=== PATIENT | male | born 1955 | race Caucasian/White ===

== ENCOUNTER → 2020-08-28 15:21 | Outpatient (CLI) | payer MEDICARE, SELFPAY ==
--- NOTE | ~2020-08-28 | XR_ITS ---
XR chest 2V DATE: 08/28/2020 15:34 INDICATION: Chronic obstructive pulmonary disease TECHNIQUE: 2 views COMPARISON: None FINDINGS: Normal heart size. An approximately 12 mm nodular density overlies the lower thoracic spine on the lateral view, not alisha dily detected on the PA view; consider CT thorax to exclude a pulmonary mass lesion. No hilar or mediastinal enlargement. No pulmonary infiltrate or consolidation, pleural effusion or pu lmonary vascular congestion or pneumothorax. 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 IMPRESSION: CT Thorax should be considered to exclude lower lobe mass (12 mm nodular density overlyin g lower thoracic spine on lateral view) Reviewed, dictated and finalized at location A. IMPRESSION: CT Thorax should be considered to exclude lower lobe mass (12 mm no dular density overlying lower thoracic spine on lateral view)
== END ==
PROVIDERS: PCP Family Medicine; Visit Provider Family Medicine
DX: J44.9 Chronic obstructive pulmonary disease, unspecified (principal); R91.8 Other nonspecific abnormal finding of lung field
CPT/HCPCS: 71046

== ENCOUNTER 2020-09-24 12:25 | Outpatient (CLI) | payer MEDICARE, SELFPAY ==
--- NOTE | 2020-09-24 16:20 | WPDPFTINT ---
PFT Procedure Performed PFT Procedure Performed Spirometry with Pre/Post Bronchodilator Plethysmography (Lung Vol) Diffusing Cap (DLCO) Flow Vol Loop PFT Interpretation This is a pulmonary function test with pre and post-bronchodilator spirometry, plethysmography and diffusing capacity. The test was performed and results interpreted in accordance with the 2019 and 2005 ATS/ERS Task Force guidelines respectively using the Global Lung Function Initiative-2012 reference equations. Patient demonstrated good effort and cooperation. Reproducibility criteria were met. The quality of the pre bronchodilator spirometry maneuver was Grade A and post bronchodilator spirometry maneuver was Grade A. Findings: Spirometry: There is decreased maximal expiratory airflow at all lung volumes with a concave expiratory flow tracing. The pre bronchodilator FVC is 3.40 L, 96% predicted. The pre bronchodilator FEV1 is 2.04 L, 74% predicted. The FEV1: FVC ratio 60%. The post bronchodilator FVC is 3.88 L, representing a 14% increase. The post bronchodilator FEV1 is 2.33 L, representing a 14% increase. Plethysmography: The total lung capacity is 5.08 L, 87% predicted. The functional residual capacity is 2.34 L, 73% predicted. The residual volume is 1.53 L, 74% predicted. Diffusing capacity: The absolute diffusion capacity is 20.5, 77% predicted. The diffusing capacity corrected for alveolar volume is 4.17, 98% predicted. Impression: There is a mild obstructive abnormality with significant improvement after inhaling a single dose of albuterol. The lung volumes are normal. The diffusing capacity is normal. There are no prior studies for comparison
== END 2020-09-24 12:26 | disposition home or self-care (01) ==
LOC: ANHPFT 12:28
PROVIDERS: PCP Family Medicine; Visit Provider Family Medicine
DX: J44.9 Chronic obstructive pulmonary disease, unspecified (principal); J94.2 Hemothorax
CPT/HCPCS: 94060; 94726; 94729

== ENCOUNTER 2020-10-08 18:23 | Inpatient (IN) | payer MEDICARE, SELFPAY ==
[2020-10-08] VITALS (11 sets, daily range): BP systolic 100–111; BP diastolic 60–84; PULSE 80–83; RESP 17–26; TEMP 38.5; O2SAT 78–97
--- NOTE | ~2020-10-08 | XR_ITS ---
EXAMINATION: XR chest 1V portable DATE: 10/16/2020 05:47 INDICATION: COVID-19 pneumonia. TECHNIQUE: A single frontal view of the chest was obtained. COMPARISON: Chest single view 10/14/2020, chest CT 10/09/2020 FINDINGS: Again seen is volume loss in right hemithorax. There are airspace opacities in all lung zon es bilaterally, right worse than left. No pleural effusion or pneumothorax. The heart size is normal. IMPRESSION: 1. Stable diffuse lung disease, right worse than left, consistent with pneumonia. Reviewed, dictated and finalized at location A. IMPRESSION: 1. Stable diffuse lung disease, right worse than left, consistent with pneumoni a.
--- NOTE | ~2020-10-08 | XR_ITS ---
EXAMINATION: XR chest 1V portable DATE: 10/14/2020 05:39 INDICATION: COVID TECHNIQUE: frontal view of the chest was obtained. COMPARISON: Chest radiograph dated 10/12/[address] dated 10/09/2020 FINDINGS: Right-sided predominant patchy airspace opacities with some improvement in previous more dense consol idation in the right mid to upper lung zone. No interval change in more streaky opacities at the left lower lung zone. No pneumothorax. Possible small right pleural effusion. Calcified nodules at the me dial right lower lung zone consistent with old granulomatous disease. Volume loss right hemithorax wi th rightward shift of the normal sized heart and mediastinum. The cardiomediastinal silhouette is nor mal. Visualized bones and soft tissues are unremarkable. IMPRESSION: 1. Asymmetric bilateral lung disease most prominent throughout the right lung where there is been mp e improvement in the right mid to upper lung zone and to lesser degree and without change at the left lower lung zone. The distribution and temporal progression of lung disease suggests COVID pneumonia potentially with improvement in superimposed secondary pneumonia in the right mid to upper lung zone. 2. Small right pleural effusion. Reviewed, dictated and finalized at location A. IMPRESSION: 1. Asymmetric bilateral lung disease most prominent throughout the right lung w here there is been some improvement in the right mid to upper lung zone and to lesser degree and without change at the left lower lung zone. The distribution and temporal progression of lung disease suggests COVID pneumonia potentially w ith improvement in superimposed secondary pneumonia in the right mid to upper l say zone. 2. Small right pleural effusion.
--- NOTE | ~2020-10-08 | US_ITS ---
EXAMINATION: US venous doppler [facility] DATE: 10/10/2020 15:45 INDICATION: Lower limb pain. TECHNIQUE: Grayscale ultrasound images without and with compression and Doppler ultrasound images of the bilateral lower extremity veins were obtained. COMPARISON: None. FINDINGS: The visualized portions of right common femoral vein, profunda (deep) femoral vein, femoral vein, pop liteal vein, peroneal veins, posterior tibial veins, and greater saphenous vein outflow are patent. The visualized portions of left common femoral vein, profunda femoral vein, femoral vein, popliteal v ein, peroneal veins, posterior tibial veins, and greater saphenous vein outflow are patent. IMPRESSION: 1. No deep venous thrombosis. Reviewed, dictated and finalized at location A.
--- NOTE | ~2020-10-08 | US_ITS ---
EXAMINATION: US abdomen limited DATE: 10/09/2020 17:20 INDICATION: Abnormal liver function tests. TECHNIQUE: Multiple grayscale and Doppler ultrasound images of the abdomen were obtained. COMPARISON: None. FINDINGS: The visualized portions of the head and body of the pancreas are normal. The liver is mahendra l without focal lesion. No liver surface nodularity. There is normal flow in main portal vein. The ga llbladder is normal in size. No gallstones or gallbladder wall thickening. There was no sonographic M urphy sign. The common duct is normal and measures 5 mm. IMPRESSION: 1. Normal right upper quadrant ultrasound. Reviewed, dictated and finalized at location A.
--- NOTE | ~2020-10-08 | CT_ITS ---
EXAMINATION: CTA chest PE protocol DATE: 10/09/2020 17:25 INDICATION: Shortness of breath. TECHNIQUE: Computed tomography angiography (CTA) of the chest was performed with 100 mL Omnipaque-350 intravenous contrast timed to evaluate the pulmonary arteries. Coronal maximum intensity projection 3D-reconstructions were created by the technologist. Automated exposure control and iterative reconst ruction technique were employed. The dose-length product was 363.53 mGy-cm. COMPARISON: Chest single view 10/08/2020, chest 2 views 08/28/2020 FINDINGS: There is volume loss of right hemithorax. There are widespread airspace and groundglass opa cities with air bronchograms in right lung, worst in right upper lobe. Chronic densities in right diane g lower lobe that may be aspirated barium. There are peripheral patchy airspace and groundglass opaci ties in left upper lobe and left lower lobe. There is a small right pleural effusion. The heart size is normal. There are coronary artery calcifications. No pericardial effusion. There is no pulmonary e mbolus. There is a small sliding hiatal hernia. There is mild thoracic spondylosis. There is a chroni c compression fracture of T4. IMPRESSION: 1. No pulmonary embolus. 2. Diffuse lung disease, worst in right upper lobe, consistent with pneumonia. 3. Small right pleural effusion. 4. Small sliding hiatal hernia. Reviewed, dictated and finalized at location A.
--- NOTE | ~2020-10-08 | XR_ITS ---
EXAMINATION: XR chest 1V portable DATE: 10/08/2020 19:34 INDICATION: Shortness of breath and fever. TECHNIQUE: A single frontal view of the chest was obtained. COMPARISON: Chest 2 views 08/28/2020 FINDINGS: There are airspace opacities in all right lung zones and left lower lung zone. No pleural e ffusion or pneumothorax. The heart size is normal. IMPRESSION: 1. Airspace opacities in right lung and left lower lung zone, consistent with pneumonia. Reviewed, dictated and finalized at location A. IMPRESSION: 1. Airspace opacities in right lung and left lower lung zone, consistent with p neumonia.
--- NOTE | ~2020-10-08 | XR_ITS ---
EXAMINATION: XR chest 1V portable INDICATION: Shortness of breath, COVID 19 TECHNIQUE: Portable AP chest at 0504 hours COMPARISON: 10/09/2020, 10/08/2020 FINDINGS: Diffuse bilateral airspace opacities persist, right greater than left. There is slight wors ening throughout the right lung. No pleural effusion or pneumothorax is identified. The cardiac silho uette is obscured. IMPRESSION: 1. Diffuse lung disease with interval worsening in the right lung, consistent with COVID 19 pneumonia . Reviewed, dictated and finalized at location A. IMPRESSION: 1. Diffuse lung disease with interval worsening in the right lung, consistent w ith COVID 19 pneumonia.
--- NOTE | 2020-10-08 18:39 | ECG_ITS ---
Measurements Intervals [place] Rate: 83 P: 50 DE: 190 QRS: -2 QRSD: 98 T: 52 QT: 375 QTc: 442 Interpretive Statements SINUS RHYTHM BORDERLINE T WAVE ABNORMALITY- HIGH LATERAL LEADS BASELINE ARTIFACT- I, II, III, AVR, AVL, AVF, V1-V6 BORDERLINE ECG Electronically Signed On 10-08-2020 20:07:54 CDT by Rohith Ramirez D.O.
--- NOTE | 2020-10-08 19:32 | ED.SOB ---
HPI - SOB/Dyspnea General Chief Complaint: Shortness of Breath/Dyspnea Stated Complaint: sob Time Seen by Provider: 10/08/20 19:32 History of Present Illness HPI Narrative: 65 yo male w/ h/o htn, prostate cancer presents to the ED c/o SOB. He reports that he has had a cough for at least the past 2 weeks. Over the past week or so his symptoms have become more severe he has become very short of breath. He had a fever up to 102 at home. He believes that his symptoms are actually mildly improved today. His RA O2 sat during triage was 78%. Related Data Home Medications Medication Instructions Recorded Confirmed fluticasone fur. 100 mcg-umeclid 1 inhalation INHALATION DAILY 12/21/18 08/28/20 62.5 mcg-vilant 25 mcg inhalat.powder tadalafil 20 mg tablet 20 mg PO DAILY PRN 04/19/20 08/28/20 Allergies Allergy/AdvReac Type Severity Reaction Status Date / Time No Known Allergies Allergy Verified 12/21/18 08:53 Review of Systems Review of Systems: All systems reviewed & are unremarkable except as noted in HPI and below Constitutional: Constitutional: Reports chills, Reports fever(s) and Reports weakness Eyes: Eyes: Reports no additional eye complaints ENT: Reports system reviewed and no additional complaints, except as documented Cardiovascular: Cardiovascular: Denies chest pain Respiratory: Respiratory: Reports chest congestion, Reports cough, Reports dyspnea and Reports wheezing Gastrointestinal: Comments: loss of appetite Neurologic: Reports system reviewed and no additional complaints, except as documented [facility] Past Medical History Medical History Abnormal chest x-ray with multiple lung nodules (08/28/20) 12 mm nodule overlying the lower thoracic spine on lateral view of chest x-ray Acute bronchitis Acute non-recurrent maxillary sinusitis BMI 29.0-29.9,adult Body mass index (bmi) 30.0-30.9, adult (09/21/18) Eczema (04/19/20) right thigh Gastro-esophageal reflux disease without esophagitis Polyp of colon Prostate cancer Radiation proctitis Family History Family History Sibling Family history of schizophrenia, Onset Age: 65 Patient's brother is in good health Mother Patient's mother is , Onset Age: 81 Family history of cardiovascular disease Family history of chronic obstructive pulmonary disease Family history of emphysema Family history of renal failure Father Patient's father is , Onset Age: 42 Grandparent Acute myocardial infarction Cerebrovascular accident Family history of Alzheimer's disease Family history of lung cancer Social History Social History Smoking status: Former smoker Alcohol intake: current Drinks per week: 21 Substance use: never Substance use type: does not use Exam Const: General: no acute distress, alert and ill appearing Orientation/consciousness: patient oriented x3 HENMT: Head: normal to inspection Neck: Neck: normal visual inspection and no lymphadenopathy Chest: Chest palpation & inspection: no tenderness Resp: Effort & Inspection: tachypneic Auscultation: clear to auscultation bilaterally, crackles, no rales, no rhonchi and wheezes Cardio: Jugular venous distension: no JVD Rate: regular rate Rhythm: regular rhythm Heart sounds: no murmurs GI: Inspection: non-distended GI Palp: Yes Soft to palpation and No Tenderness to palpation present (GI) Skin: General skin exam: normal color Neuro: General: patient oriented x3 and moves all extremities Speech: normal speech Extrem: General: no edema Psych: Appearance: well kempt Affect: normal affect Course Vital Signs Vital signs: Vital Signs Temperature 38.5 C H 10/08/20 18:34 Pulse Rate 83 10/08/20 18:34 Respiratory Rate 24 H 10/08/20 18:34 Blood Pressure 105/84
[2020-10-08 19:40] LABS: Basophils Percent Auto 0.2 % (0.2-1.2); Hemoglobin 12.8 g/dL (14.0-18.0); Immature Granulocyte Absolute 0.05 K/mm3 (0.00-0.031); Immature Granulocyte Percent A 1.1 % (0-0.5); Lymphocytes Absolute Auto 0.36 K/mm3 (0.9-3.2); Lymphocytes Percent Auto 7.9 % (18.3-44.2); Mean Corpuscular HGB Conc 33.7 g/dl (32-36); Mean Corpuscular Hemoglobin 29.5 pg (26-34); Mean Corpuscular Volume 87.6 fl (80-100); Mean Platelet Volume 11.5 fl (7.4-10.4); Monocytes Absolute Auto 0.3 K/mm3 (0.1-0.6); Monocytes Percent Auto 7.3 % (2.6-8.5); Neutrophils Absolute Auto 3.8 K/mm3 (1.3-6.7); Neutrophils Percent Auto 83.5 % (45.5-73.1); Platelet Count Result 168 k/mm3 (150-375); Red Blood Count 4.34 M/mm3 (4.6-6.20); Red Cell Distribution Width 13.8 % (11.5-14.5); White Blood Count 4.6 K/mm3 (4.5-10.0)
[2020-10-08 20:01] LABS: Anion Gap 12 mmol/L (8-16); Blood Urea Nitrogen 21 mg/dL (9-20); Calcium 9.1 mg/dL (8.4-10.2); Carbon Dioxide 27 mmol/L (22-30); Chloride 89 mmol/L (98-107); Estimated CRCL calculation 43 ml/min; Estimated Glomerular Filt Rate 47; Glucose 127 mg/dL (65-110); Potassium 3.8 mmol/L (3.4-5.0); Sodium 128 mmol/L (137-145)
[2020-10-08] MEDS: SODIUM CHLORIDE 0.9% IV 1,000 ML 999 ML IV CONT (20:37)
[2020-10-08 20:40] LABS: Alveolar/Arterial O2 Gradient 138.7 mmHg; Carboxyhemoglobin 0.5 % THb (0-2.0); Device ROOM AIR; Fractional Inspired Oxygen 36 %; HCO3 ABG 25.4 mEq/l (22.0-26.0); Methemoglobin ABG 0.2 %THb (0-1.5); Modified Allen's Test Pass; Oxygen Content ABG 17.3 %vol (16.0-22.0); Oxyhemoglobin 94.3 % THb (90.0-100.0); PO2 ABG 76.2 mmHg (80.0-100.0); PO2 FiO2 Ratio Arterial Blood 2.12 %; Site Drawn LEFT RADIAL; pH ABG 7.467 (7.350-7.450)
[2020-10-08] MEDS: ALBUTEROL SULFATE NEB 2.5 MG/0.5 ML INH 5 MG INHALATION (20:46)
[2020-10-08] MEDS: IPRATROPIUM BR 0.02% INH SOLN 0.5 MG/2.5 ML VIAL INHALATION (20:47)
[2020-10-08 20:59] LABS: Alanine Aminotransferase 62 U/L (4-50); Albumin Level 4.3 g/dL (3.5-5.1); Alkaline Phosphatase 42 U/L (38-126); Aspartate Amino Transferase 173 U/L (17-59); Bilirubin,Total 0.6 mg/dL (0.2-1.3)
--- NOTE | 2020-10-08 23:07 | PM.IMHP ---
H&P: HPI History of Present Illness Date/Time: 10/08/20 23:07 Chief Complaint: Shortness of breath Narrative: 65 yo male w/ h/o htn, prostate cancer recently completed his radiation treatment presents to the ED with c/o SOB. He reports that he has had a cough for at least the past 2 weeks. And has been coughing up quite a bit of sputum. No blood in the sputum. He has been progressively getting short of breath and hence came to the ER for evaluation. He also reports some fever lately with 1 time fever went up to 102 at home. He has been taking cough medicine at home which is Robitussin. He has been doing his breathing treatment regularly as well. On arrival to the ED his saturation was noted to be 78% on room air was placed on oxygen supplementation. Evaluation showed airspace opacities in the right lung and left lower lung zone consistent with pneumonia. COVID test was done and is pending resolved. He did finish the COVID vaccination in the past. He is admitted for further evaluation and management. Review of Systems Review of Systems: - CONSTITUTIONAL: Denies weight loss, reports fever and chills. - HEENT: Denies changes in vision and hearing - RESPIRATORY: Reports SOB and cough. - CV: Denies palpitations and CP. - GI: Denies abdominal pain, nausea, vomiting and diarrhea. - : Denies dysuria and urinary frequency. - MSK: Denies myalgia and joint pain. - SKIN: Denies rash and pruritus. - NEUROLOGICAL: Denies headache and syncope. - PSYCHIATRIC: Denies recent changes in mood. Denies anxiety and depression. All systems reviewed & are unremarkable except as noted in HPI and below Constitutional: Constitutional: Reports fatigue and Reports weakness Neurologic: Reports weakness Endocrine: Endocrine: Reports fatigue [facility] Past Medical History Medical History Abnormal chest x-ray with multiple lung nodules (08/28/20) 12 mm nodule overlying the lower thoracic spine on lateral view of chest x-ray Acute bronchitis Acute non-recurrent maxillary sinusitis BMI 29.0-29.9,adult Body mass index (bmi) 30.0-30.9, adult (09/21/18) Eczema (04/19/20) right thigh Gastro-esophageal reflux disease without esophagitis Polyp of colon Prostate cancer Radiation proctitis Family History Family History Sibling Family history of schizophrenia, Onset Age: 65 Patient's brother is in good health Mother Patient's mother is , Onset Age: 81 Family history of cardiovascular disease Family history of chronic obstructive pulmonary disease Family history of emphysema Family history of renal failure Father Patient's father is , Onset Age: 42 Grandparent Acute myocardial infarction Cerebrovascular accident Family history of Alzheimer's disease Family history of lung cancer Social History Social History Smoking status: Former smoker Alcohol intake: current Drinks per week: 21 Substance use: never Substance use type: does not use Meds Home Medications and Allergies Home Medications Medication Instructions Recorded Confirmed Type fluticasone fur. 100 mcg-umeclid 1 inhalation INHALATION DAILY 12/21/18 08/28/20 History 62.5 mcg-vilant 25 mcg inhalat.powder allopurinol 300 mg tablet 300 mg PO DAILY #90 tablet 10/31/19 08/28/20 Rx amlodipine 10 mg tablet 10 mg PO DAILY #90 tablet 10/31/19 08/28/20 Rx fenofibrate nanocrystallized 145 145 mg PO DAILY #90 tablet 10/31/19 08/28/20 Rx mg tablet metoprolol succinate 100 mg 100 mg PO DAILY #90 tablet 10/31/19 08/28/20 Rx tablet,extended release 24 hr omeprazole 40 mg capsule,delayed 40 mg PO DAILY #90 cap 03/13/20 08/28/20 Rx release tadalafil 20 mg tablet 20 mg PO DAILY PRN 04/19/20 08/28/20 History triamcinolone acetonide 0.5 % 1 applic TOPICAL BI
[2020-10-09] VITALS (14 sets, daily range): BP systolic 102–118; BP diastolic 55–82; PULSE 63–81; RESP 18–26; TEMP 36.3–37.7; O2SAT 92–99
[2020-10-09] MEDS: DEXAMETHASONE SOD PHOS INJ 4 MG/ML VIAL 6 MG IV PUSH ×2 (00:39→09:47)
[2020-10-09] MEDS: SODIUM CHLORIDE 0.9% IV 1,000 ML 75 ML IV CONT (00:44)
[2020-10-09] MEDS: diazePAM (*CRX) 10 MG TABLET PO ×2 (00:45→21:51)
[2020-10-09 01:37] LABS: NT Pro B Type Natriuretic Pept 118 pg/mL (5-100)
[2020-10-09] MEDS: ALBUTEROL SULFATE NEB 2.5 MG/0.5 ML INH 5 MG INHALATION ×2 (02:42→09:29)
[2020-10-09] MEDS: IPRATROPIUM BR 0.02% INH SOLN 0.5 MG/2.5 ML VIAL INHALATION ×2 (02:43→09:30)
--- NOTE | 2020-10-09 08:18 | ADMGEN ---
This patient, Heladio Cantu, was admitted to 3 [facility] Surg Room 332-01. Patient/family oriented to hospital policies and general routines including ID bracelet, bed and alarms, visiting hours, pain management, procedures, bathroom and other care routines, personal items, smoking policy, room service/diet, and visiting hours. Information on how to activate the Rapid Response Team has been discussed. Patient/Family are encouraged to report perceived risks to care and to ask questions if they do not understand what they are told or what they should do. Patient discussed health history, denying things that later showed up in his record. It was unclear whether this was because he was tired or just having difficulty expressing himself r/t difficulty hearing. He was plesant, though he was first found pacing around the room and was encouraged to stay in bed when not assisted. He had no observed wounds or skin problems. He discussed psych history and problems at home. 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
[2020-10-09 09:33] LABS: Alanine Aminotransferase 60 U/L (4-50); Albumin Level 3.9 g/dL (3.5-5.1); Alkaline Phosphatase 37 U/L (38-126); Anion Gap 11 mmol/L (8-16); Aspartate Amino Transferase 135 U/L (17-59); Bilirubin,Total 0.9 mg/dL (0.2-1.3); Blood Urea Nitrogen 16 mg/dL (9-20); CRP 8.9 mg/dL (<1.0); Calcium 8.4 mg/dL (8.4-10.2); Carbon Dioxide 24 mmol/L (22-30); Chloride 104 mmol/L (98-107); Estimated CRCL calculation 58 ml/min; Estimated Glomerular Filt Rate > 60; Glucose 148 mg/dL (65-110); Lactate Dehydrogenase 1161 U/L (313-618); Sodium 139 mmol/L (137-145)
[2020-10-09] MEDS: METOPROLOL SUCCINATE EXT REL 100 MG TABCR PO (09:45)
[2020-10-09] MEDS: SERTRALINE HCL 50 MG TABLET PO (09:45)
[2020-10-09] MEDS: FENOFIBRATE NANOCRYSTALLIZED 145 MG TABLET PO (09:45)
[2020-10-09 09:46] LABS: D Dimer 5.72 ug/mL (<0.48)
[2020-10-09] MEDS: ENOXAPARIN 40 MG/0.4 ML SYRINGE SUB-Q (09:46)
[2020-10-09] MEDS: PANTOPRAZOLE 40 MG TABLET PO (09:46)
[2020-10-09] MEDS: allopurinoL 300 MG TABLET PO (09:46)
[2020-10-09] MEDS: SIMVASTATIN 20 MG TABLET PO (09:46)
[2020-10-09] MEDS: FLUTICASONE/UMECLIDIN/VILANTER 100-62.5-25 MCG ELLIPTA 1 PUFF INHALATION (10:03)
[2020-10-09] MEDS: BUMETANIDE INJ 1 MG/4 ML VIAL IV PUSH (10:50)
[2020-10-09] MEDS: PSYLLIUM POWDER PACKET 1 PACKET BY MOUTH (10:51)
--- NOTE | 2020-10-09 13:57 | P.PNIM_ITS ---
Progress Note: A&P Assessment and Plan (1) Acute and chronic respiratory failure with hypoxia: Code(s): J96.21 - Acute and chronic respiratory failure with hypoxia Status: Acute Assessment and Plan: * Chest xray does show PNA * Blood gas is Respiratory alkalosis * Supplemental oxygen to maintain a saturation greater than 94% (2) Pneumonia: Qualifiers: Laterality: bilateral Lung location: lower lobe of lung Pneumonia type: due to unspecified organism Qualified Code(s): J18.9 - Pneumonia, unspecified organism Code(s): J18.9 - Pneumonia, unspecified organism Status: Acute Assessment and Plan: * Chest xray showed pneumonia, looks like covid * Patient stated he was vaccinated * WBC is 4.6, neutro 83.5 * IV azithromycin and Rocephin * will start patient on remdesivir * Decadron IV 6mg, will change to BID * lovenox * COVID test pending * Trelegy ellipta, albuterol, and atrovent * legionella, mycoplasma pending (3) Chronic obstructive pulmonary disease: Qualifiers: COPD type: unspecified COPD Qualified Code(s): J44.9 - Chronic obstructive pulmonary disease, unspecified Code(s): J44.9 - Chronic obstructive pulmonary disease, unspecified Status: Acute Assessment and Plan: * Continue home Trelegy Ellipta and albuterol * supplemental oxygen * titrate to maintain saturation of greater than 92% (4) Person under investigation for COVID-19: Code(s): Z20.822 - Contact with and (suspected) exposure to COVID-19 Status: Acute Assessment and Plan: * Covid swab pending * Will start remdesivir * Decadron already started. * Inflammatory markers elevated with a ferritin of 1640, LDH of 1161, CRP of 8.9, and a D-dimer of 5.72 * CTA ordered and pending (5) Mixed hyperlipidemia: Code(s): E78.2 - Mixed hyperlipidemia Status: Acute Assessment and Plan: * Continue fenofibrate and simvastatin (6) Chronic depression: Code(s): F32.9 - Major depressive disorder, single episode, unspecified Status: Acute Assessment and Plan: * Continue amitriptyline and sertraline * Continue home Ambien at night (7) Chronic anxiety: Code(s): F41.9 - Anxiety disorder, unspecified Status: Acute Assessment and Plan: * Continue home diazepam 10 mg b.i.d. p.r.n. (8) Essential (primary) hypertension: Code(s): I10 - Essential (primary) hypertension Status: Acute Assessment and Plan: * Current blood pressure 114/68 * Continue home meds * Adjust medications as needed * Trend blood pressure Time Spent With Patient Time with patient: Greater than 35 minutes Subjective Date/time seen: 10/09/20 11:15am Interval history: Patient is a 65-year-old male who is here for shortness of breath. Patient stated that all of this started about 3 weeks ago. He also stated that he gets very short of breath with talking activity. Patient is currently on 15 LNC and 15 L non-rebreather. Patient also has a cough and he says that he is getting some stuff up but not all the time. Patient also complains of a little fevers sweats and chills. Patient also stated that he is very weak and has back pain. I did notice patient was tremoring I asked him about tremors he said he does not really ever have tremors. Patient denies chest
--- NOTE | 2020-10-09 13:57 | PM.IMPN ---
Progress Note: A&P Assessment and Plan (1) Acute and chronic respiratory failure with hypoxia: Code(s): J96.21 - Acute and chronic respiratory failure with hypoxia Status: Acute Assessment and Plan: Chest xray does show PNA Blood gas is Respiratory alkalosis Supplemental oxygen to maintain a saturation greater than 94% (2) Pneumonia: Qualifiers: Laterality: bilateral Lung location: lower lobe of lung Pneumonia type: due to unspecified organism Qualified Code(s): J18.9 - Pneumonia, unspecified organism Code(s): J18.9 - Pneumonia, unspecified organism Status: Acute Assessment and Plan: Chest xray showed pneumonia, looks like covid Patient stated he was vaccinated WBC is 4.6, neutro 83.5 IV azithromycin and Rocephin will start patient on remdesivir Decadron IV 6mg, will change to BID lovenox COVID test pending Trelegy ellipta, albuterol, and atrovent legionella, mycoplasma pending (3) Chronic obstructive pulmonary disease: Qualifiers: COPD type: unspecified COPD Qualified Code(s): J44.9 - Chronic obstructive pulmonary disease, unspecified Code(s): J44.9 - Chronic obstructive pulmonary disease, unspecified Status: Acute Assessment and Plan: Continue home Trelegy Ellipta and albuterol supplemental oxygen titrate to maintain saturation of greater than 92% (4) Person under investigation for COVID-19: Code(s): Z20.822 - Contact with and (suspected) exposure to COVID-19 Status: Acute Assessment and Plan: Covid swab pending Will start remdesivir Decadron already started. Inflammatory markers elevated with a ferritin of 1640, LDH of 1161, CRP of 8.9, and a D-dimer of 5.72 CTA ordered and pending (5) Mixed hyperlipidemia: Code(s): E78.2 - Mixed hyperlipidemia Status: Acute Assessment and Plan: Continue fenofibrate and simvastatin (6) Chronic depression: Code(s): F32.9 - Major depressive disorder, single episode, unspecified Status: Acute Assessment and Plan: Continue amitriptyline and sertraline Continue home Ambien at night (7) Chronic anxiety: Code(s): F41.9 - Anxiety disorder, unspecified Status: Acute Assessment and Plan: Continue home diazepam 10 mg b.i.d. p.r.n. (8) Essential (primary) hypertension: Code(s): I10 - Essential (primary) hypertension Status: Acute Assessment and Plan: Current blood pressure 114/68 Continue home meds Adjust medications as needed Trend blood pressure Time Spent With Patient Time with patient: Greater than 35 minutes Subjective Date/time seen: 10/09/20 11:15am Interval history: Patient is a 65-year-old male who is here for shortness of breath. Patient stated that all of this started about 3 weeks ago. He also stated that he gets very short of breath with talking activity. Patient is currently on 15 LNC and 15 L non-rebreather. Patient also has a cough and he says that he is getting some stuff up but not all the time. Patient also complains of a little fevers sweats and chills. Patient also stated that he is very weak and has back pain. I did notice patient was tremoring I asked him about tremors he said he does not really ever have tremors. Patient denies chest pain, nausea, vomiting, abdominal pain, headaches, or pain on inspiration. On a side note this patient did state that he had prostate cancer which he was treated with. Patient also stated he used to be a smoker and quit lungs time ago. I also notice that patient had it chest x-ray August of this year that showed a pulmonary nodule however does not show on the most recent chest x-ray. Review of Systems Review of Systems: All systems reviewed & are unremarkable except as noted in HPI and below Exam Const: General: cooperative, healthy mariama
[2020-10-09 16:20] LABS: Alanine Aminotransferase 65 U/L (4-50); Estimated CRCL calculation 54 ml/min; Estimated Glomerular Filt Rate > 60
[2020-10-09 16:33] LABS: Alanine Aminotransferase 66 U/L (4-50); Albumin Level 4.4 g/dL (3.5-5.1); Alkaline Phosphatase 40 U/L (38-126); Aspartate Amino Transferase 162 U/L (17-59); Bilirubin,Total 0.7 mg/dL (0.2-1.3)
[2020-10-09] MEDS: hydrALAZINE HCL 50 MG TABLET PO (16:35)
[2020-10-09 19:55] LABS: SARS-CoV-2 RNA PCR Positive
[2020-10-09] MEDS: ALBUTEROL SULFATE (*SP) AEROSOL 1 PUFF 2 PUFF INHALATION (20:12)
[2020-10-09] MEDS: AMITRIPTYLINE HCL 10 MG TABLET 20 MG PO (20:18)
[2020-10-09] MEDS: REMDESIVIR 200 MG/NS 250 ML 200 MG/250 ML BAG 250 MG IVPB (23:30)
[2020-10-10] VITALS (14 sets, daily range): BP systolic 99–116; BP diastolic 52–68; PULSE 63–91; RESP 18–20; TEMP 36–36.6; O2SAT 88–95
[2020-10-10] MEDS: ALBUTEROL SULFATE (*SP) AEROSOL 1 PUFF 2 PUFF INHALATION ×4 (03:25→20:31)
[2020-10-10 06:49] LABS: Basophils Percent Auto 0.1 % (0.2-1.2); Hematocrit 39.8 % (42.0-52.0); Hemoglobin 12.9 g/dL (14.0-18.0); Immature Granulocyte Absolute 0.14 K/mm3 (0.00-0.031); Immature Granulocyte Percent A 1.9 % (0-0.5); Lymphocytes Absolute Auto 0.49 K/mm3 (0.9-3.2); Lymphocytes Percent Auto 6.6 % (18.3-44.2); Mean Corpuscular HGB Conc 32.4 g/dl (32-36); Mean Corpuscular Hemoglobin 29.1 pg (26-34); Mean Corpuscular Volume 89.8 fl (80-100); Mean Platelet Volume 11.2 fl (7.4-10.4); Monocytes Absolute Auto 0.6 K/mm3 (0.1-0.6); Monocytes Percent Auto 7.4 % (2.6-8.5); Neutrophils Absolute Auto 6.3 K/mm3 (1.3-6.7); Platelet Count Result 212 k/mm3 (150-375); Red Blood Count 4.43 M/mm3 (4.6-6.20); Red Cell Distribution Width 13.8 % (11.5-14.5); White Blood Count 7.4 K/mm3 (4.5-10.0)
[2020-10-10 06:59] LABS: INR 1.1; Prothrombin Time 13.6 Seconds (11.1-14.7)
[2020-10-10 07:12] LABS: Alanine Aminotransferase 56 U/L (4-50); Albumin Level 3.8 g/dL (3.5-5.1); Alkaline Phosphatase 37 U/L (38-126); Anion Gap 8 mmol/L (8-16); Aspartate Amino Transferase 92 U/L (17-59); Bilirubin,Total 0.7 mg/dL (0.2-1.3); Blood Urea Nitrogen 17 mg/dL (9-20); Calcium 8.3 mg/dL (8.4-10.2); Carbon Dioxide 31 mmol/L (22-30); Chloride 101 mmol/L (98-107); Estimated CRCL calculation 58 ml/min; Estimated Glomerular Filt Rate > 60; Glucose 142 mg/dL (65-110); Magnesium 2.3 mg/dL (1.6-2.3); Potassium 3.9 mmol/L (3.4-5.0); Sodium 140 mmol/L (137-145)
[2020-10-10] MEDS: PSYLLIUM POWDER PACKET 1 PACKET BY MOUTH (08:47)
[2020-10-10] MEDS: PANTOPRAZOLE 40 MG TABLET PO (08:51)
[2020-10-10] MEDS: hydrALAZINE HCL 50 MG TABLET PO ×2 (08:52→17:20)
[2020-10-10] MEDS: FENOFIBRATE NANOCRYSTALLIZED 145 MG TABLET PO (08:52)
[2020-10-10] MEDS: allopurinoL 300 MG TABLET PO (08:52)
[2020-10-10] MEDS: SIMVASTATIN 20 MG TABLET PO (08:52)
[2020-10-10] MEDS: SERTRALINE HCL 50 MG TABLET PO (08:52)
[2020-10-10] MEDS: amLODIPine BESYLATE 5 MG TABLET 10 MG PO (08:52)
[2020-10-10] MEDS: ENOXAPARIN 40 MG/0.4 ML SYRINGE SUB-Q (08:55)
[2020-10-10] MEDS: METOPROLOL SUCCINATE EXT REL 100 MG TABCR PO (08:55)
[2020-10-10] MEDS: FLUTICASONE/UMECLIDIN/VILANTER 100-62.5-25 MCG ELLIPTA 1 PUFF INHALATION (09:45)
--- NOTE | 2020-10-10 16:54 | PM.IMPN ---
Progress Note: A&P Assessment and Plan (1) Acute and chronic respiratory failure with hypoxia: Code(s): J96.21 - Acute and chronic respiratory failure with hypoxia Status: Acute Assessment and Plan: Secondary to pneumonia due to COVID -continue oxygen supplementation for sat <90 -I spoke to him about the concerns for his severity and that he may need high-flow oxygen for intubation if he worsens. He would like to be a full code -continue remdesivir, Decadron and antibiotics since he has a consolidation on his CT which is concerning for secondary bacterial pneumonia. Vancomycin was added today. -obtain sputum sample (2) Pneumonia due to COVID-19 virus: Code(s): U07.1 - COVID-19; J12.82 - Pneumonia due to coronavirus disease 2018 Status: Acute Assessment and Plan: As above (3) Pneumonia: Qualifiers: Laterality: bilateral Lung location: lower lobe of lung Pneumonia type: due to unspecified organism Qualified Code(s): J18.9 - Pneumonia, unspecified organism Code(s): J18.9 - Pneumonia, unspecified organism Status: Acute Assessment and Plan: As above (4) Chronic obstructive pulmonary disease: Qualifiers: COPD type: unspecified COPD Qualified Code(s): J44.9 - Chronic obstructive pulmonary disease, unspecified Code(s): J44.9 - Chronic obstructive pulmonary disease, unspecified Status: Acute Assessment and Plan: Continue home Trelegy Ellipta and albuterol -continue oxygen for sats less than 90 (5) Person under investigation for COVID-19: Code(s): Z20.822 - Contact with and (suspected) exposure to COVID-19 Status: Acute Assessment and Plan: PCR positive (6) Mixed hyperlipidemia: Code(s): E78.2 - Mixed hyperlipidemia Status: Acute Assessment and Plan: Continue fenofibrate and simvastatin (7) Chronic depression: Code(s): F32.9 - Major depressive disorder, single episode, unspecified Status: Acute Assessment and Plan: Continue amitriptyline, Valium and sertraline (8) Chronic anxiety: Code(s): F41.9 - Anxiety disorder, unspecified Status: Acute Assessment and Plan: Continue home diazepam 10 mg b.i.d. p.r.n. -patient did not realize his Valium was as needed. I have asked the nurse to give him 1 since the patient is feeling anxious (9) Essential (primary) hypertension: Code(s): I10 - Essential (primary) hypertension Status: Acute Assessment and Plan: Current blood pressure 114/68 -continue amlodipine, hydralazine, and metoprolol Time Spent With Patient Time with patient: 25 - 35 minutes Subjective Date/time seen: 10/10/20 16:54 Interval history: Pt is a 65-year-old male here for COVID pneumonia. Patient was seen today and states he is not doing well. He continues to cough and have shortness of breath. He also is a little upset about the pacheco medication. He did not realize he had COVID and we had a long talk about his diagnosis and plan of care. At this time we will continue with antibiotics since he has a focal consolidation on his CTA but he also is positive for COVID. I spoke to him about COVID treatments and he went to continue steroids and remdesivir but hold off on baricitinab at this time. He states he was vaccinated with [email or web address]. He has no known sick contacts. He says he has chills and overall feels very bad. In the event of his worsening, he would like to be intubated. He states he is a little tremulous because he usually takes Valium twice a day and has only been getting a once a day. Review of Systems Review of Systems: All systems reviewed & are unremarkable except as noted in HPI and below Exam Narrative: General: Well developed well nourished patient in NAD but acutely ill HEENT: normocephalic Neck: supple Neuro: Alert and oriented x4
[2020-10-10] MEDS: diazePAM (*CRX) 10 MG TABLET PO ×2 (17:20→23:21)
[2020-10-10] MEDS: AMITRIPTYLINE HCL 10 MG TABLET 20 MG PO (22:33)
[2020-10-11] VITALS (11 sets, daily range): BP systolic 100–149; BP diastolic 53–73; PULSE 57–82; RESP 16–22; TEMP 35.9–37.2; O2SAT 90–96
[2020-10-11] MEDS: ALBUTEROL SULFATE (*SP) AEROSOL 1 PUFF 2 PUFF INHALATION ×6 (00:13→19:57)
[2020-10-11] MEDS: REMDESIVIR 100 MG/NS 250 ML 100 MG/250 ML BAG 250 MG IVPB ×2 (00:36→20:50)
[2020-10-11 07:06] LABS: Hematocrit 37.4 % (42.0-52.0); Hemoglobin 12.4 g/dL (14.0-18.0); Mean Corpuscular HGB Conc 33.2 g/dl (32-36); Mean Corpuscular Hemoglobin 29.3 pg (26-34); Mean Corpuscular Volume 88.4 fl (80-100); Platelet Count Result 243 k/mm3 (150-375); Red Blood Count 4.23 M/mm3 (4.6-6.20); Red Cell Distribution Width 13.9 % (11.5-14.5); White Blood Count 6.2 K/mm3 (4.5-10.0)
[2020-10-11 07:19] LABS: INR 1.1; Prothrombin Time 13.9 Seconds (11.1-14.7)
[2020-10-11 07:21] LABS: D Dimer 1.05 ug/mL (<0.48)
[2020-10-11 07:27] LABS: Alanine Aminotransferase 50 U/L (4-50); Albumin Level 3.4 g/dL (3.5-5.1); Alkaline Phosphatase 37 U/L (38-126); Anion Gap 5 mmol/L (8-16); Aspartate Amino Transferase 71 U/L (17-59); Bilirubin,Total 0.6 mg/dL (0.2-1.3); Blood Urea Nitrogen 21 mg/dL (9-20); CRP 3.6 mg/dL (<1.0); Calcium 8.3 mg/dL (8.4-10.2); Carbon Dioxide 31 mmol/L (22-30); Chloride 102 mmol/L (98-107); Estimated CRCL calculation 58 ml/min; Estimated Glomerular Filt Rate > 60; Glucose 113 mg/dL (65-110); Lactate Dehydrogenase 820 U/L (313-618); Potassium 3.7 mmol/L (3.4-5.0); Sodium 138 mmol/L (137-145)
[2020-10-11] MEDS: PANTOPRAZOLE 40 MG TABLET PO (08:48)
[2020-10-11] MEDS: METOPROLOL SUCCINATE EXT REL 100 MG TABCR PO (08:49)
[2020-10-11] MEDS: hydrALAZINE HCL 50 MG TABLET PO (08:49)
[2020-10-11] MEDS: FENOFIBRATE NANOCRYSTALLIZED 145 MG TABLET PO (08:50)
[2020-10-11] MEDS: SIMVASTATIN 20 MG TABLET PO (08:50)
[2020-10-11] MEDS: amLODIPine BESYLATE 5 MG TABLET 10 MG PO (08:50)
[2020-10-11] MEDS: ENOXAPARIN 40 MG/0.4 ML SYRINGE SUB-Q (08:51)
[2020-10-11] MEDS: SERTRALINE HCL 50 MG TABLET PO (08:51)
[2020-10-11] MEDS: PSYLLIUM POWDER PACKET 1 PACKET BY MOUTH (08:51)
[2020-10-11] MEDS: allopurinoL 300 MG TABLET PO (08:51)
[2020-10-11] MEDS: FLUTICASONE/UMECLIDIN/VILANTER 100-62.5-25 MCG ELLIPTA 1 PUFF INHALATION (10:05)
[2020-10-11] MEDS: diazePAM (*CRX) 10 MG TABLET PO ×2 (12:20→22:04)
[2020-10-11 12:34] LABS: Mycoplasma IgM Antibody Titer 74 U/mL (<770)
--- NOTE | 2020-10-11 14:09 | PM.IMPN ---
Progress Note: A&P Assessment and Plan (1) Acute and chronic respiratory failure with hypoxia: Code(s): J96.21 - Acute and chronic respiratory failure with hypoxia Status: Acute Assessment and Plan: Secondary to pneumonia due to COVID -continue oxygen supplementation for sat <90 -I spoke to him about the concerns for his severity and that he may need high-flow oxygen for intubation if he worsens. He would like to be a full code -continue remdesivir, Decadron and antibiotics since he has a consolidation on his CT which is concerning for secondary bacterial pneumonia. Vancomycin was added today. -sputum culture pending -I am cautioning use of Baricitinib due to consolidation on the CT possibly having a secondary bacterial infection. Spoke to the pt about benefits and risks and he would like to hold off on this time which I think is an appropriate choice. Will reassess daily -repeat CXR tomorrow -inflammatory labs and liver enzymes have improved -pt continues to take off his pulse ox and I have asked him to try and keep it on -wean o2 as tolerated -pt vaccinated with [employer] earlier this year (2) Pneumonia due to COVID-19 virus: Code(s): U07.1 - COVID-19; J12.82 - Pneumonia due to coronavirus disease 2018 Status: Acute Assessment and Plan: As above (3) Pneumonia: Qualifiers: Laterality: bilateral Lung location: lower lobe of lung Pneumonia type: due to unspecified organism Qualified Code(s): J18.9 - Pneumonia, unspecified organism Code(s): J18.9 - Pneumonia, unspecified organism Status: Acute Assessment and Plan: As above (4) Chronic obstructive pulmonary disease: Qualifiers: COPD type: unspecified COPD Qualified Code(s): J44.9 - Chronic obstructive pulmonary disease, unspecified Code(s): J44.9 - Chronic obstructive pulmonary disease, unspecified Status: Acute Assessment and Plan: Continue home Trelegy Ellipta and albuterol -continue oxygen for sats less than 90 (5) Person under investigation for COVID-19: Code(s): Z20.822 - Contact with and (suspected) exposure to COVID-19 Status: Acute Assessment and Plan: PCR positive (6) Mixed hyperlipidemia: Code(s): E78.2 - Mixed hyperlipidemia Status: Acute Assessment and Plan: Continue fenofibrate and simvastatin (7) Chronic depression: Code(s): F32.9 - Major depressive disorder, single episode, unspecified Status: Acute Assessment and Plan: Continue amitriptyline, Valium and sertraline (8) Chronic anxiety: Code(s): F41.9 - Anxiety disorder, unspecified Status: Acute Assessment and Plan: Continue home diazepam 10 mg b.i.d. p.r.n. -patient doing better with anxiety today (9) Essential (primary) hypertension: Code(s): I10 - Essential (primary) hypertension Status: Acute Assessment and Plan: Current blood pressure 115/58 -continue amlodipine, hydralazine, and metoprolol Subjective Date/time seen: 10/11/20 14:09 Interval history: Pt is a 65-year-old male here for COVID pneumonia. Patient was seen today and says he is doing much better than yesterday. He says his cough has improved and he feels less short of breath. He is only walked short distances but feels okay doing so. He denies any chest pain. He says his appetite is better today than it has been in 3 weeks. Exam Narrative: General: Well developed well nourished patient in NAD HEENT: normocephalic Neck: supple Neuro: Alert and oriented x4 CV:RRR Resp: Crackles bilaterally, good air flow. No wheezing. Venturi mask applied Abd: Soft, non distended. No pain to palpation. Positive bowel sounds Extremities: No swelling, erythema, or pain to palpation. Objective Data Vital Signs Vital Signs: Vital Signs - 24 hr 10/10/20 16:00 10/10/20 17:40 10/10/20 20:00 T
[2020-10-11] MEDS: AMITRIPTYLINE HCL 10 MG TABLET 20 MG PO (20:20)
[2020-10-11 21:56] LABS: Legionella pneumophila Ag Ur Not Detected (Not Detected)
[2020-10-12] VITALS (19 sets, daily range): BP systolic 103–149; BP diastolic 52–77; PULSE 54–76; RESP 18–24; TEMP 35.8–37; O2SAT 80–98
[2020-10-12 00:05] LABS: Pneumococcal Antigen Urine Not Detected (Not Detected)
[2020-10-12] MEDS: ALBUTEROL SULFATE (*SP) AEROSOL 1 PUFF 2 PUFF INHALATION ×5 (00:42→20:56)
[2020-10-12] MEDS: ZOLPIDEM TARTRATE (*CRX) 5 MG TABLET 10 MG PO (01:26)
[2020-10-12 06:43] LABS: Hematocrit 39.4 % (42.0-52.0); Hemoglobin 12.7 g/dL (14.0-18.0); Mean Corpuscular HGB Conc 32.2 g/dl (32-36); Mean Corpuscular Hemoglobin 29.3 pg (26-34); Mean Platelet Volume 10.8 fl (7.4-10.4); Platelet Count Result 307 k/mm3 (150-375); Red Blood Count 4.33 M/mm3 (4.6-6.20); Red Cell Distribution Width 13.7 % (11.5-14.5); White Blood Count 6.5 K/mm3 (4.5-10.0)
[2020-10-12 06:54] LABS: Alanine Aminotransferase 42 U/L (4-50); Estimated CRCL calculation 58 ml/min; Estimated Glomerular Filt Rate > 60
[2020-10-12 06:58] LABS: INR 1.1; Prothrombin Time 13.8 Seconds (11.1-14.7)
[2020-10-12 08:00] LABS: Alanine Aminotransferase 43 U/L (4-50); Albumin Level 3.4 g/dL (3.5-5.1); Alkaline Phosphatase 33 U/L (38-126); Anion Gap 9 mmol/L (8-16); Aspartate Amino Transferase 49 U/L (17-59); Bilirubin,Total 0.6 mg/dL (0.2-1.3); Blood Urea Nitrogen 23 mg/dL (9-20); CRP 2.3 mg/dL (<1.0); Calcium 8.4 mg/dL (8.4-10.2); Carbon Dioxide 26 mmol/L (22-30); Chloride 102 mmol/L (98-107); Estimated CRCL calculation 64 ml/min; Estimated Glomerular Filt Rate > 60; Glucose 106 mg/dL (65-110); Potassium 3.9 mmol/L (3.4-5.0); Sodium 137 mmol/L (137-145)
[2020-10-12] MEDS: FLUTICASONE/UMECLIDIN/VILANTER 100-62.5-25 MCG ELLIPTA 1 PUFF INHALATION (09:20)
[2020-10-12] MEDS: PSYLLIUM POWDER PACKET 1 PACKET BY MOUTH (09:26)
[2020-10-12] MEDS: FENOFIBRATE NANOCRYSTALLIZED 145 MG TABLET PO (09:27)
[2020-10-12] MEDS: ENOXAPARIN 40 MG/0.4 ML SYRINGE SUB-Q (09:27)
[2020-10-12] MEDS: allopurinoL 300 MG TABLET PO (09:27)
[2020-10-12] MEDS: METOPROLOL SUCCINATE EXT REL 100 MG TABCR PO (09:27)
[2020-10-12] MEDS: amLODIPine BESYLATE 5 MG TABLET 10 MG PO (09:29)
[2020-10-12] MEDS: hydrALAZINE HCL 50 MG TABLET PO (09:29)
[2020-10-12] MEDS: SERTRALINE HCL 50 MG TABLET PO (09:30)
[2020-10-12] MEDS: SIMVASTATIN 20 MG TABLET PO (09:30)
[2020-10-12] MEDS: PANTOPRAZOLE 40 MG TABLET PO (09:30)
--- NOTE | 2020-10-12 14:56 | PM.IMPN ---
Progress Note: A&P Assessment and Plan (1) Acute and chronic respiratory failure with hypoxia: Code(s): J96.21 - Acute and chronic respiratory failure with hypoxia Status: Acute Assessment and Plan: Secondary to pneumonia due to COVID -continue oxygen supplementation for sat <90 -I spoke to him about the concerns for his severity and that he may need high-flow oxygen for intubation if he worsens. He would like to be a full code -continue remdesivir, Decadron and antibiotics since he has a consolidation on his CT which is concerning for secondary bacterial pneumonia. Vancomycin was added 10/11/20 -sputum culture growing normal mario -I am cautioning use of Baricitinib due to consolidation on the CT possibly having a secondary bacterial infection. Spoke to the pt about benefits and risks and he would like to hold off on this time which I think is an appropriate choice. Will reassess daily -chest x-ray shows pneumonia, worse in the right lung -inflammatory labs and liver enzymes have improved -wean o2 as tolerated -pt vaccinated with [employer] earlier this year -order PT and OT (2) Pneumonia due to COVID-19 virus: Code(s): U07.1 - COVID-19; J12.82 - Pneumonia due to coronavirus disease 2018 Status: Acute Assessment and Plan: As above (3) Pneumonia: Qualifiers: Laterality: bilateral Lung location: lower lobe of lung Pneumonia type: due to unspecified organism Qualified Code(s): J18.9 - Pneumonia, unspecified organism Code(s): J18.9 - Pneumonia, unspecified organism Status: Acute Assessment and Plan: As above (4) Chronic obstructive pulmonary disease: Qualifiers: COPD type: unspecified COPD Qualified Code(s): J44.9 - Chronic obstructive pulmonary disease, unspecified Code(s): J44.9 - Chronic obstructive pulmonary disease, unspecified Status: Acute Assessment and Plan: Continue home Trelegy Ellipta and albuterol -continue oxygen for sats less than 90 (5) Person under investigation for COVID-19: Code(s): Z20.822 - Contact with and (suspected) exposure to COVID-19 Status: Acute Assessment and Plan: PCR positive (6) Mixed hyperlipidemia: Code(s): E78.2 - Mixed hyperlipidemia Status: Acute Assessment and Plan: Continue fenofibrate and simvastatin (7) Chronic depression: Code(s): F32.9 - Major depressive disorder, single episode, unspecified Status: Acute Assessment and Plan: Continue amitriptyline, Valium and sertraline (8) Chronic anxiety: Code(s): F41.9 - Anxiety disorder, unspecified Status: Acute Assessment and Plan: Continue home diazepam 10 mg b.i.d. p.r.n. -patient doing better with anxiety today (9) Essential (primary) hypertension: Code(s): I10 - Essential (primary) hypertension Status: Acute Assessment and Plan: Current blood pressure 105/52 -continue metoprolol -hold hydralazine, parameters set on amlodipine Subjective Date/time seen: 10/12/20 14:56 Interval history: Pt is a 65-year-old male here for COVID pneumonia. Patient was seen today and thinks he is getting better little by little every day. He said he is still coughing up brown sputum and feels short of breath every now and again but does okay at rest. He has no chest pain. He is still eating well. He has not had a bowel movement since Thursday. He has some congestion to his right nostril and that is causing him not to be able to use an nasal cannula according to him. Exam Narrative: General: Well developed well nourished patient in NAD HEENT: normocephalic Neck: supple Neuro: Alert and oriented x4 CV:RRR Resp: Crackles worse in the right lung. No wheezing. Venturi mask applied Abd: Soft, non distended. No pain to palpation. Positive bowel sounds Extremities: No swelling, erythema, or pain to palpation
[2020-10-12] MEDS: polyethylene glycoL 3350 17 GM POWD.PACK PO (15:15)
[2020-10-12] MEDS: FLUTICASONE PROPIONATE 0.05% NA SPR 16 GM BTL (*BKC) 1 SPRAY NASAL (21:00)
[2020-10-12] MEDS: AMITRIPTYLINE HCL 10 MG TABLET 20 MG PO (21:00)
[2020-10-12] MEDS: REMDESIVIR 100 MG/NS 250 ML 100 MG/250 ML BAG 250 MG IVPB (22:28)
[2020-10-12] MEDS: diazePAM (*CRX) 10 MG TABLET PO (22:28)
[2020-10-13] VITALS (14 sets, daily range): BP systolic 110–127; BP diastolic 60–71; PULSE 47–92; RESP 16–22; TEMP 36–37.3; O2SAT 90–99
[2020-10-13] MEDS: ALBUTEROL SULFATE (*SP) AEROSOL 1 PUFF 2 PUFF INHALATION ×7 (00:22→23:15)
[2020-10-13] MEDS: SIMVASTATIN 20 MG TABLET PO (08:43)
[2020-10-13] MEDS: allopurinoL 300 MG TABLET PO (08:43)
[2020-10-13] MEDS: SERTRALINE HCL 50 MG TABLET PO (08:43)
[2020-10-13] MEDS: amLODIPine BESYLATE 5 MG TABLET 10 MG PO (08:43)
[2020-10-13] MEDS: PANTOPRAZOLE 40 MG TABLET PO (08:43)
[2020-10-13] MEDS: FENOFIBRATE NANOCRYSTALLIZED 145 MG TABLET PO (08:43)
[2020-10-13] MEDS: PSYLLIUM POWDER PACKET 1 PACKET BY MOUTH (08:44)
[2020-10-13] MEDS: ENOXAPARIN 40 MG/0.4 ML SYRINGE SUB-Q (08:44)
[2020-10-13] MEDS: polyethylene glycoL 3350 17 GM POWD.PACK PO (08:45)
[2020-10-13] MEDS: FLUTICASONE/UMECLIDIN/VILANTER 100-62.5-25 MCG ELLIPTA 1 PUFF INHALATION (08:48)
[2020-10-13] MEDS: FLUTICASONE PROPIONATE 0.05% NA SPR 16 GM BTL (*BKC) 1 SPRAY NASAL ×2 (08:51→22:33)
[2020-10-13] MEDS: METOPROLOL SUCCINATE EXT REL 100 MG TABCR PO (10:55)
--- NOTE | 2020-10-13 11:31 | PM.IMPN ---
Progress Note: A&P Assessment and Plan (1) Acute and chronic respiratory failure with hypoxia: Code(s): J96.21 - Acute and chronic respiratory failure with hypoxia Status: Acute Assessment and Plan: Secondary to pneumonia due to COVID -continue oxygen supplementation for sat <90 -continue remdesivir, Decadron and antibiotics since he has a consolidation on his CT which is concerning for secondary bacterial pneumonia. Vancomycin was added 10/11/20 -sputum culture growing normal mario -I am cautioning use of Baricitinib due to consolidation on the CT possibly having a secondary bacterial infection. Spoke to the pt about benefits and risks and he would like to hold off on this time which I think is an appropriate choice. Will reassess daily -chest x-ray shows pneumonia, worse in the right lung. Repeat tomorrow a.m. -inflammatory labs and liver enzymes have improved -wean o2 as tolerated -pt vaccinated with [employer] earlier this year -continue PT and OT (2) Pneumonia due to COVID-19 virus: Code(s): U07.1 - COVID-19; J12.82 - Pneumonia due to coronavirus disease 2018 Status: Acute Assessment and Plan: As above (3) Pneumonia: Qualifiers: Laterality: bilateral Lung location: lower lobe of lung Pneumonia type: due to unspecified organism Qualified Code(s): J18.9 - Pneumonia, unspecified organism Code(s): J18.9 - Pneumonia, unspecified organism Status: Acute Assessment and Plan: As above (4) Chronic obstructive pulmonary disease: Qualifiers: COPD type: unspecified COPD Qualified Code(s): J44.9 - Chronic obstructive pulmonary disease, unspecified Code(s): J44.9 - Chronic obstructive pulmonary disease, unspecified Status: Acute Assessment and Plan: Continue home Trelegy Ellipta and albuterol -continue oxygen for sats less than 90 (5) Person under investigation for COVID-19: Code(s): Z20.822 - Contact with and (suspected) exposure to COVID-19 Status: Acute Assessment and Plan: PCR positive (6) Mixed hyperlipidemia: Code(s): E78.2 - Mixed hyperlipidemia Status: Acute Assessment and Plan: Continue fenofibrate and simvastatin (7) Chronic depression: Code(s): F32.9 - Major depressive disorder, single episode, unspecified Status: Acute Assessment and Plan: Continue amitriptyline, Valium and sertraline (8) Chronic anxiety: Code(s): F41.9 - Anxiety disorder, unspecified Status: Acute Assessment and Plan: Continue home diazepam 10 mg b.i.d. p.r.n. -patient doing better with less anxiety today (9) Essential (primary) hypertension: Code(s): I10 - Essential (primary) hypertension Status: Acute Assessment and Plan: Current blood pressure 122/71 -continue metoprolol -hold hydralazine, parameters set on amlodipine Subjective Date/time seen: 10/13/20 11:31 Interval history: Pt is a 65-year-old male here for COVID pneumonia. Patient was seen today during therapy and states he is feeling better every day. He is still coughing but is coughing less. Shortness of breath is improving. He has not moved around too much but plans to do so today. He is not sleeping very well but also states that he does not usually go to sleep until2- 4:00 a.m. at home. He has no chest pain. He is still eating well. He has not had a bowel movement still. Exam Narrative: General: Well developed well nourished patient in NAD HEENT: normocephalic Neck: supple Neuro: Alert and oriented x4 CV:RRR Resp: CTA today, improved. No wheezing. High-flow cannula Abd: Soft, non distended. No pain to palpation. Positive bowel sounds Extremities: No swelling, erythema, or pain to palpation. Objective Data Vital Signs Vital Signs: Vital Signs - 24 hr 10/12/20 12:00 10/12/20 12:49 10/12/20 16:00 Temperature 98.
[2020-10-13 11:54] LABS: Alanine Aminotransferase 34 U/L (4-50); Estimated CRCL calculation 64 ml/min; Estimated Glomerular Filt Rate > 60
[2020-10-13 12:03] LABS: INR 1.1; Prothrombin Time 14.3 Seconds (11.1-14.7)
[2020-10-13] MEDS: diazePAM (*CRX) 10 MG TABLET PO ×2 (14:26→22:33)
[2020-10-13 17:30] LABS: Vancomycin Trough 5.8 ug/mL (10.0-20.0)
[2020-10-13] MEDS: AMITRIPTYLINE HCL 10 MG TABLET 20 MG PO (21:10)
[2020-10-13] MEDS: REMDESIVIR 100 MG/NS 250 ML 100 MG/250 ML BAG 250 MG IVPB (22:32)
[2020-10-13] MEDS: CALCIUM CARBONATE (TUMS) 500 MG (200 MG ELEMENTAL) 400 MG PO (22:33)
[2020-10-13] MEDS: BISACODYL 5 MG TABLET EC PO (22:33)
[2020-10-14] VITALS (10 sets, daily range): BP systolic 120–136; BP diastolic 58–74; PULSE 50–74; RESP 16–22; TEMP 36.5–37.2; O2SAT 91–100
[2020-10-14 07:42] LABS: Alanine Aminotransferase 32 U/L (4-50); Albumin Level 3.5 g/dL (3.5-5.1); Alkaline Phosphatase 35 U/L (38-126); Anion Gap 6 mmol/L (8-16); Aspartate Amino Transferase 30 U/L (17-59); Bilirubin,Total 0.5 mg/dL (0.2-1.3); Blood Urea Nitrogen 23 mg/dL (9-20); Calcium 8.8 mg/dL (8.4-10.2); Carbon Dioxide 29 mmol/L (22-30); Chloride 103 mmol/L (98-107); Estimated CRCL calculation 54 ml/min; Estimated Glomerular Filt Rate > 60; Glucose 104 mg/dL (65-110); Potassium 3.8 mmol/L (3.4-5.0); Sodium 138 mmol/L (137-145)
[2020-10-14] MEDS: SERTRALINE HCL 50 MG TABLET PO (08:49)
[2020-10-14] MEDS: FENOFIBRATE NANOCRYSTALLIZED 145 MG TABLET PO (08:49)
[2020-10-14] MEDS: METOPROLOL SUCCINATE EXT REL 100 MG TABCR PO (08:49)
[2020-10-14] MEDS: amLODIPine BESYLATE 5 MG TABLET 10 MG PO (08:49)
[2020-10-14] MEDS: allopurinoL 300 MG TABLET PO (08:50)
[2020-10-14] MEDS: polyethylene glycoL 3350 17 GM POWD.PACK PO (08:50)
[2020-10-14] MEDS: PSYLLIUM POWDER PACKET 1 PACKET BY MOUTH (08:50)
[2020-10-14] MEDS: ENOXAPARIN 40 MG/0.4 ML SYRINGE SUB-Q (08:50)
[2020-10-14] MEDS: SIMVASTATIN 20 MG TABLET PO (08:50)
[2020-10-14] MEDS: PANTOPRAZOLE 40 MG TABLET PO (08:50)
[2020-10-14] MEDS: FLUTICASONE PROPIONATE 0.05% NA SPR 16 GM BTL (*BKC) 1 SPRAY NASAL ×2 (08:51→21:47)
[2020-10-14] MEDS: ALBUTEROL SULFATE (*SP) AEROSOL 1 PUFF 2 PUFF INHALATION ×4 (08:56→20:29)
[2020-10-14] MEDS: FLUTICASONE/UMECLIDIN/VILANTER 100-62.5-25 MCG ELLIPTA 1 PUFF INHALATION (08:56)
[2020-10-14] MEDS: CALCIUM CARBONATE (TUMS) 500 MG (200 MG ELEMENTAL) 400 MG PO (09:05)
--- NOTE | 2020-10-14 10:48 | PM.IMPN ---
Progress Note: A&P Assessment and Plan (1) Acute and chronic respiratory failure with hypoxia: Code(s): J96.21 - Acute and chronic respiratory failure with hypoxia Status: Acute Assessment and Plan: Secondary to pneumonia due to COVID -continue oxygen supplementation for sat <90 -continue remdesivir (will reorder for additional 5 days), Decadron and antibiotics since he has a consolidation on his CT which is concerning for secondary bacterial pneumonia. Vancomycin was added 10/11/20 -sputum culture growing normal mario -I am cautioning use of Baricitinib due to consolidation on the CT possibly having a secondary bacterial infection supported by CXR today. Spoke to the pt about benefits and risks and he would like to hold off on this time which I think is an appropriate choice. Will reassess daily -chest x-ray shows pneumonia, worse in the right lung but improving -inflammatory labs and liver enzymes have improved -wean o2 as tolerated -pt vaccinated with [employer] earlier this year -continue PT and OT (2) Pneumonia due to COVID-19 virus: Code(s): U07.1 - COVID-19; J12.82 - Pneumonia due to coronavirus disease 2018 Status: Acute Assessment and Plan: As above (3) Pneumonia: Qualifiers: Laterality: bilateral Lung location: lower lobe of lung Pneumonia type: due to unspecified organism Qualified Code(s): J18.9 - Pneumonia, unspecified organism Code(s): J18.9 - Pneumonia, unspecified organism Status: Acute Assessment and Plan: As above (4) Chronic obstructive pulmonary disease: Qualifiers: COPD type: unspecified COPD Qualified Code(s): J44.9 - Chronic obstructive pulmonary disease, unspecified Code(s): J44.9 - Chronic obstructive pulmonary disease, unspecified Status: Acute Assessment and Plan: Continue home Trelegy Ellipta and albuterol -continue oxygen for sats less than 90 (5) Person under investigation for COVID-19: Code(s): Z20.822 - Contact with and (suspected) exposure to COVID-19 Status: Acute Assessment and Plan: PCR positive (6) Mixed hyperlipidemia: Code(s): E78.2 - Mixed hyperlipidemia Status: Acute Assessment and Plan: Continue fenofibrate and simvastatin (7) Chronic depression: Code(s): F32.9 - Major depressive disorder, single episode, unspecified Status: Acute Assessment and Plan: Continue amitriptyline, Valium and sertraline (8) Chronic anxiety: Code(s): F41.9 - Anxiety disorder, unspecified Status: Acute Assessment and Plan: Continue home diazepam 10 mg b.i.d. p.r.n. -patient doing better with less anxiety today (9) Essential (primary) hypertension: Code(s): I10 - Essential (primary) hypertension Status: Acute Assessment and Plan: Current blood pressure 126/58 -continue metoprolol -hold hydralazine, parameters set on amlodipine (10) Constipated: Code(s): K59.00 - Constipation, unspecified Status: Acute Assessment and Plan: Continue miralax, PRN dulcolax (last dose 10/13/20), and will add milk of mag Subjective Date/time seen: 10/14/20 10:48 Interval history: Pt is a 65-year-old male here for COVID pneumonia. Patient was seen today and states he is doing better every day. Pt denies nausea, vomiting, fevers, chills, chest pain, or abdominal pain. His shortness of breath is improving. He still has not had a bowel movement. Exam Narrative: General: Well developed well nourished patient in NAD HEENT: normocephalic Neck: supple Neuro: Alert and oriented x4 CV:RRR Resp: CTA today, improved. No wheezing. High-flow cannula 15L Abd: Soft, non distended. No pain to palpation. Positive bowel sounds Extremities: No swelling, erythema, or pain to palpation. Objective Data Vital Signs Vital Signs: Vital Signs - 24 hr 10/13/
[2020-10-14 11:53] LABS: INR 1.1; Prothrombin Time 14.1 Seconds (11.1-14.7)
[2020-10-14] MEDS: MAGNESIUM HYDROXIDE SUSP 30 ML UDC PO (11:59)
[2020-10-14] MEDS: diazePAM (*CRX) 10 MG TABLET PO ×2 (17:45→22:54)
[2020-10-14] MEDS: AMITRIPTYLINE HCL 10 MG TABLET 20 MG PO (21:47)
[2020-10-14] MEDS: REMDESIVIR 100 MG/NS 250 ML 100 MG/250 ML BAG 250 MG IVPB (21:47)
[2020-10-15] VITALS (17 sets, daily range): BP systolic 107–131; BP diastolic 59–79; PULSE 57–74; RESP 16–20; TEMP 36.2–37.3; O2SAT 90–97
[2020-10-15] MEDS: ALBUTEROL SULFATE (*SP) AEROSOL 1 PUFF 2 PUFF INHALATION ×6 (00:18→20:35)
[2020-10-15] MEDS: FLUTICASONE/UMECLIDIN/VILANTER 100-62.5-25 MCG ELLIPTA 1 PUFF INHALATION (07:33)
[2020-10-15 08:03] LABS: Hematocrit 40.4 % (42.0-52.0); Hemoglobin 13.3 g/dL (14.0-18.0); Mean Corpuscular HGB Conc 32.9 g/dl (32-36); Mean Corpuscular Hemoglobin 29.2 pg (26-34); Mean Corpuscular Volume 88.8 fl (80-100); Mean Platelet Volume 10.8 fl (7.4-10.4); Platelet Count Result 312 k/mm3 (150-375); Red Blood Count 4.55 M/mm3 (4.6-6.20); Red Cell Distribution Width 13.6 % (11.5-14.5); White Blood Count 11.2 K/mm3 (4.5-10.0)
[2020-10-15 08:25] LABS: Alanine Aminotransferase 27 U/L (4-50); Albumin Level 3.3 g/dL (3.5-5.1); Alkaline Phosphatase 34 U/L (38-126); Anion Gap 5 mmol/L (8-16); Aspartate Amino Transferase 29 U/L (17-59); Bilirubin,Total 0.5 mg/dL (0.2-1.3); Blood Urea Nitrogen 19 mg/dL (9-20); CRP 2.1 mg/dL (<1.0); Calcium 8.6 mg/dL (8.4-10.2); Carbon Dioxide 28 mmol/L (22-30); Chloride 103 mmol/L (98-107); Estimated CRCL calculation 64 ml/min; Estimated Glomerular Filt Rate > 60; Glucose 131 mg/dL (65-110); Magnesium 2.3 mg/dL (1.6-2.3); Potassium 3.7 mmol/L (3.4-5.0); Sodium 136 mmol/L (137-145)
[2020-10-15 08:46] LABS: INR 1.1; Prothrombin Time 14.3 Seconds (11.1-14.7)
[2020-10-15 08:56] LABS: Total Protein 6.2 g/dL (6.3-8.2)
[2020-10-15] MEDS: PSYLLIUM POWDER PACKET 1 PACKET BY MOUTH (09:05)
[2020-10-15] MEDS: polyethylene glycoL 3350 17 GM POWD.PACK PO (09:05)
[2020-10-15] MEDS: amLODIPine BESYLATE 5 MG TABLET 10 MG PO (09:05)
[2020-10-15] MEDS: ENOXAPARIN 40 MG/0.4 ML SYRINGE SUB-Q (09:06)
[2020-10-15] MEDS: SIMVASTATIN 20 MG TABLET PO (09:06)
[2020-10-15] MEDS: allopurinoL 300 MG TABLET PO (09:06)
[2020-10-15] MEDS: METOPROLOL SUCCINATE EXT REL 100 MG TABCR PO (09:06)
[2020-10-15] MEDS: FLUTICASONE PROPIONATE 0.05% NA SPR 16 GM BTL (*BKC) 1 SPRAY NASAL ×2 (09:07→20:32)
[2020-10-15] MEDS: SERTRALINE HCL 50 MG TABLET PO (09:07)
[2020-10-15] MEDS: FENOFIBRATE NANOCRYSTALLIZED 145 MG TABLET PO (09:07)
[2020-10-15] MEDS: PANTOPRAZOLE 40 MG TABLET PO (09:07)
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
[2020-10-15] MEDS: MAGNESIUM CITRATE 300 ML BTL PO (13:10)
[2020-10-15] MEDS: CALCIUM CARBONATE (TUMS) 500 MG (200 MG ELEMENTAL) 400 MG PO (15:18)
[2020-10-15] MEDS: diazePAM (*CRX) 10 MG TABLET PO ×2 (15:18→20:31)
[2020-10-15] MEDS: REMDESIVIR 100 MG/NS 250 ML 100 MG/250 ML BAG 250 MG IVPB (20:31)
[2020-10-15] MEDS: AMITRIPTYLINE HCL 10 MG TABLET 20 MG PO (20:32)
[2020-10-16] VITALS (14 sets, daily range): BP systolic 106–142; BP diastolic 66–79; PULSE 52–95; RESP 16–20; TEMP 36.3–36.8; O2SAT 89–96
[2020-10-16 00:26] LABS: Vancomycin Trough 8.2 ug/mL (10.0-20.0)
--- NOTE | 2020-10-16 03:17 | PCRCNOTE ---
Window of time for administration has passed. See next scheduled administration.
[2020-10-16] MEDS: ALBUTEROL SULFATE (*SP) AEROSOL 1 PUFF 2 PUFF INHALATION ×5 (03:51→21:11)
[2020-10-16 06:16] LABS: Hematocrit 38.9 % (42.0-52.0); Hemoglobin 12.6 g/dL (14.0-18.0); Mean Corpuscular HGB Conc 32.4 g/dl (32-36); Mean Corpuscular Hemoglobin 28.8 pg (26-34); Mean Platelet Volume 10.8 fl (7.4-10.4); Platelet Count Result 337 k/mm3 (150-375); Red Blood Count 4.37 M/mm3 (4.6-6.20); Red Cell Distribution Width 13.5 % (11.5-14.5); White Blood Count 10.9 K/mm3 (4.5-10.0)
[2020-10-16 06:23] LABS: INR 1.1; Prothrombin Time 14.1 Seconds (11.1-14.7)
[2020-10-16 06:40] LABS: Alanine Aminotransferase 29 U/L (4-50); Albumin Level 3.3 g/dL (3.5-5.1); Alkaline Phosphatase 38 U/L (38-126); Anion Gap 6 mmol/L (8-16); Aspartate Amino Transferase 35 U/L (17-59); Bilirubin,Total 0.4 mg/dL (0.2-1.3); Blood Urea Nitrogen 19 mg/dL (9-20); Calcium 8.8 mg/dL (8.4-10.2); Carbon Dioxide 28 mmol/L (22-30); Chloride 103 mmol/L (98-107); Estimated CRCL calculation 70 ml/min; Estimated Glomerular Filt Rate > 60; Glucose 111 mg/dL (65-110); Potassium 4.1 mmol/L (3.4-5.0); Sodium 137 mmol/L (137-145)
[2020-10-16] MEDS: polyethylene glycoL 3350 17 GM POWD.PACK PO (08:25)
[2020-10-16] MEDS: ENOXAPARIN 40 MG/0.4 ML SYRINGE SUB-Q (08:26)
[2020-10-16] MEDS: SERTRALINE HCL 50 MG TABLET PO (08:26)
[2020-10-16] MEDS: amLODIPine BESYLATE 5 MG TABLET 10 MG PO (08:26)
[2020-10-16] MEDS: METOPROLOL SUCCINATE EXT REL 100 MG TABCR PO (08:26)
[2020-10-16] MEDS: PANTOPRAZOLE 40 MG TABLET PO (08:26)
[2020-10-16] MEDS: SIMVASTATIN 20 MG TABLET PO (08:26)
[2020-10-16] MEDS: FENOFIBRATE NANOCRYSTALLIZED 145 MG TABLET PO (08:26)
[2020-10-16] MEDS: PSYLLIUM POWDER PACKET 1 PACKET BY MOUTH (08:26)
[2020-10-16] MEDS: allopurinoL 300 MG TABLET PO (08:26)
[2020-10-16] MEDS: FLUTICASONE/UMECLIDIN/VILANTER 100-62.5-25 MCG ELLIPTA 1 PUFF INHALATION (09:24)
--- NOTE | 2020-10-16 15:12 | PM.IMPN ---
Progress Note: A&P Assessment and Plan (1) Acute and chronic respiratory failure with hypoxia: Code(s): J96.21 - Acute and chronic respiratory failure with hypoxia Status: Acute Assessment and Plan: Secondary to pneumonia due to COVID Wean oxygen supplementation for sat <90 continue remdesivir total 10 days, Decadron and antibiotics sputum culture growing normal mario repeat chest x-ray tomorrow inflammatory labs and liver enzymes have improved pt vaccinated with J&J earlier this year continue PT and OT (2) Pneumonia due to COVID-19 virus: Code(s): U07.1 - COVID-19; J12.82 - Pneumonia due to coronavirus disease 2019 Status: Acute Assessment and Plan: As above (3) Pneumonia: Qualifiers: Laterality: bilateral Lung location: lower lobe of lung Pneumonia type: due to unspecified organism Qualified Code(s): J18.9 - Pneumonia, unspecified organism Code(s): J18.9 - Pneumonia, unspecified organism Status: Acute Assessment and Plan: As above (4) Chronic obstructive pulmonary disease: Qualifiers: COPD type: unspecified COPD Qualified Code(s): J44.9 - Chronic obstructive pulmonary disease, unspecified Code(s): J44.9 - Chronic obstructive pulmonary disease, unspecified Status: Acute Assessment and Plan: Continue home Trelegy Ellipta and albuterol (5) Mixed hyperlipidemia: Code(s): E78.2 - Mixed hyperlipidemia Status: Acute Assessment and Plan: Continue fenofibrate and simvastatin (6) Chronic depression: Code(s): F32.9 - Major depressive disorder, single episode, unspecified Status: Acute Assessment and Plan: Continue amitriptyline, Valium and sertraline (7) Chronic anxiety: Code(s): F41.9 - Anxiety disorder, unspecified Status: Acute Assessment and Plan: Continue home diazepam 10 mg b.i.d. p.r.n. (8) Essential (primary) hypertension: Code(s): I10 - Essential (primary) hypertension Status: Acute Assessment and Plan: Current blood pressure 135/72 continue metoprolol hold hydralazine, parameters set on amlodipine (9) Constipated: Code(s): K59.00 - Constipation, unspecified Status: Acute Assessment and Plan: Continue miralax, PRN dulcolax (last dose 10/13/20), and will add Mag citrate today. Time Spent With Patient Time with patient: Greater than 35 minutes Subjective Date/time seen: 10/16/20 13:00 Interval history: Patient is a 65-year-old male who is here for COVID-19. Currently patient is sitting on the side the bed eating. He states that he feels better than he has since admission. He was also very excited that he got to eat and stated that he has not been able to eat in a few days. He also stated that his taste smell or back to normal. He stated that his cough is better and nearly non-existent. Patient denies chest pain, fevers, nausea, vomiting, diarrhea, constipation. Patient states that his shortness of breath is getting better as well and was able to be titrated to 1L maintaining saturation greater than 90%. Review of Systems Review of Systems: All systems reviewed & are unremarkable except as noted in HPI and below Exam Const: General: cooperative, healthy appearing, comfortable, no acute distress, well developed, alert, awake and Physically active Nutritional Appearance: average body habitus and well nourished Orientation/consciousness: oriented to person, oriented to place, oriented to time and patient oriented x3 HENMT: Head: normal to inspection Ears: hearing grossly normal bilaterally General nose exam: Normal external nose present Mouth: Yes Normal oral and palatal mucosa present, Yes lip normal and Yes tongue normal Teeth and gingiva: abnormal tooth and associated gingiva and poor dentition Eyes: General: appear
[2020-10-16] MEDS: CALCIUM CARBONATE (TUMS) 500 MG (200 MG ELEMENTAL) 400 MG PO (15:23)
[2020-10-16] MEDS: FLUTICASONE PROPIONATE 0.05% NA SPR 16 GM BTL (*BKC) 1 SPRAY NASAL (21:08)
[2020-10-16] MEDS: REMDESIVIR 100 MG/NS 250 ML 100 MG/250 ML BAG 250 MG IVPB (21:08)
[2020-10-16] MEDS: AMITRIPTYLINE HCL 10 MG TABLET 20 MG PO (21:08)
[2020-10-16] MEDS: ZOLPIDEM TARTRATE (*CRX) 5 MG TABLET 10 MG PO (21:33)
[2020-10-17] VITALS (11 sets, daily range): BP systolic 111–135; BP diastolic 50–77; PULSE 56–90; RESP 16–18; TEMP 36.4–37.3; O2SAT 90–94
[2020-10-17] MEDS: ALBUTEROL SULFATE (*SP) AEROSOL 1 PUFF 2 PUFF INHALATION ×5 (00:20→16:37)
[2020-10-17 06:45] LABS: Basophils Percent Auto 0.3 % (0.2-1.2); Eosinophils Percent Auto 0.3 % (0-4.4); Hematocrit 40.9 % (42.0-52.0); Hemoglobin 13.3 g/dL (14.0-18.0); Immature Granulocyte Absolute 0.39 K/mm3 (0.00-0.031); Immature Granulocyte Percent A 4.2 % (0-0.5); Lymphocytes Absolute Auto 0.62 K/mm3 (0.9-3.2); Lymphocytes Percent Auto 6.6 % (18.3-44.2); Mean Corpuscular HGB Conc 32.5 g/dl (32-36); Mean Corpuscular Hemoglobin 29.5 pg (26-34); Mean Corpuscular Volume 90.7 fl (80-100); Mean Platelet Volume 10.7 fl (7.4-10.4); Monocytes Absolute Auto 0.6 K/mm3 (0.1-0.6); Monocytes Percent Auto 6.8 % (2.6-8.5); Neutrophils Absolute Auto 7.7 K/mm3 (1.3-6.7); Neutrophils Percent Auto 81.8 % (45.5-73.1); Platelet Count Result 342 k/mm3 (150-375); Red Blood Count 4.51 M/mm3 (4.6-6.20); Red Cell Distribution Width 13.7 % (11.5-14.5); White Blood Count 9.4 K/mm3 (4.5-10.0)
[2020-10-17 07:07] LABS: INR 1.1; Prothrombin Time 13.7 Seconds (11.1-14.7)
[2020-10-17] MEDS: SIMVASTATIN 20 MG TABLET PO (08:32)
[2020-10-17] MEDS: amLODIPine BESYLATE 5 MG TABLET 10 MG PO (08:32)
[2020-10-17] MEDS: SERTRALINE HCL 50 MG TABLET PO (08:32)
[2020-10-17] MEDS: FENOFIBRATE NANOCRYSTALLIZED 145 MG TABLET PO (08:32)
[2020-10-17] MEDS: METOPROLOL SUCCINATE EXT REL 100 MG TABCR PO (08:32)
[2020-10-17] MEDS: PANTOPRAZOLE 40 MG TABLET PO (08:32)
[2020-10-17] MEDS: polyethylene glycoL 3350 17 GM POWD.PACK PO (08:33)
[2020-10-17] MEDS: ENOXAPARIN 40 MG/0.4 ML SYRINGE SUB-Q (08:33)
[2020-10-17] MEDS: allopurinoL 300 MG TABLET PO (08:33)
[2020-10-17] MEDS: PSYLLIUM POWDER PACKET 1 PACKET BY MOUTH (08:33)
[2020-10-17] MEDS: FLUTICASONE PROPIONATE 0.05% NA SPR 16 GM BTL (*BKC) 1 SPRAY NASAL (09:05)
--- NOTE | 2020-10-17 11:14 | PCNWS ---
Weekly nutritional screen. Patient is tolerating current diet with adequate intake. He is consuming on average 95% of meals. Mild weight loss reported due to lack of appetite when first coming down with COVID-19. Patient is expecting to discharge today, 10/17/2020, and is on the possible discharge list. No nutritional needs at this time.
[2020-10-17 12:32] LABS: Alanine Aminotransferase 29 U/L (4-50); Albumin Level 3.4 g/dL (3.5-5.1); Alkaline Phosphatase 38 U/L (38-126); Anion Gap 7 mmol/L (8-16); Aspartate Amino Transferase 26 U/L (17-59); Bilirubin,Total 0.5 mg/dL (0.2-1.3); Blood Urea Nitrogen 25 mg/dL (9-20); CRP 1.1 mg/dL (<1.0); Calcium 8.8 mg/dL (8.4-10.2); Carbon Dioxide 27 mmol/L (22-30); Chloride 102 mmol/L (98-107); Estimated CRCL calculation 64 ml/min; Estimated Glomerular Filt Rate > 60; Glucose 106 mg/dL (65-110); Lactate Dehydrogenase 507 U/L (313-618); Magnesium 2.4 mg/dL (1.6-2.3); Potassium 4.3 mmol/L (3.4-5.0); Sodium 136 mmol/L (137-145)
[2020-10-17 12:47] LABS: Vancomycin Trough 13.3 ug/mL (10.0-20.0)
--- NOTE | 2020-10-17 13:21 | PCRCNOTE ---
HOME O2 EVAL COMPLETE, NO REQUIREMENTS.
--- NOTE | 2020-10-17 15:05 | PM.DS ---
DS: Admitting Diagnosis Discharge Date Date of Service: 10/17/20 at 12:55pm Admitting Diagnosis COVID-19 pneumonia DS: Discharge Diagnosis Discharge Diagnosis (1) Acute and chronic respiratory failure with hypoxia: Code(s): J96.21 - Acute and chronic respiratory failure with hypoxia Status: Acute Assessment and Plan: Secondary to pneumonia due to COVID Wean oxygen supplementation for sat <90 continue remdesivir total 10 days, Decadron and antibiotics sputum culture growing normal mario repeat chest x-ray tomorrow inflammatory labs and liver enzymes have improved pt vaccinated with J&J earlier this year continue PT and OT (2) Pneumonia due to COVID-19 virus: Code(s): U07.1 - COVID-19; J12.82 - Pneumonia due to coronavirus disease 2018 Status: Acute Assessment and Plan: As above (3) Pneumonia: Qualifiers: Laterality: bilateral Lung location: lower lobe of lung Pneumonia type: due to unspecified organism Qualified Code(s): J18.9 - Pneumonia, unspecified organism Code(s): J18.9 - Pneumonia, unspecified organism Status: Acute Assessment and Plan: As above (4) Chronic obstructive pulmonary disease: Qualifiers: COPD type: unspecified COPD Qualified Code(s): J44.9 - Chronic obstructive pulmonary disease, unspecified Code(s): J44.9 - Chronic obstructive pulmonary disease, unspecified Status: Acute Assessment and Plan: Continue home Trelegy Ellipta and albuterol (5) Mixed hyperlipidemia: Code(s): E78.2 - Mixed hyperlipidemia Status: Acute Assessment and Plan: Continue fenofibrate and simvastatin (6) Chronic depression: Code(s): F32.9 - Major depressive disorder, single episode, unspecified Status: Acute Assessment and Plan: Continue amitriptyline, Valium and sertraline (7) Chronic anxiety: Code(s): F41.9 - Anxiety disorder, unspecified Status: Acute Assessment and Plan: Continue home diazepam 10 mg b.i.d. p.r.n. (8) Essential (primary) hypertension: Code(s): I10 - Essential (primary) hypertension Status: Acute Assessment and Plan: Current blood pressure 135/72 continue metoprolol hold hydralazine, parameters set on amlodipine (9) Constipated: Code(s): K59.00 - Constipation, unspecified Status: Acute Assessment and Plan: Continue miralax, PRN dulcolax (last dose 10/13/20), and will add Mag citrate today. DS: Summary Hospital Course Hospital Course: patient is a 65-year-old male with history of hypertension, prostate cancer, hyperlipidemia and anxiety who presented to the ED for complaints of shortness of breath. Chest x-ray showed the patient had airspace opacities in the right lung lower left lung consistent with pneumonia. Patient was found to have an elevated D-dimer and a CTA was performed which showed the patient had no pulmonary embolus diffuse lung disease consistent with pneumonia. Further chest x-ray showed lung disease consistent with COVID-19. Patient was then treated with IV remdesivir and Decadron for total of 9 days. Labs have remained stable white blood cell count was normal upon admission is normal upon discharge. Chemistry panel is also remained stable including all electrolytes was sodium of 136 and potassium of 4.3. BUN creatinine were also stable throughout admission 25 in 1 patient was also treated with oxygen and started off with a high oxygen demand of 15 L non-rebreather and 15 L Oxymizer. Oxygen has been titrated down and patient was able to be on room air. Patient seems to have a little bit of shortness of breath however says that he is doing fine is ready to go home. Respiratory walk test showed patient did not need home oxygen. Education was provided the patient patient verbalized understanding. Patient denies
[2020-10-17] MEDS: diazePAM (*CRX) 10 MG TABLET PO (15:42)
== END 2020-10-17 17:30 | disposition home or self-care (01) | DRG 177 ==
LOC: ANHED 20:59 → ANH3MEDSUR 10-10 07:23
PROVIDERS: Nurse Practitioner; Admitting Provider Internal Medicine; Emergency Provider Emergency Medicine; PCP Family Medicine; Visit Provider Physician Assistant
DX: U07.1 COVID-19 (principal); J96.21 Acute and chronic respiratory failure with hypoxia; J12.82 Pneumonia due to coronavirus disease 2019; J44.0 Chronic obstructive pulmonary disease with (acute) lower respiratory infection; J44.1 Chronic obstructive pulmonary disease with (acute) exacerbation; N17.9 Acute kidney failure, unspecified; E87.1 Hypo-osmolality and hyponatremia; C61 Malignant neoplasm of prostate; I10 Essential (primary) hypertension; E78.2 Mixed hyperlipidemia; F32.9 Major depressive disorder, single episode, unspecified; F41.9 Anxiety disorder, unspecified; K21.9 Gastro-esophageal reflux disease without esophagitis; K59.00 Constipation, unspecified; R74.8 Abnormal levels of other serum enzymes; G25.0 Essential tremor; G47.00 Insomnia, unspecified; Z87.891 Personal history of nicotine dependence; Z79.899 Other long term (current) drug therapy
CPT/HCPCS: 36415; 36600; 71045; 71275; 76705; 80048; 80053; 80076; 80202; 82375; 82565; 82728; 82805; 83050; 83605; 83615; 83735; 83880; 84460; 85025; 85027; 85380; 85610; 86140; 86738; 87040; 87070; 87205; 87449; 87899; 93005; 93970; 94618; 94640; 94667; 96365; 97162; 97165; 99291; A9270; C9803; J0456; J0696; J1100; J1650; J3370; J7030; Q9967; U0003; U0005

== ENCOUNTER → 2020-12-03 14:29 | Outpatient (CLI) | payer MEDICARE, SELFPAY ==
--- NOTE | ~2020-12-03 | XR_ITS ---
XR shoulder LT min 2V 12/03/2020 15:00 Indication: Left shoulder pain Procedure: 4 views left shoulder Comparison: No prior studies for comparison. Findings: Moderate glenohumeral joint osteoarthritis. There are degenerative changes of the acromiocl avicular joint. No fracture or traumatic malalignment. No significant soft tissue abnormality. 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 Reviewed, dictated and finalized at location A. 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
== END ==
PROVIDERS: PCP Family Medicine; Visit Provider Nurse Practitioner Family
DX: M25.512 Pain in left shoulder (principal); M19.012 Primary osteoarthritis, left shoulder
CPT/HCPCS: 73030

== ENCOUNTER 2021-10-21 00:21 | Day surgery (SDC) | payer MEDICARE, SELFPAY ==
[2021-10-09 12:47] VITALS: BMI 27.6
--- NOTE | 2021-10-21 07:06 | PM.HPGS ---
History of Present Illness History of Present Illness Consent: Risks, benefits, and alternatives have been discussed and questions answered. Patient agrees to proceed with procedure. Chief complaint: hx of colon polyps Narrative: Heladio Cantu is a 66 year old male referred for colon cancer screening. He has a history of polyps. He reportedly had a colonoscopy in 2016 with removal of polyps. He was seen at the colorectal surgery clinic at [facility] for fecal incontinence and colonoscopy was recommended at that time. Review of Systems Review of Systems: All systems reviewed & are unremarkable except as noted in HPI and below PMFSH Past Medical History Medical History Abnormal chest x-ray with multiple lung nodules (08/28/20) 12 mm nodule overlying the lower thoracic spine on lateral view of chest x-ray Acute and chronic respiratory failure with hypoxia Acute bronchitis Acute non-recurrent maxillary sinusitis Arthritis of left shoulder region BMI 28.0-28.9,adult BMI 29.0-29.9,adult Body mass index (bmi) 30.0-30.9, adult (09/21/18) Eczema (04/19/20) right thigh Encounter for prostate cancer screening GERD (gastroesophageal reflux disease) History of prostate cancer History of tobacco use in past year 1/2 of a pack daily for 3 years many years ago. Iron deficiency anemia, unspecified resolved with iron 100, 27% saturation, ferritin 319 with hemoglobin 15.4 on 02/12/2021 Left shoulder pain Mixed hyperlipidemia total cholesterol 206, triglycerides 115, HDL 61 and LDL 126 on 02/12/2021 with TSH 1.8 Overweight (BMI 25.0-29.9) Polyp of colon Radiation proctitis Shoulder arthritis Family History Family History Sibling Family history of schizophrenia, Onset Age: 65 Patient's brother is in good health Mother Patient's mother is , Onset Age: 81 Family history of cardiovascular disease Family history of chronic obstructive pulmonary disease Family history of emphysema Family history of renal failure Father Patient's father is , Onset Age: 42 Grandparent Acute myocardial infarction Cerebrovascular accident Family history of Alzheimer's disease Family history of lung cancer Social History Social History Smoking status: Former smoker Tobacco type: cigarettes Alcohol intake: current Drinks per week: 3 Alcohol use details: on the weekends Substance use: never Substance use type: does not use Living arrangements: alone Gender identity (if verbalized by the patient): Male Spiritual care concerns: No Meds Home Medications and Allergies Home Medications Medication Instructions Recorded Confirmed Type Fiber Therapy (psyllium) 1 cap PO DAILY 10/09/20 10/21/21 History cyclobenzaprine 10 mg tablet 10 mg PO TID PRN muscle spasm #30 11/30/20 10/21/21 Rx tabs meloxicam 15 mg tablet 15 mg PO DAILY PRN shoulder pain 02/12/21 10/21/21 Rx #30 tabs omeprazole 40 mg capsule,delayed 40 mg PO DAILY #90 caps 05/23/21 10/21/21 Rx release zolpidem 5 mg tablet (Ambien) 5 mg PO QHS PRN insomnia #30 tabs 07/29/21 10/21/21 Rx diazepam 10 mg tablet 10 mg PO BID PRN anxiety #14 tabs 08/06/21 10/21/21 Rx amitriptyline 10 mg tablet 20 mg PO . q.h.s. #180 tabs 08/08/21 10/21/21 Rx diazepam 10 mg tablet 10 mg PO BID PRN muscle spasm #180 08/13/21 10/21/21 Rx tabs sertraline 50 mg tablet 50 mg PO DAILY #90 tabs 08/13/21 10/21/21 Rx omeprazole 40 mg capsule,delayed 40 mg PO DAILY #14 caps 08/14/21 10/21/21 Rx release hydralazine 50 mg tablet 50 mg PO BID #180 tabs 09/05/21 10/21/21 Rx simvastatin 20 mg tablet 20 mg PO DAILY #90 tabs 09/05/21 10/21/21 Rx allopurinol 300 mg tablet 150 mg PO DAILY #90 tabs 10/08/21 10/21/21 Rx amlodipine 10 mg tablet 10 mg PO DAILY #90 tabs 10/08/21 10/21/21 Rx fenofibrate n
[2021-10-21 11:00] VITALS: BP 143/74; PULSE 82; RESP 16; TEMP 36.6; O2SAT 96; BMI 27.4
[2021-10-21] MEDS: LACTATED RINGERS 1,000 ML 150 ML IV CONT (11:12)
--- NOTE | 2021-10-21 11:24 | WPDANESEPPF ---
Anes - Initial Pre Proc Eval Procedure: Operation Date: 10/21/21 13:00 Proposed Procedures p Screening Colonoscopy - Wild Loya MD Date/Time: 10/21/21 11:24 Surgeon: Wild Loya MD Pre Op Diagnosis: hx of colon polyps Patient Data Age: 66 Gender: M Height: 1.73 m Weight: 82 kg Last Vital Signs Temp 36.6 C 10/21/21 11:00 Pulse 82 10/21/21 11:00 Resp 16 10/21/21 11:00 BP 143/74 H 10/21/21 11:00 Pulse Ox 96 10/21/21 11:00 O2 Del Method Room Air 10/21/21 11:00 Allergies Allergy/AdvReac Type Severity Reaction Status Date / Time No Known Allergies Allergy Verified 10/21/21 10:54 Home Medications Medication Instructions Recorded Confirmed Type Fiber Therapy (psyllium) 1 cap PO DAILY 10/09/20 10/21/21 History cyclobenzaprine 10 mg tablet 10 mg PO TID PRN muscle spasm #30 11/30/20 10/21/21 Rx tabs meloxicam 15 mg tablet 15 mg PO DAILY PRN shoulder pain 02/12/21 10/21/21 Rx #30 tabs omeprazole 40 mg capsule,delayed 40 mg PO DAILY #90 caps 05/23/21 10/21/21 Rx release zolpidem 5 mg tablet (Ambien) 5 mg PO QHS PRN insomnia #30 tabs 07/29/21 10/21/21 Rx diazepam 10 mg tablet 10 mg PO BID PRN anxiety #14 tabs 08/06/21 10/21/21 Rx amitriptyline 10 mg tablet 20 mg PO . q.h.s. #180 tabs 08/08/21 10/21/21 Rx diazepam 10 mg tablet 10 mg PO BID PRN muscle spasm #180 08/13/21 10/21/21 Rx tabs sertraline 50 mg tablet 50 mg PO DAILY #90 tabs 08/13/21 10/21/21 Rx omeprazole 40 mg capsule,delayed 40 mg PO DAILY #14 caps 08/14/21 10/21/21 Rx release hydralazine 50 mg tablet 50 mg PO BID #180 tabs 09/05/21 10/21/21 Rx simvastatin 20 mg tablet 20 mg PO DAILY #90 tabs 09/05/21 10/21/21 Rx allopurinol 300 mg tablet 150 mg PO DAILY #90 tabs 10/08/21 10/21/21 Rx amlodipine 10 mg tablet 10 mg PO DAILY #90 tabs 10/08/21 10/21/21 Rx fenofibrate nanocrystallized 145 145 mg PO DAILY #90 tabs 10/08/21 10/21/21 Rx mg tablet metoprolol succinate 100 mg 100 mg PO DAILY #90 tabs 10/08/21 10/21/21 Rx tablet,extended release 24 hr tadalafil 20 mg tablet (Cialis) 20 mg PO DAILY PRN Erectile 10/09/21 10/21/21 History Dysfunction Patient hx anesthesia problems: none Family hx anesthesia problems: none Results Review: All pre-operative results and documents have been reviewed as part of the pre-operative evaluation. [facility] Past Medical History Medical History (Updated 10/21/21 @ 07:07 by Wild Loya MD) Abnormal chest x-ray with multiple lung nodules (08/28/20) 12 mm nodule overlying the lower thoracic spine on lateral view of chest x-ray Acute and chronic respiratory failure with hypoxia Acute bronchitis Acute non-recurrent maxillary sinusitis Arthritis of left shoulder region BMI 28.0-28.9,adult BMI 29.0-29.9,adult Body mass index (bmi) 30.0-30.9, adult (09/21/18) Eczema (04/19/20) right thigh Encounter for prostate cancer screening GERD (gastroesophageal reflux disease) History of prostate cancer History of tobacco use in past year 1/2 of a pack daily for 3 years many years ago. Iron deficiency anemia, unspecified resolved with iron 100, 27% saturation, ferritin 319 with hemoglobin 15.4 on 02/12/2021 Left shoulder pain Mixed hyperlipidemia total cholesterol 206, triglycerides 115, HDL 61 and LDL 126 on 02/12/2021 with TSH 1.8 Overweight (BMI 25.0-29.9) Polyp of colon Radiation proctitis Shoulder arthritis Family History Family History Sibling Family history of schizophrenia, Onset Age: 65 Patient's brother is in good health Mother Patient's mother is , Onset Age: 81 Family history of cardiovascular disease Family history of chronic obstructive pulmonary disease Family history of emphysema Family history of renal failure Father Patient's father is , Onset Age: 42 Grandparent Acute myocardial infarction Cerebrovascular accident Family history of Alzheimer's disea
--- NOTE | 2021-10-21 12:38 | SUR.OPER ---
sigmoid colon polyp cold snared not retrieved per Dr. Loya
[2021-10-21 12:42] VITALS: BP 111/71; PULSE 72; RESP 16; O2SAT 93
[2021-10-21 12:52] VITALS: BP 113/89; PULSE 68; RESP 16; O2SAT 96
[2021-10-21 13:02] VITALS: BP 122/73; PULSE 67; RESP 16; O2SAT 96
== END 2021-10-21 13:24 | disposition home or self-care (01) ==
PROVIDERS: PCP Family Medicine; Visit Provider Internal Medicine Gastroenterology
PROC: 0DJD8ZZ Inspection of Lower Intestinal Tract, Via Natural or Artificial Opening Endoscopic (ICD-10-PCS; CPT 45378; principal; 2021-10-21 13:00)
DX: Z12.11 Encounter for screening for malignant neoplasm of colon (principal); D12.0 Benign neoplasm of cecum; D12.5 Benign neoplasm of sigmoid colon; K62.1 Rectal polyp; K64.8 Other hemorrhoids; K57.30 Diverticulosis of large intestine without perforation or abscess without bleeding; K21.9 Gastro-esophageal reflux disease without esophagitis; L30.9 Dermatitis, unspecified; Z85.46 Personal history of malignant neoplasm of prostate; E78.2 Mixed hyperlipidemia; K62.7 Radiation proctitis; J96.11 Chronic respiratory failure with hypoxia; Z87.891 Personal history of nicotine dependence
CPT/HCPCS: 45380; 45385; 88305; J2704; J7120

== ENCOUNTER 2022-09-10 13:07 | Outpatient (RCR) | payer MEDICARE, SELFPAY ==
--- NOTE | 2022-09-10 13:36 | OPREHPOC ---
Outpatient Therapy Plan of Care This is a Multidisciplinary Plan of Care that may contain components documented by all disciplines (PT, OT, and ST.)
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
== END 2022-09-11 08:42 | disposition home or self-care (01) ==
LOC: ANHPT 13:07
PROVIDERS: PCP Family Medicine; Visit Provider Family Medicine
DX: S22.040A Wedge compression fracture of fourth thoracic vertebra, initial encounter for closed fracture (principal); S06.9XAA Unspecified intracranial injury with loss of consciousness status unknown, initial encounter; S22.49XA Multiple fractures of ribs, unspecified side, initial encounter for closed fracture; M62.838 Other muscle spasm; M19.011 Primary osteoarthritis, right shoulder; M19.012 Primary osteoarthritis, left shoulder
CPT/HCPCS: 97110; 97161

== ENCOUNTER 2023-02-19 19:59 | Emergency (ER) | payer MEDICARE, SELFPAY ==
--- NOTE | ~2023-02-19 | XR_ITS ---
EXAMINATION: XR lumbar spine 2-3V DATE: 02/19/2023 20:38 INDICATION: Back pain post fall TECHNIQUE: Anteroposterior and lateral views of the lumbar spine, and cone-down lateral view of the l umbosacral junction were obtained. COMPARISON: None. FINDINGS: Alignment is normal. Age-indeterminate T12 compression fracture with 30% anterior vertebral body heig ht loss. No sharply angulated cortex or linear lucency or sclerosis to suggest acute fracture. Lumbar vertebral body heights are normal. Moderate disc height loss at T12-L1 and L5-S1 with mild disc heig ht loss at L2-L3 through L4-L5. There is multilevel mild lumbar facet osteoarthritis. Mild bilateral hip and sacroiliac osteoarthritis. Likely suture anchors projecting over the bilateral pubic bodies. IMPRESSION: 1. Age-indeterminate T12 compression fracture with 30% anterior vertebral body height loss. 2. Moderate lumbar spondylosis. Reviewed, dictated and finalized at location A. FENCE ERECTOR
--- NOTE | ~2023-02-19 | CT_ITS ---
EXAMINATION: CT thoracic spine wo con DATE: 02/19/2023 22:57 INDICATION: T12 compression fracture post fall TECHNIQUE: Computed tomography (CT) of the thoracic spine was performed without intravenous contrast. Automated exposure control and iterative reconstruction technique were employed. The dose-length pro duct was 1016.56 mGy-cm. COMPARISON: None FINDINGS: Alignment is normal. There are Schmorl's nodes involving the majority of the endplates from the infer ior endplate of T8 through the inferior endplate of T12. There is an acute appearing T12 compression fracture with one third anterior vertebral body height loss. There is an additional L1 burst fracture with horizontal fracture line underlying the superior endplate with 20% right anterior vertebral bod y height loss and with 3 mm retropulsion resulting in mild central canal stenosis. There is no centra l canal stenosis in the more cephalad thoracic spine. Moderate lower cervical spondylosis. Mild thora cic and upper lumbar spondylosis. There are multiple old healed left rib fractures along with a chron ic nonunited posterolateral left ninth rib fracture. Multiple calcified nodules in the right lower lo be consistent with old granulomatous disease. IMPRESSION: 1. Acute appearing T12 compression fracture and L1 burst fracture. Reviewed, dictated and finalized at location A. ES DESPATCH HAND
[2023-02-19 20:01] VITALS: BP 125/75; PULSE 94; RESP 14; TEMP 36.5; O2SAT 96
[2023-02-19] MEDS: HYDROmorphone HCL INJ (*CRX) 1 MG/ML SYR IM (22:40)
[2023-02-19 22:43] VITALS: BP 137/69; PULSE 84; RESP 20; TEMP 36.6; O2SAT 98
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
[2023-02-20] MEDS: HYDROcodone/acetaminophen (*CRX) 5-325 MG TABLET 2 TAB PO (00:08)
[2023-02-20 00:13] VITALS: BP 132/74; PULSE 82; RESP 18; O2SAT 95
== END 2023-02-20 00:14 | disposition home or self-care (01) ==
PROVIDERS: Emergency Provider Emergency Medicine; PCP Family Medicine
DX: S22.080A Wedge compression fracture of T11-T12 vertebra, initial encounter for closed fracture (principal); S32.011A Stable burst fracture of first lumbar vertebra, initial encounter for closed fracture; J96.11 Chronic respiratory failure with hypoxia; D50.9 Iron deficiency anemia, unspecified; E78.2 Mixed hyperlipidemia; E66.3 Overweight; M19.012 Primary osteoarthritis, left shoulder; M19.011 Primary osteoarthritis, right shoulder; K21.9 Gastro-esophageal reflux disease without esophagitis; Z85.46 Personal history of malignant neoplasm of prostate; Z86.010 Personal history of colon polyps; Z87.820 Personal history of traumatic brain injury; Z87.891 Personal history of nicotine dependence; M47.816 Spondylosis without myelopathy or radiculopathy, lumbar region; W01.190A Fall on same level from slipping, tripping and stumbling with subsequent striking against furniture, initial encounter
CPT/HCPCS: 72100; 72128; 96372; 99284; A9270; J1170

== ENCOUNTER 2023-04-14 15:06 | Outpatient (CLI) | payer MEDICARE, SELFPAY ==
--- NOTE | ~2023-04-14 | XR_ITS ---
EXAMINATION: XR thoracolumbar DATE: 04/14/2023 15:26 INDICATION: Stable burst fracture of T11-T12. TECHNIQUE: 2 views of thoracolumbar spine were obtained. COMPARISON: Lumbar spine radiographs 02/19/2023, thoracic spine CT 02/19/2023 FINDINGS: There is 7 degrees dextrocurvature of thoracolumbar spine. There is a compression fracture of T12 with 2/5 loss of height. There is a burst fracture of L1 with less than 1/5 loss of height. Th ere is mildly decreased disc height at T12-L1. There are endplate osteophytes at most levels. There i s multilevel mild facet joint osteoporosis. IMPRESSION: 1. Subacute T12 compression fracture and L1 burst fracture, stable from 02/19/2023. 2. Mild lumbar spondylosis. Reviewed, dictated and finalized at location E. S REPRESENTATIVE IMPRESSION: 1. Subacute T12 compression fracture and L1 burst fracture, stable from 02/19/19 24. 2. Mild lumbar spondylosis.
== END 2023-04-14 15:07 | disposition home or self-care (01) ==
PROVIDERS: PCP Family Medicine; Visit Provider Physician Assistant
DX: S22.081A Stable burst fracture of T11-T12 vertebra, initial encounter for closed fracture (principal); M43.06 Spondylolysis, lumbar region; X58.XXXA Exposure to other specified factors, initial encounter
CPT/HCPCS: 72080

== ENCOUNTER → 2023-08-18 17:00 | Outpatient (CLI) | payer MEDICARE, SELFPAY ==
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
--- NOTE | ~2023-08-18 | XR_ITS ---
EXAMINATION: XR shoulder RT min 2V DATE: 08/18/2023 18:16 INDICATION: Primary osteoarthritis, right shoulder. TECHNIQUE: 3 views of right shoulder were obtained. COMPARISON: Right shoulder radiographs 12/25/2021 FINDINGS: Bone alignment is normal. No fracture. There is severe osteoarthritis of glenohumeral joint and moderate osteoarthritis of acromioclavicular joint. IMPRESSION: 1. Polyarticular osteoarthritis. Reviewed, dictated and finalized at location E.
--- NOTE | ~2023-08-18 | XR_ITS ---
EXAMINATION: XR ribs LT 2V w CXR 2V DATE: 08/18/2023 18:16 INDICATION: Fractures of ribs, left side, initial encounter. TECHNIQUE: Frontal and lateral views of the chest and 2 views on 3 radiographs of the left ribs were obtained. COMPARISON: chest single view 10/16/20, spine radiographs 04/14/2023 FINDINGS: CHEST TWO VIEWS: There is no pneumonia, pleural effusion, or pneumothorax. The heart size is normal. LEFT RIBS: There are old fracture deformities of left 3rd-10th ribs. IMPRESSION: 1. Old left rib fractures. Reviewed, dictated and finalized at location E. IMPRESSION: 1. Old left rib fractures.
--- NOTE | ~2023-08-18 | XR_ITS ---
EXAMINATION: XR shoulder LT min 2V DATE: 08/18/2023 18:16 INDICATION: Primary osteoarthritis, left shoulder. TECHNIQUE: 3 views of left shoulder were obtained. COMPARISON: Left shoulder radiographs 12/25/2021 FINDINGS: Bone alignment is normal. No acute fracture. There are old healed left rib fractures. There is severe osteoarthritis of glenohumeral joint and acromioclavicular joint. IMPRESSION: 1. Polyarticular osteoarthritis. Reviewed, dictated and finalized at location E.
== END ==
LOC: EXPTRAD 17:03
PROVIDERS: PCP Family Medicine; Visit Provider Family Medicine
DX: M43.04 Spondylolysis, thoracic region (principal); M43.06 Spondylolysis, lumbar region; M19.012 Primary osteoarthritis, left shoulder; S22.42XA Multiple fractures of ribs, left side, initial encounter for closed fracture; X58.XXXA Exposure to other specified factors, initial encounter
CPT/HCPCS: 71046; 71100; 72080; 73030

== ENCOUNTER 2023-12-21 15:20 | Emergency (ER) | payer MEDICARE, SELFPAY ==
[2023-12-21] VITALS (7 sets, daily range): BP systolic 139–158; BP diastolic 77–89; PULSE 94–124; RESP 20–26; TEMP 36.8–37.7; O2SAT 93–97
--- NOTE | ~2023-12-21 | XR_ITS ---
EXAMINATION: XR chest 2V DATE: 12/21/2023 15:56 INDICATION: Shortness of breath. TECHNIQUE: Frontal and lateral views of the chest were obtained. COMPARISON: Chest 2 views 08/18/2023, thoracic spine CT 02/19/2023 FINDINGS: There are airspace opacities in left lower lung zone. No pleural effusion or pneumothorax. The heart size is normal. There are old healed left rib fractures. Again seen are chronic compression fractures in the spine. IMPRESSION: 1. Airspace opacities in left lower lung zone, consistent with atelectasis versus pneumonia. Reviewed, dictated and finalized at location A. NG WRITER IMPRESSION: 1. Airspace opacities in left lower lung zone, consistent with atelectasis vers us pneumonia.
--- NOTE | 2023-12-21 15:26 | ECG_ITS ---
Test Date: 2023-12-21 15:29:43 Measurements Intervals Melvin Rate: 106 P: 48 CT: 164 QRS: 41 QRSD: 93 T: 56 QT: 337 QTc: 448 Interpretive Statements SINUS TACHYCARDIA INCOMPLETE RIGHT BUNDLE BRANCH BLOCK NONSPECIFIC ST & T-WAVE ABNORMALITY- DIFFUSE LEADS BASELINE ARTIFACT- II, III, AVR, AVL, AVF ABNORMAL ECG No previous ECG available for comparison Electronically Signed On 12-21-2023 18:26:39 HYDRAULIC BULL RIVETER OPERATOR by Rohith Ramirez D.O.
[2023-12-21 15:55] LABS: Hematocrit 43.1 % (42.0-52.0); Hemoglobin 14.8 g/dL (14.0-18.0); Mean Corpuscular HGB Conc 34.3 g/dl (32-36); Mean Corpuscular Hemoglobin 30.3 pg (26-34); Mean Corpuscular Volume 88.3 fl (80-100); Mean Platelet Volume 10.7 fl (7.4-10.4); Platelet Count Result 193 k/mm3 (150-375); Red Blood Count 4.88 M/mm3 (4.6-6.20); Red Cell Distribution Width 13.8 % (11.5-14.5); White Blood Count 13.8 K/mm3 (4.5-10.0)
[2023-12-21 16:07] LABS: Alanine Aminotransferase 19 U/L (6-50); Albumin Level 4.6 g/dL (3.5-5.1); Alkaline Phosphatase 57 U/L (38-126); Anion Gap 12 mmol/L (4-12); Aspartate Amino Transferase 29 U/L (17-59); Bilirubin,Total 0.8 mg/dL (0.2-1.3); Blood Urea Nitrogen 8 mg/dL (9-20); CRP 2.5 mg/dL (<1.0); Calcium 9.4 mg/dL (8.4-10.2); Carbon Dioxide 24 mmol/L (22-30); Chloride 100 mmol/L (98-107); Estimated CRCL calculation 61 ml/min; Estimated Glomerular Filt Rate > 60; Glucose 103 mg/dL (65-110); INR 1.1; Partial Thromboplastin Time 26.1 Seconds (22.3-36.8); Potassium 3.6 mmol/L (3.4-5.0); Prothrombin Time 14.2 Seconds (11.1-14.7); Sodium 136 mmol/L (137-145)
[2023-12-21 16:17] LABS: Band Neutrophils Percent 5 % (0-6); Basophils Percent Manual 0 % (0-1); Eosinophils Absolute Manual 0.27 K/mm3 (0.02-0.50); Eosinophils Percent Manual 2 % (0-4); Lymphocytes Absolute Manual 0.96 K/mm3 (1.1-4.5); Lymphocytes Percent Manual 7 % (18-44); Monocytes Absolute Manual 0.82 K/mm3 (0.1-0.90); Monocytes Percent Manual 6 % (3-9); Neutrophils Absolute Manual 11.73 K/mm3 (1.3-6.7); Neutrophils Percent Manual 80 % (46-73); Total Cells Counted 100
[2023-12-21 16:18] LABS: Anisocytosis 1+; Platelet Estimate Adequate (Adequate); Schistocytes None Seen
[2023-12-21] MEDS: IPRATROPIUM 0.5 MG/ALBUTEROL SULFATE 2.5 MG AMPUL.NEB 3 ML INHALATION (16:19)
[2023-12-21] MEDS: SODIUM CHLORIDE 0.9% IV 1,000 ML 999 ML IV CONT (16:29)
[2023-12-21] MEDS: ACETAMINOPHEN 500 MG TABLET 1000 MG PO (16:29)
[2023-12-21] MEDS: AZITHROMYCIN 500 MG/NS 250 ML 500 MG/250 ML BAG 250 MG IVPB (16:29)
[2023-12-21 16:36] LABS: Lactic Acid Reflex 2.6 mmol/L (0.7-2.0)
[2023-12-21 16:49] LABS: Add Urine Microscopic? YES; Appearance Urine Clear (Clear); Bacteria Urine None Seen /hpf; Bilirubin Urine Negative (Negative); Blood Urine Negative (Negative); Color Urine Yellow (Yellow); Glucose Urine UA Negative (Negative); Ketones Urine Trace mg/dL (Negative); Leukocyte Esterase Ur Negative LEU/UL (Negative); Nitrate Urine Negative (Negative); Non Pathogenic Casts 0-2; Protein Urine Trace mg/dL (Negative); RBC Urine 0-2 /hpf (0-2); Specific Grav Ur 1.015 (1.001-1.035); Squamous Epithelial Cell Urine None Seen /hpf (Few); WBC Urine 0-5 /hpf (0-3); pH Urine 8.5 (5.0-9.0)
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
[2023-12-21 17:35] LABS: Influenza A QL RT-PCR Negative (Negative); Influenza B QL RT-PCR Negative (Negative); RSV RNA, RT-PCR Negative (Negative); SARS-CoV-2 RNA PCR Negative (Negative)
[2023-12-21 19:25] LABS: Reflex Lactic Acid Yes or No Add Lactic
== END 2023-12-21 18:28 | disposition home or self-care (01) ==
PROVIDERS: Emergency Medicine; Emergency Provider Emergency Medicine; PCP Family Medicine
DX: J18.9 Pneumonia, unspecified organism (principal); Z20.822 Contact with and (suspected) exposure to COVID-19; J96.11 Chronic respiratory failure with hypoxia; J44.9 Chronic obstructive pulmonary disease, unspecified; E78.2 Mixed hyperlipidemia; E66.3 Overweight; Z68.29 Body mass index [BMI] 29.0-29.9, adult; D50.9 Iron deficiency anemia, unspecified; N32.81 Overactive bladder; K21.9 Gastro-esophageal reflux disease without esophagitis; M19.012 Primary osteoarthritis, left shoulder; M19.011 Primary osteoarthritis, right shoulder; Z85.46 Personal history of malignant neoplasm of prostate; Z86.16 Personal history of COVID-19; Z87.01 Personal history of pneumonia (recurrent); Z87.820 Personal history of traumatic brain injury; Z87.891 Personal history of nicotine dependence; R00.0 Tachycardia, unspecified; I45.10 Unspecified right bundle-branch block; R94.31 Abnormal electrocardiogram [ECG] [EKG]
CPT/HCPCS: 36415; 71046; 80053; 81001; 83605; 85025; 85610; 85730; 86140; 87040; 87637; 93005; 96365; 96367; 99284; A9270; J0456; J0696; J7030

== ENCOUNTER 2024-04-05 16:35 | Emergency (ER) | payer MEDICARE, SELFPAY ==
--- NOTE | ~2024-04-05 | XR_ITS ---
EXAMINATION: XR chest 2V Exam Date/Time: 04/05/2024 17:35 SERVICE LEARNING COORDINATOR HISTORY: cough FLU LIKE SYMPTOMS Comparison: 12/21/2023. RESULT: Lines, tubes, and devices: None. Lungs and pleura: Patchy airspace opacities in the right upper and middle lobes. Cardiomediastinal silhouette: Stable. Other: No acute osseous or upper abdominal finding. Old healed left rib fractures. Possible nonunion of a left posterolateral ninth rib fracture. Compression fractures in the spine. IMPRESSION: Right lung opacities may represent right upper and middle lobe pneumonia in the appropriate clinical context. Reviewed, dictated and finalized at location K. ICE LEARNING COORDINATOR
[2024-04-05 17:01] VITALS: BP 131/101; PULSE 94; RESP 20; TEMP 37; O2SAT 96
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
--- NOTE | 2024-04-05 17:05 | ECG_ITS ---
Test Date: 2024-04-05 22:35:00 Measurements Intervals [place] Rate: 74 P: 59 PA: 199 QRS: 40 QRSD: 93 T: 46 QT: 377 QTc: 420 Interpretive Statements SINUS RHYTHM BASELINE ARTIFACT- II, III, AVR, AVL, AVF, V5-V6 NORMAL ECG Compared to ECG 12/21/2023 15:29:43 HEART RATE HAS DECREASED Electronically Signed On 04-06-2024 07:05:10 [employer] by Rohith Ramirez D.O.
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
--- OUTSIDE RECORDS SUMMARY | 2024-04-05 18:45 | XMS_ITS | Patient Health Summary ---
Author Organization [facility] Address [address] [place] [address] Care Team Providers Care Formation Testing Operator Name Role Phone Farhad Bridges MD Primary Care Provider [phone] Danya Aguirre Unavailable Note from [facility],non-owned Affiliates and Associated Physician Practices is amultiple site organization consisting of ambulatory clinics and hospital sitesin [place]. This disclosure is being madepursuant to the Care Everywhere program and may not contain all information available regarding this patient. Last updated 17.[facility] Allergies No known active allergies Medications * Be aware that medications may not be up to date on this document. Alwaysverify current medications with the patient. * omeprazole (PriLOSEC) 40 MG capsule Take 1 (one) capsule by mouth daily before breakfast * fenofibrate (Tricor) 145 MG tablet Take 1 (one) tablet by mouth once daily * amLODIPine (Norvasc) 10 MG tablet Take 1 (one) tablet by mouth once daily * hydrALAZINE (Apresoline) 50 MG tablet Take 1 (one) tablet by mouth 2 times daily * simvastatin (Zocor) 20 MG tablet Take 1 (one) tablet by mouth at bedtime * acetaminophen (Tylenol) 500 MG tablet(Started 08/23/2022) Take 2 (two) tablets by mouth every 6 hours Maximum allowable Acetaminophen amount = 4 Grams (4000 mg) / 24 hours. 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 (FLUZONE; FLULAVAL; FLUARIX; AFLURIA QUADRIVALENT; 6MO+), 0.5 ML (IIV4)(Given 11/29/2018) * iNFLUENZA VACCINE, RECOM-MAYA, QUADR. (FLUBLOCK QUADRIVALENT; 18Y+) (RIV4)(Given 02/15/2018) Social History Tobacco Use Types Packs/Day Years Used Date Smoking Tobacco: Former Cigarettes 0.5 2 2 011 - 2012 Smokeless Tobacco: Never Alcohol Use Standard [...] and heating? Not hard at all 08/08/2022 [facility] [place] [facility] Occupat ional [facility] - Occupational Stress [...] place to sleep or slept in a fdc (including now)? No 08/08/2022 Sex and Gender [...] Mass Index 29 08/08/2022 1:26 PM CDT Procedures * CARDIAC EKG ORDER(Performed 08/26/2022) * CBC W AUTO DIFFERENTIAL(Performed 08/22/2022) * CBC W AUTO DIFFERENTIAL(Performed 08/21/2022) * CBC W AUTO DIFFERENTIAL(Performed 08/20/2022) * CBC W AUTO DIFFERENTIAL(Performed 08/19/2022) * DIFFERENTIAL MANUAL(Performed 08/18/2022) * PHOSPHORUS BLOOD(Performed 08/18/2022) * MAGNESIUM BLOOD(Performed 08/18/2022) * CBC W AUTO DIFFERENTIAL(Performed 08/18/2022) * CALCIUM IONIZED WHOLE BLOOD(Performed 08/18/2022) * BASIC METABOLIC PANEL (CALCIUM TOTAL)(Performed 08/18/2022) * XR CHEST 1VW PORTABLE(Performed 08/17/2022) Performed for Respiratory distress * DIFFERENTIAL MANUAL(Performed 08/16/2022) * BLOOD GASES ART + COOX PANEL(Performed 08/16/2022) * CALCIUM IONIZED WHOLE BLOOD(Performed 08/16/2022) * PHOSPHORUS BLOOD(Performed 08/16/2022) * MAGNESIUM BLOOD(Performed 08/16/2022) * CBC W AUTO DIFFERENTIAL(Performed 08/16/2022) * BASIC METABOLIC PANEL (CALCIUM TOTAL)(Performed 08/16/2022) * XR ABDOMEN KUB PORTABLE(Performed 08/16/2022) Performed for Trauma * XR CHEST 1VW PORTABLE(Performed 08/16/2022) Performed for Closed fracture of multiple ribs of left side, initial encounter * DIFFERENTIAL MANUAL(Performed 08/16/2022) * BLOOD GASES ART + COOX PANEL(Performed 08/16/2022) * CALCIUM IONIZED WHOLE BLOOD(Performed 08/16/2022) * PHOSPHORUS BLOOD(Performed 08/16/2022) * MAGNESIUM BLOOD(Performed 08/16/2022) * CBC W AUTO DIFFERENTIAL(Performed 08/16/2022) * BASIC METABOLIC PANEL (CALCIUM TOTAL)(Performed 08/16/2022) * XR CHEST 1VW PORTABLE(Performed 08/15/2022) Performed for Closed fracture of multiple ribs of left side, initial encounter * DIFFERENTIAL MANUAL(Performed 08/14/2022) * BLOOD GASES ART + COOX PANEL(Performed 08/14/2022) * CALCIUM IONIZED WHOLE BLOOD(Performed 08/14/2022) * PHOSPHORUS BLOOD(Performed 08/14/2022) * MAGNESIUM BLOOD(Performed 08/14/2022) * CBC W AUTO DIFFERENTIAL(Performed 08/14/2022) * BASIC METABOLIC PANEL (CALCIUM TOTAL)(Performed 08/14/2022) * BLOOD GASES ART + COOX PANEL(Performed 08/14/2022) * XR CHEST 1VW PORTABLE(Performed 08/14/2022) Performed for Closed fracture of multiple ribs of left side, initial encounter * BLOOD GASES ART + COOX PANEL(Performed 08/14/2022) * CALCIUM IONIZED WHOLE BLOOD(Performed 08/14/2022) * PHOSPHORUS BLOOD(Performed 08/14/2022) * MAGNESIUM BLOOD(Performed 08/14/2022) * CBC W AUTO DIFFERENTIAL(Performed 08/14/2022) * BASIC METABOLIC PANEL (CALCIUM TOTAL)(Performed 08/14/2022) * CBC W/O DIFFERENTIAL(Performed 08/13/2022) * CK BLOOD(Performed 08/13/2022) * XR CHEST 1VW PORTABLE(Performed 08/13/2022) Performed for Closed fracture of multiple ribs of left side, initial encounter * BLOOD GASES ART + COOX PANEL(Performed 08/13/2022) * CK BLOOD(Performed 08/13/2022) * CALCIUM IONIZED WHOLE BLOOD(Performed 08/13/2022) * PHOSPHORUS BLOOD(Performed 08/13/2022) * MAGNESIUM BLOOD(Performed 08/13/2022) * CBC W AUTO DIFFERENTIAL(Performed 08/13/2022) * BASIC METABOLIC PANEL (CALCIUM TOTAL)(Performed 08/13/2022) * EEG VIDEO MONITORING(Performed 08/12/2022) * BASIC METABOLIC PANEL (CALCIUM TOTAL)(Performed 08/12/2022) * CK BLOOD(Performed 08/12/2022) * BLOOD GASES ART + COOX PANEL(Performed 08/12/2022) * BASIC METABOLIC PANEL (CALCIUM TOTAL)(Performed 08/12/2022) * MAGNESIUM BLOOD(Performed 08/12/2022) * PHOSPHORUS BLOOD(Performed 08/12/2022) * CULTURE SPUTUM+GRAM STAIN(Performed 08/12/2022) * MRSA DNA PCR(Performed 08/12/2022) * CK BLOOD(Performed 08/12/2022) * URINALYSIS W/MICROSCOPIC NO CULTURE(Performed 08/12/2022) * CULTURE BLOOD(Performed 08/12/2022) * CULTURE BLOOD(Performed 08/12/2022) * XR CHEST 1VW PORTABLE(Performed 08/12/2022) Performed for Closed fracture of multiple ribs of left side, initial encounter * BLOOD GASES ART + COOX PANEL(Performed 08/12/2022) * CALCIUM IONIZED WHOLE BLOOD(Performed 08/12/2022) * PHOSPHORUS BLOOD(Performed 08/12/2022) * MAGNESIUM BLOOD(Performed 08/12/2022) * CBC W AUTO DIFFERENTIAL(Performed 08/12/2022) * BASIC METABOLIC PANEL (CALCIUM TOTAL)(Performed 08/12/2022) * XR ABDOMEN KUB PORTABLE(Performed 08/12/2022) Performed for Trauma, Respiratory distress * XR CHEST 1VW PORTABLE(Performed 08/11/2022) Performed for Respiratory distress * BLOOD GASES ART + COOX PANEL(Performed 08/11/2022) * BLOOD GASES ART + COOX PANEL(Performed 08/11/2022) * XR CHEST 1VW PORTABLE(Performed 08/11/2022) Performed for Closed fracture of multiple ribs of left side, initial encounter * CALCIUM IONIZED WHOLE BLOOD(Performed 08/10/2022) * PHOSPHORUS BLOOD(Performed 08/10/2022) * MAGNESIUM BLOOD(Performed 08/10/2022) * CBC W AUTO DIFFERENTIAL(Performed 08/10/2022) * BASIC METABOLIC PANEL (CALCIUM TOTAL)(Performed 08/10/2022) * XR CHEST 1VW PORTABLE(Performed 08/10/2022) Performed for Closed fracture of multiple ribs of left side, initial encounter * BLOOD GASES ART + COOX PANEL(Performed 08/10/2022) * BLOOD GASES ART + COOX PANEL(Performed 08/10/2022) * CALCIUM IONIZED WHOLE BLOOD(Performed 08/10/2022) * PHOSPHORUS BLOOD(Performed 08/10/2022) * MAGNESIUM BLOOD(Performed 08/10/2022) * CBC W AUTO DIFFERENTIAL(Performed 08/10/2022) * BASIC METABOLIC PANEL (CALCIUM TOTAL)(Performed 08/10/2022) * BLOOD GASES ART + COOX PANEL(Performed 08/09/2022) * XR CHEST 1VW PORTABLE(Performed 08/09/2022) Performed for Closed fracture of multiple ribs of left side, initial encounter * BLOOD GASES ART + COOX PANEL(Performed 08/09/2022) * EKG 12-LEAD(Performed 08/09/2022) Performed for Trauma * XR CHEST 1VW PORTABLE(Performed 08/09/2022) Performed for Trauma * CALCIUM IONIZED WHOLE BLOOD(Performed 08/08/2022) * PHOSPHORUS BLOOD(Performed 08/08/2022) * MAGNESIUM BLOOD(Performed 08/08/2022) * CBC W AUTO DIFFERENTIAL(Performed 08/08/2022) * BASIC METABOLIC PANEL (CALCIUM TOTAL)(Performed 08/08/2022) * PT EVAL AND TREAT(Performed 08/08/2022) * OT EVAL AND TREAT(Performed 08/08/2022) * XR KNEE LEFT 2VW OR LESS(Performed 08/08/2022) Performed for Trauma * XR PELVIS 1 OR 2VW(Performed 08/08/2022) Performed for Trauma * BLOOD TYPE VERIFICATION(Performed 08/08/2022) * CT CHEST ABDOMEN PELVIS W CONT(Performed 08/08/2022) Performed for Trauma * CT LUMBAR SPINE WO CONTRAST(Performed 08/08/2022) Performed for Trauma * CT THORACIC SPINE WO CONTRAST(Performed 08/08/2022) Performed for Trauma * CT FACIAL BONES WO CONTRAST(Performed 08/08/2022) Performed for Trauma * CT CERVICAL SPINE WO CONTRAST(Performed 08/08/2022) Performed for Trauma * CT HEAD WO CONTRAST(Performed 08/08/2022) Performed for Trauma * XR CHEST 1VW PORTABLE(Performed 08/08/2022) Performed for Trauma * TYPE + SCREEN PANEL(Performed 08/08/2022) * PT-INR [facility](Performed 08/08/2022) * HEPATIC FUNCTION PANEL(Performed 08/08/2022) * LIPASE BLOOD(Performed 08/08/2022) * BASIC METABOLIC PANEL (CALCIUM TOTAL)(Performed 08/08/2022) * PTT [facility](Performed 08/08/2022) * CBC W AUTO DIFFERENTIAL(Performed 08/08/2022) * ALCOHOL ETHYL BLOOD(Performed 08/08/2022) * AMYLASE BLOOD(Performed 08/08/2022) * OXYGEN(Performed 08/08/2022) Results * CARDIAC EKG ORDER (08/26/2022 2:40 PM CDT) Narrative 08/26/2022 2:40 PM CDT Ordered by an unspecified provider. Scanned Document CARDIAC SERVICES ORD ERABLES * (ABNORMAL) CBC W AUTO DIFFERENTIAL (08/22/2022 2:47 AM CDT) Only the most recent of15 resultswithin the time period is included. WBC 6.8 3.5 - 10.5 10 3/uL 08/22/2022 3:29 AM [facility] RBC 3.84(L) 4.30 - 5.70 10 6/uL 08/22/2022 3:29 AM [facility] Hemoglobin 11.0(L) 12.0 - 17.6 g/dL 08/22/2022 3:29 AM [facility] Hematocrit 34.8(L) 35.2 - 51.7 % 08/22/2022 3:29 AM [facility] MCV 90.6 80.7 - 98.3 fL 08/22/2022 3:29 AM [facility] MCH 28.6 26.7 - 34.0 pg 08/22/2022 3:29 AM [facility] MCHC 31.6 30.8 - 35.9 g/dL 08/22/2022 3:29 AM [facility] RDW-SD 49.1 36.0 - 50.0 fL 08/22/2022 3:29 AM [facility] RDW-CV 15.1(H) 11.2 - 14.8 % 08/22/2022 3:29 AM [facility] Platelet Count 448(H) 150 - 400 10 3/uL 08/22/2022 3:29 AM [facility] MPV 10.5 9.4 - 12.9 fL 08/22/2022 3:29 AM [facility] nRBC Absolute 0.00 0 10 3/uL 08/22/2022 3:29 AM [facility] nRBC Auto 0.0 0 /100 WBC 08/22/2022 3:29 AM [facility] Neutrophils % 55.2 35.0 - 70.0 % 08/22/2022 3:29 AM [facility] Lymphocytes % 26.6 20.0 - 43.0 % 08/22/2022 3:29 AM [facility] Monocytes % 8.8 5.0 - 13.0 % 08/22/2022 3:29 AM [facility] Eosinophils % 5.7 0.0 - 6.0 % 08/22/2022 3:29 AM [facility] Basophil % 1.2 0.0 - 2.0 % 08/22/2022 3:29 AM [facility] Neutrophils Absolute 3.76 1.60 - 7.00 10 3/uL 08/22/2022 3:29 AM [facility] Lymphocyte Absolute 1.81 1.10 - 3.90 10 3/uL 08/22/2022 3:29 AM [facility] Monocytes Absolute 0.60 0.26 - 1.07 10 3/uL 08/22/2022 3:29 AM [facility] Eosinophils Absolute 0.39 0.00 - 0.47 10 3/uL 08/22/2022 3:29 AM [facility] Basophils Absolute 0.08 0.00 - 0.08 10 3/uL 08/22/2022 3:29 AM [facility] Immature Granulocytes % 2.5(H) 0.0 - 1.0 % 08/22/2022 3:29 AM [facility] Immature Granulocytes Absolute 0.17 08/22/2022 3:29 AM [facility] Blood BLOOD SPECIMEN / Unknown Lab Venipuncture / Unknown 08/22/2022 2:47 AM CDT 08/22/2022 3:18 AM CDT Lalit Galicia MD LAB - HEMATOLOGY ORD ERABLES [facility] [address] [place] [address], [facility] [phone] * CALCIUM IONIZED WHOLE BLOOD (08/18/2022 2:57 AM CDT) Only the most recent of10 resultswithin the time period is included. [facility] Calcium Ionized 1.19 mmol/L 08/18/2022 3:21 AM [facility] pH 7.43 7.35 - 7.45 pH 08/18/2022 3:21 AM [facility] Ionized Calcium pH Adjusted 1.20 1.19 - 1.34 mmol/L 08/18/2022 3:21 AM [facility] Blood BLOOD SPECIMEN / Unknown Lab Venipuncture / Unknown 08/18/2022 2:57 AM CDT 08/18/2022 3:15 AM CDT Lalit Galicia MD LAB - CHEMISTRY [facility] Organization Address City/State/ZIP Co de Phone Number [facility] [address] [place] [address], [facility] [phone] * (ABNORMAL) DIFFERENTIAL MANUAL (08/18/2022 2:57 AM CDT) Only the most recent of4 resultswithin the time period is included. [facility] WBC (corrected for NRBC) 8.1 10 3/uL 08/18/2022 6:35 AM [facility] Total Cell Count 100 08/18/2022 6:35 AM [facility] Neutrophils Absolute Manual 6.89 1.60 - 7.00 10 3/uL 08/18/2022 6:35 AM [facility] Comment:(BANDS+SEGS) x WBC = NEUT # (ANC) Lymphocyte Absolute Manual 0.81(L) 1.10 - 3.90 10 3/uL 08/18/2022 6:35 AM [facility] Monocytes Absolute Manual 0.24(L) 0.26 - 1.07 10 3/uL 08/18/2022 6:35 AM [facility] Eosinophils Absolute Manual 0.16 0.00 - 0.47 10 3/uL 08/18/2022 6:35 AM [facility] Neutrophil % Manual 85(H) 35 - 70 % 08/18/2022 6:35 AM [facility] Lymphocyte % Manual 10(L) 20 - 43 % 08/18/2022 6:35 AM [facility] Monocytes % Manual 3(L) 5 - 13 % 08/18/2022 6:35 AM [facility] Eosinophils % Manual 2 0 - 6 % 08/18/2022 6:35 AM [facility] Platelet Estimate Adequate Adequate 08/18/2022 6:35 AM [facility] RBC Morphology Normal 08/18/2022 6:35 AM [facility] Blood BLOOD SPECIMEN / Unknown Lab Venipuncture / Unknown 08/18/2022 2:57 AM CDT 08/18/2022 3:19 AM CDT Lalit Galicia MD LAB - HEMATOLOGY ORD ERABLES [facility] [address] [place] [address], [facility] [phone] * (ABNORMAL) BASIC METABOLIC PANEL (CALCIUM TOTAL) (08/18/2022 2:57 AM CDT) Only the most recent of13 resultswithin the time period is included. BUN 17 7 - 26 mg/dL 08/18/2022 3:50 AM [facility] Creatinine 0.89 0.71 - 1.16 mg/dL 08/18/2022 3:50 AM [facility] Sodium 146(H) 136 - 145 mmol/L 08/18/2022 3:50 AM [facility] Potassium 3.5 3.5 - 4.5 mmol/L 08/18/2022 3:50 AM [facility] Chloride 104 98 - 107 mmol/L 08/18/2022 3:50 AM [facility] CO2 29 22 - 29 mmol/L 08/18/2022 3:50 AM [facility] Glucose 110 70 - 115 mg/dL 08/18/2022 3:50 AM [facility] Calcium 9.1 8.4 - 10.2 mg/dL 08/18/2022 3:50 AM [facility] Anion Gap 17 8 - 18 08/18/2022 3:50 AM [facility] BUN/Creatinine Ratio 19 7 - 23 08/18/2022 3:50 AM CDT [facility] Osmolality Calculated 304(H) 270 - 300 mOsm/kg 08/18/2022 3:50 AM CDT [facility] eGFR by CKD-EPI >90 >=90 mL/min/1.7 3 m2 08/18/2022 3:50 AM CDT [facility] Blood BLOOD SPECIMEN / Unknown Lab Venipuncture / Unknown 08/18/2022 2:57 AM CDT 08/18/2022 3:19 AM CDT Lalit Galicia MD LAB - CHEMISTRY [facility] [address] [place] [address], [facility] [phone] * PHOSPHORUS BLOOD (08/18/2022 2:57 AM CDT) Only the most recent of11 resultswithin the time period is included. Phosphorus 2.9 2.8 - 5.1 mg/dL 08/18/2022 3:50 AM CDT [facility] Blood BLOOD SPECIMEN / Unknown Lab Venipuncture / Unknown 08/18/2022 2:57 AM CDT 08/18/2022 3:19 AM CDT Lalit Galicia MD LAB - CHEMISTRY [facility] [address] [place] [id number], [place] [phone] * MAGNESIUM BLOOD (08/18/2022 2:57 AM CDT) Only the most recent of11 resultswithin the time period is included. Magnesium 2.1 1.6 - 2.6 mg/dL 08/18/2022 3:50 AM CDT [facility] Blood BLOOD SPECIMEN / Unknown Lab Venipuncture / Unknown 08/18/2022 2:57 AM CDT 08/18/2022 3:19 AM CDT Lalit Galicia MD LAB - CHEMISTRY [facility] Organization Address City/State/ZIP Co de Phone Number [facility] [place] [address], [facility] [phone] * XR CHEST 1VW PORTABLE (08/17/2022 8:10 AM CDT) Only the most recent of12 resultswithin the time period is included. Anatomical Region Laterality Modality Chest Radiographic Sabina ging 08/17/2022 8:19 AM CDT Narrative 08/17/2022 7:53 PM CDT PROCEDURE: XR CHEST 1VW PORTABLE, DATE/TIME OF EXAM: 08/17/2022 8:10 AM, LOCATION [facility] INDICATION: R06.03: Respiratory distress ADDITIONAL CLINICAL INFORMATION: Ordering Provider Reason For Exam: ards COMPARISON: Multiple prior studies most recently chest radiograph dated 08/16/2022 at 4:21 AM. FINDINGS/IMPRESSION: *Previously seen endotracheal and NG/OG tubes have been removed. *Interval placement of feeding tube which courses midline and below the diaphragm terminating in the gastric body. Decreased aeration of the bilateral lungs compared to prior exam with associated bronchovascular crowding and probable pulmonary congestion. Persistent patchy airspace opacities within the right upper lung and left midlung zone. Probable small left pleural effusion. No right-sided pleural effusion. No pneumothorax. Superior mediastinal contours and cardiac silhouette are within normal limits. Multiple bilateral rib fractures are again seen. Report dictated by Shan English MD, (professor of radiology). IJustin have personally reviewed and interpreted this examination/study. > Interpreting Provider: Justin Cintron on 08/17/2022 7:53 PM Procedure Note Justin Cintron MD - 08/17/2022 PROCEDURE: XR CHEST 1VW PORTABLE, DATE/TIME OF EXAM: 08/17/2022 8:10 AM, LOCATION [facility] INDICATION: R06.03: Respiratory distress ADDITIONAL CLINICAL INFORMATION: Ordering Provider Reason For Exam: ards COMPARISON: Multiple prior studies most recently chest radiograph dated 08/16/2022 at 4:21 AM. FINDINGS/IMPRESSION: *Previously seen endotracheal and NG/OG tubes have been removed. *Interval placement of feeding tube which courses midline and below the diaphragm terminating in the gastric body. Decreased aeration of the bilateral lungs compared to prior exam with associated bronchovascular crowding and probable pulmonary congestion. Persistent patchy airspace opacities within the right upper lung andleft midlung zone. Probable small left pleural effusion. No right-sidedpleural effusion. No pneumothorax. Superior mediastinal contours and cardiac silhouette are within normal limits. Multiple bilateral rib fracturesare again seen. Report dictated by Shan English MD, (professor of radiology). I, Justin Cintron have personally reviewed and interpreted this examination/study. > Interpreting Provider: Justin Cintron on 08/17/2022 7:53 PM Lalit Galicia MD DIAGNOSTIC IMAGING O RDERABLES * (ABNORMAL) BLOOD GASES ART + COOX PANEL (08/16/2022 11:31 PM CDT) Only the most recent of14 resultswithin the time period is included. pH Arterial 7.46(H) 7.35 - 7.45 pH 08/16/2022 11:51 PM [facility] pO2 Arterial 77(L) 80 - 100 mmHg 08/16/2022 11:51 PM [facility] pCO2 Arterial 35 35 - 45 mmHg 11:51 PM [facility] HCO3 Arterial 24.9 20.0 - 30.0 mmol/L 08/16/2022 11:51 PM [facility] BE Arterial 1.3 -2.0 - 2.0 mmol/L 08/16/2022 11:51 PM [facility] Oxyhemoglobin Arterial 94.7 % 08/16/2022 11:51 PM [facility] Dexoyhemoglobin (HHB) % 2.0 % 08/16/2022 11:51 PM [facility] Methemoglobin 1.2 0.0 - 2.0 % 08/16/2022 11:51 PM [facility] Carboxyhemoglobin 2.1(H) 0.0 - 2.0 % 2022 11:51 PM [facility] O2 Content Arterial 15.1 Interpret within clinical context ml/dL 08/16/2022 11:51 PM CDT [facility] Hemoglobin by COOX 11.3(L) 12.0 - 17.6 g/dL 08/16/2022 11:51 PM CDT [facility] O2 Saturation Arterial 98 90 - 100 % 08/16/2022 11:51 PM CDT [facility] FI O2 Arterial 70.0 % 08/16/2022 11:51 PM CDT [facility] Comment:40L Blood, arterial ARTERIAL BLOOD SPECIMEN / Unknown Arterial Puncture / Unknown 08/16/2022 11:31 PM CDT 08/16/2022 11:47 PM CDT Narrative [facility] - 08/16/2022 11:51 PM CDT Carboxyhemoglobin Normal Concentration: Non-smokers: 0-2%; Smokers: 0-9%; Toxic: >20% George Loza DISPLAY DEPARTMENT MANAGER-RESIDENTIAL ENERGY AUDITOR LAB - BLOOD GASES ORDERABLES Performing Organization Address City/State/[facility] Co de Phone Number [address] [address], [facility] [phone] * XR ABDOMEN KUB PORTABLE (08/16/2022 8:50 PM CDT) Only the most recent of2 resultswithin the time period is included. Anatomical Region Laterality Modality Abdomen Radiographic Sabina ging 08/17/2022 6:13 AM CDT Narrative 08/17/2022 10:39 AM CDT PROCEDURE: XR ABDOMEN KUB PORTABLE DATE/TIME OF EXAM: 08/16/2022 8:50 PM CLINICAL INFORMATION: None relevant/not provided if blank. Indication: T14.90XA: Trauma Additional History: COMPARISON: Enteric tube placement confirmation FINDINGS/IMPRESSION: A Dobbhoff tube courses below the diaphragm, and tip projects over stomach region. > Dictated by Brandi Moeller MD (Staff Air Defense Officer) Justin Pfeiffer have personally reviewed and interpreted this examination/study. > Interpreting Provider: Justin Cintron on 08/17/2022 10:39 AM Procedure Note Justin Cintron MD - 08/17/2022 PROCEDURE: XR ABDOMEN KUB PORTABLE DATE/TIME OF EXAM: 08/16/2022 8:50 PM CLINICAL INFORMATION: None relevant/not provided if blank. Indication: T14.90XA: Trauma Additional History: COMPARISON: Enteric tube placement confirmation FINDINGS/IMPRESSION: A Dobbhoff tube courses below the diaphragm, and tip projects overstomach region. > Dictated by Brandi Moeller MD (Staff Air [employer] Officer) IJustin have personally reviewed and interpreted this examination/study. > Interpreting Provider: Justin Cintron on 08/17/2022 10:39 AM George Loza DISPLAY DEPARTMENT MANAGER-RESIDENTIAL ENERGY AUDITOR DIAGNOSTIC IMAGING ORDERABLES * (ABNORMAL) CBC W/O DIFFERENTIAL (08/13/2022 9:05 AM T) WBC 9.1 3.5 - 10.5 10 3/uL 08/13/2022 9:33 AM [facility] RBC 3.37(L) 4.30 - 5.70 10 6/uL 08/13/2022 9:33 AM [facility] Hemoglobin 9.8(L) 12.0 - 17.6 g/dL 08/13/2022 9:33 AM [facility] Hematocrit 30.1(L) 35.2 - 51.7 % 08/13/2022 9:33 AM [facility] MCV 89.3 80.7 - 98.3 fL 08/13/2022 9:33 AM [facility] MCH 29.1 26.7 - 34.0 pg 08/13/2022 9:33 AM [facility] MCHC 32.6 30.8 - 35.9 g/dL 08/13/2022 9:33 AM [facility] RDW-SD 47.5 36.0 - 50.0 fL 08/13/2022 9:33 AM [facility] RDW-CV 14.6 11.2 - 14.8 % 08/13/2022 9:33 AM [facility] Platelet Count 153 150 - 400 10 3/uL 08/13/2022 9:33 AM CDT [facility] MPV 10.7 9.4 - 12.9 fL 08/13/2022 9:33 AM CDT [facility] nRBC Absolute 0.02(H) 0 10 3/uL 08/13/2022 9:33 AM CDT [facility] nRBC Auto 0.2(H) 0 /100 WBC 08/13/2022 9:33 AM CDT [facility] Blood BLOOD SPECIMEN / Unknown Venipuncture / Unknown 08/13/2022 9:05 AM CDT 08/13/2022 9:27 AM CDT Lalit Galicia MD LAB - HEMATOLOGY ORD ERABLES [address] [address], [facility] [phone] * (ABNORMAL) CK BLOOD (08/13/2022 9:05 AM CDT) Only the most recent of4 resultswithin the time period is included. CK Total 458(H) 30 - 200 U/L 08/13/2022 9:52 AM CDT [facility] Blood BLOOD SPECIMEN / Unknown Venipuncture / Unknown 08/13/2022 9:05 AM CDT 08/13/2022 9:28 AM CDT Joe Crowder PA-C LAB - CHEMISTRY O RDERAFLIP [address] [address], [place] [phone] * (ABNORMAL) CULTURE SPUTUM+GRAM STAIN (08/12/2022 12:00 PM CDT) Culture Moderate Cronobacter(A) GIANNA 08/14/2022 12:19 PM CDT [facility] Culture Moderate normal oropharyngeal mario GIANNA 08/14/2022 12:19 PM CDT [facility] Gram Stain <10 per low power field Squamous epithelial cells 08/14/2022 12:19 PM CDT [facility] Gram Stain >= 25 per low power field Polymorphonuclear cells 08/14/2022 12:19 PM CDT [facility] Gram Stain Moderate Gram-positive cocci 08/14/2022 12:19 PM CDT [facility] Gram Stain Moderate Gram-positive bacilli 08/14/2022 12:19 PM CDT [facility] Gram Stain Light Gram-negative bacilli 08/14/2022 12:19 PM CDT [facility] Microbiology SPECIMEN FROM ENDOTRACHEAL TUBE / Unknown Collection / Unknown 08/12/2022 12:00 PM CDT 08/12/2022 12:10 PM CDT Narrative Organism Antibiotic Method Susceptibility Cronobacter Amikacin GIANNA <=2 ug/mL: Susceptible Cronobacter Cefazolin GIANNA <=4 ug/mL: See Comment* Cronobacter Cefepime GIANNA <=1 ug/mL: Susceptible Cronobacter Ceftriaxone GIANNA <=1 ug/mL: Susceptible Cronobacter Ciprofloxacin GIANNA <=0.25 ug/mL: Susceptible Cronobacter Gentamicin GIANNA <=1 ug/mL: Susceptible Cronobacter Meropenem GIANNA <=0.25 ug/mL: Susceptible Cronobacter Piperacillin-tazobactam GIANNA <=4 ug/mL: Susceptible Cronobacter Tobramycin GIANNA <=1 ug/mL: Susceptible Cronobacter Trimethoprim-sulfame thoxa zole GIANNA <=20 ug/mL: Susceptible Comment:*Cefazolin GIANNA of </ =4 cannot distinguish between susceptible or intermediate for systemic breakpoints. If further defined interpretation is needed, call Microbiology and a disk diffusion test will be performed. Joe Crowder PA-C LAB - MICROBIOLOG Y ORDERABLES [facility] [address] [place] [address], [facility] [phone] *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 2:03 PM CDT Impressions 08/08/2022 2:22 PM CDT IMPRESSION: 1.No acute intracranial hemorrhage, midline shift, or significant mass effect. 2.No acute facial bone fractures identified. 3.Mild age indeterminate superior endplate compression deformity of the T4 vertebral body with loss of less than 20% of the vertebral body height. No retropulsion. Please correlate with point tenderness. 4.Otherwise, no evidence of acute fracture in the cervical, thoracic, or lumbar spine. 5.Please appears to concurrent, dedicated body report for findings in the chest, abdomen, and pelvis. > Interpreting Provider: Emily Epstein MD on 08/08/2022 2:22 PM Narrative 08/08/2022 2:22 PM CDT PROCEDURE: CT HEAD WO CONTRAST, CT FACIAL BONES WO CONTRAST, CT CERVICAL SPINE WO CONTRAST, CT THORACIC SPINE WO CONTRAST, CT LUMBAR SPINE WO CONTRAST, DATE/TIME OF EXAM: 08/08/2022 2:01 PM, LOCATION [facility] INDICATION: T14.90XA: Trauma EXAMINATION: 1. Computed tomography (CT) of the head without contrast 2. CT of the maxillofacial bones, orbits, and paranasal sinuses without contrast 3. CT of the cervical spine without contrast 4. CT of the thoracic spine without contrast 5. CT of the lumbar spine without contrast ADDITIONAL CLINICAL INFORMATION: Ordering Provider Reason For Exam: trauma (accession [id number]), trauma, left face abrasion (accession [id number]) Technologist Note: None. Additional: None. TECHNIQUE: CT of the head, cervical spine, and maxillofacial bones, orbits, and paranasal sinuses was performed without contrast according to standard protocol. Reformatted axial, sagittal, and coronal images of the thoracic and lumbar spine were obtained by the technologist from a concurrently performed body CT and sent to the workstation for review. CT dose reduction technique was used, including Automated Exposure Control. COMPARISON: No prior study is available for comparison at the time of this dictation. FINDINGS: Head: No acute intra- or extra-axial fluid collections are identified. There is mild cerebral volume loss with associated ex vacuo ventricular dilatation. The basilar cisterns are patent. No mass effect or midline shift is seen. The velasquez-white matter differentiation is normal. Periventricular white matter hypoattenuation is indicative of chronic small vessel ischemic disease. There is vascular calcification of the carotid siphons. No acute calvarial fracture is identified. Maxillofacial: Artifacts from the dental amalgam limits evaluation of the oral cavity. Other than bilateral cataract extractions, the orbits appear normal. Minimal mucosal thickening in the ethmoid air cells. The nasal septum is deviated to the right with a septal spur in contact with the base of the right inferior turbinate. Mild hypertrophy of the turbinates. The hard palate, mandible, and temporomandibular joints appear normal. Subtle age indeterminate nasal bone deformities. Please correlate with point tenderness. No acute facial bone fractures are identified. The mastoid air cells are clear. No soft tissue abnormality is identified. Cervical spine: There is gentle cervical kyphosis. Mild anterolisthesis of C3 on C4. Trace retrolisthesis of C5 on C6. Vertebral bodies are normal in height without evidence of acute fracture. Other than middle atlantoaxial joint osteoarthritis, the craniocervical junction appears normal. There is mild degenerative disc disease, worse at C5-C6 and C6-C7. Mild multilevel central canal stenosis is seen. There are varying degrees of mild to advanced facet osteoarthritis. There are varying degrees of mild to advanced uncovertebral joint osteoarthritis with the same degree of neural foraminal stenosis at these levels. There is atherosclerotic calcification of the carotid bifurcations. Thoracic spine: Minimal dextrocurvature of the thoracic spine. The alignment is otherwise maintained. Mild marginal spurring. Mild superior endplate compression deformity of the T4 vertebral body with loss of less than 20% of the vertebral body height. Please correlate with point tenderness. The remaining vertebral bodies bodies are normal in height without evidence of acute fracture. Schmorl's nodes are present at multiple levels. No significant central canal stenosis is seen. There are varying degrees of mild facet osteoarthritis. Mild neural foraminal stenosis at C4 the C5 on the right. Otherwise, no high-grade neural foraminal stenosis is seen. There is subsegmental atelectasis in the dependent portions of the lung bases. There is atherosclerotic calcification of the thoracic aorta and its branch vessels. There is left atrial enlargement. Multiple calcified granulomas are seen in the right lung. There is a small hiatal hernia.. Lumbar spine: Straightening of the lumbar lordosis. Trace retrolisthesis of L4 on L5. Minimal retrolisthesis of L5 on S1. Minimal dextrocurvature of the thoracolumbar junction. The alignment is otherwise maintained. Vertebral bodies are normal in height without evidence of acute fracture. There is diffuse disc bulge at multiple levels. Schmorl's nodes are present at multiple levels. No high-grade central canal stenosis is seen. There are varying degrees of mild facet osteoarthritis. There are varying degrees of neural foraminal stenosis at multiple levels. There are degenerative changes of the SI joints. There is atherosclerotic calcification of the abdominal aorta and its branch vessels. Procedure Note Emily Epstein MD - 08/08/2022 PROCEDURE: CT HEAD WO CONTRAST, CT FACIAL BONES WO CONTRAST, CTCERVICAL SPINE WO CONTRAST, CT THORACIC SPINE WO CONTRAST, CT LUMBAR SPINE WO CONTRAST, DATE/TIME OF EXAM: 08/08/2022 2:01 PM, LOCATION [facility] INDICATION: T14.90XA: Trauma EXAMINATION: 1. Computed tomography (CT) of the head without contrast 2. CT of the maxillofacial bones, orbits, and paranasal sinuses without contrast 3. CT of the cervical spine without contrast 4. CT of the thoracic spine without contrast 5. CT of the lumbar spine without contrast ADDITIONAL CLINICAL INFORMATION: Ordering Provider Reason For Exam: trauma (accession [id number]),trauma, left face abrasion (accession [id number]) Technologist Note: None. Additional: None. TECHNIQUE: CT of the head, cervical spine, and maxillofacial bones,orbits, and paranasal sinuses was performed without contrast according tostandard protocol. Reformatted axial, sagittal, and coronal images of thethoracic and lumbar spine were obtained by the technologist from a concurrently performed body CT and sent to the workstation for review. CT dosereduction technique was used, including Automated Exposure Control. COMPARISON: No prior study is available for comparison at the time ofthis dictation. FINDINGS: Head: No acute intra- or extra-axial fluid collections are identified. Thereis mild cerebral volume loss with associated ex vacuo ventriculardilatation. The basilar cisterns are patent. No mass effect or midline shift isseen. The velasquez-white matter differentiation is normal. Periventricular white matter hypoattenuation is indicative of chronic small vessel ischemic disease. There is vascular calcification of the carotid siphons. Noacute calvarial fracture is identified. Maxillofacial: Artifacts from the dental amalgam limits evaluation of the oral cavity. Other than bilateral cataract extractions, the orbits appear normal. Minimal mucosal thickening in the ethmoid air cells. The nasal septum is deviated to the right with a septal spur in contact with the base of the right inferior turbinate. Mild hypertrophy of the turbinates. The hard palate, mandible, and temporomandibular joints appear normal. Subtle age indeterminate nasal bone deformities. Please correlate with point tenderness. No acute facial bone fractures are identified. The mastoidair cells are clear. No soft tissue abnormality is identified. Cervical spine: There is gentle cervical kyphosis. Mild anterolisthesis of C3 on C4.Trace retrolisthesis of C5 on C6. Vertebral bodies are normal in heightwithout evidence of acute fracture. Other than middle atlantoaxial joint osteoarthritis, the craniocervical junction appears normal. There ismild degenerative disc disease, worse at C5-C6 and C6-C7. Mild multilevel central canal stenosis is seen. There are varying degrees of mild to advanced facet osteoarthritis. There are varying degrees of mild to advanced uncovertebral joint osteoarthritis with the same degree ofneural foraminal stenosis at these levels. There is atheroscleroticcalcification of the carotid bifurcations. Thoracic spine: Minimal dextrocurvature of the thoracic spine. The alignment isotherwise maintained. Mild marginal spurring. Mild superior endplate compression deformity of the T4 vertebral body with loss of less than 20% of the vertebral body height. Please correlate with point tenderness. The remaining vertebral bodies bodies are normal in height without evidenceof acute fracture. Schmorl's nodes are present at multiple levels. No significant central canal stenosis is seen. There are varying degrees of mild facet osteoarthritis. Mild neural foraminal stenosis at C4 the C5on the right. Otherwise, no high-grade neural foraminal stenosis is seen. There is subsegmental atelectasis in the dependent portions of the lung bases. There is atherosclerotic calcification of the thoracic aorta andits branch vessels. There is left atrial enlargement. Multiple calcified granulomas are seen in the right lung. There is a small hiatal hernia.. Lumbar spine: Straightening of the lumbar lordosis. Trace retrolisthesis of L4 on L5. Minimal retrolisthesis of L5 on S1. Minimal dextrocurvature of the thoracolumbar junction. The alignment is otherwise maintained. Vertebral bodies are normal in height without evidence of acute fracture. There is diffuse disc bulge at multiple levels. Schmorl's nodes are present at multiple levels. No high-grade central canal stenosis is seen. There are varying degrees of mild facet osteoarthritis. There are varying degreesof neural foraminal stenosis at multiple levels. There are degenerative changes of the SI joints. There is atherosclerotic calcification of the abdominal aorta and its branch vessels. IMPRESSION: 1.No acute intracranial hemorrhage, midline shift, or significant mass effect. 2.No acute facial bone fractures identified. 3.Mild age indeterminate superior endplate compression deformity of theT4 vertebral body with loss of less than 20% of the vertebral body height.No retropulsion. Please correlate with point tenderness. 4.Otherwise, no evidence of acute fracture in the cervical, thoracic, or lumbar spine. 5.Please appears to concurrent, dedicated body report for findings inthe chest, abdomen, and pelvis. > Interpreting Provider: Emily Epstein MD on 08/08/2022 2:22 PM An Bertrand MD CT ORDERABLES * CT CERVICAL SPINE WO CONTRAST (08/08/2022 2:00 PM CDT) Anatomical Region Laterality Modality Spine Computed Tomogra phy 08/08/2022 2:03 PM CDT Impressions 08/08/2022 2:22 PM CDT IMPRESSION: 1.No acute intracranial hemorrhage, midline shift, or significant mass effect. 2.No acute facial bone fractures identified. 3.Mild age indeterminate superior endplate compression deformity of the T4 vertebral body with loss of less than 20% of the vertebral body height. No retropulsion. Please correlate with point tenderness. 4.Otherwise, no evidence of acute fracture in the cervical, thoracic, or lumbar spine. 5.Please appears to concurrent, dedicated body report for findings in the chest, abdomen, and pelvis. > Interpreting Provider: Emily Epstein MD on 08/08/2022 2:22 PM Narrative 08/08/2022 2:22 PM CDT PROCEDURE: CT HEAD WO CONTRAST, CT FACIAL BONES WO CONTRAST, CT CERVICAL SPINE WO CONTRAST, CT THORACIC SPINE WO CONTRAST, CT LUMBAR SPINE WO CONTRAST, DATE/TIME OF EXAM: 08/08/2022 2:01 PM, LOCATION [facility] INDICATION: T14.90XA: Trauma EXAMINATION: 1. Computed tomography (CT) of the head without contrast 2. CT of the maxillofacial bones, orbits, and paranasal sinuses without contrast 3. CT of the cervical spine without contrast 4. CT of the thoracic spine without contrast 5. CT of the lumbar spine without contrast ADDITIONAL CLINICAL INFORMATION: Ordering Provider Reason For Exam: trauma (accession [id number]), trauma, left face abrasion (accession [id number]) Technologist Note: None. Additional: None. TECHNIQUE: CT of the head, cervical spine, and maxillofacial bones, orbits, and paranasal sinuses was performed without contrast according to standard protocol. Reformatted axial, sagittal, and coronal images of the thoracic and lumbar spine were obtained by the technologist from a concurrently performed body CT and sent to the workstation for review. CT dose reduction technique was used, including Automated Exposure Control. COMPARISON: No prior study is available for comparison at the time of this dictation. FINDINGS: Head: No acute intra- or extra-axial fluid collections are identified. There is mild cerebral volume loss with associated ex vacuo ventricular dilatation. The basilar cisterns are patent. No mass effect or midline shift is seen. The velasquez-white matter differentiation is normal. Periventricular white matter hypoattenuation is indicative of chronic small vessel ischemic disease. There is vascular calcification of the carotid siphons. No acute calvarial fracture is identified. Maxillofacial: Artifacts from the dental amalgam limits evaluation of the oral cavity. Other than bilateral cataract extractions, the orbits appear normal. Minimal mucosal thickening in the ethmoid air cells. The nasal septum is deviated to the right with a septal spur in contact with the base of the right inferior turbinate. Mild hypertrophy of the turbinates. The hard palate, mandible, and temporomandibular joints appear normal. Subtle age indeterminate nasal bone deformities. Please correlate with point tenderness. No acute facial bone fractures are identified. The mastoid air cells are clear. No soft tissue abnormality is identified. Cervical spine: There is gentle cervical kyphosis. Mild anterolisthesis of C3 on C4. Trace retrolisthesis of C5 on C6. Vertebral bodies are normal in height without evidence of acute fracture. Other than middle atlantoaxial joint osteoarthritis, the craniocervical junction appears normal. There is mild degenerative disc disease, worse at C5-C6 and C6-C7. Mild multilevel central canal stenosis is seen. There are varying degrees of mild to advanced facet osteoarthritis. There are varying degrees of mild to advanced uncovertebral joint osteoarthritis with the same degree of neural foraminal stenosis at these levels. There is atherosclerotic calcification of the carotid bifurcations. Thoracic spine: Minimal dextrocurvature of the thoracic spine. The alignment is otherwise maintained. Mild marginal spurring. Mild superior endplate compression deformity of the T4 vertebral body with loss of less than 20% of the vertebral body height. Please correlate with point tenderness. The remaining vertebral bodies bodies are normal in height without evidence of acute fracture. Schmorl's nodes are present at multiple levels. No significant central canal stenosis is seen. There are varying degrees of mild facet osteoarthritis. Mild neural foraminal stenosis at C4 the C5 on the right. Otherwise, no high-grade neural foraminal stenosis is seen. There is subsegmental atelectasis in the dependent portions of the lung bases. There is atherosclerotic calcification of the thoracic aorta and its branch vessels. There is left atrial enlargement. Multiple calcified granulomas are seen in the right lung. There is a small hiatal hernia.. Lumbar spine: Straightening of the lumbar lordosis. Trace retrolisthesis of L4 on L5. Minimal retrolisthesis of L5 on S1. Minimal dextrocurvature of the thoracolumbar junction. The alignment is otherwise maintained. Vertebral bodies are normal in height without evidence of acute fracture. There is diffuse disc bulge at multiple levels. Schmorl's nodes are present at multiple levels. No high-grade central canal stenosis is seen. There are varying degrees of mild facet osteoarthritis. There are varying degrees of neural foraminal stenosis at multiple levels. There are degenerative changes of the SI joints. There is atherosclerotic calcification of the abdominal aorta and its branch vessels. Procedure Note Emily Epstein MD - 08/08/2022 PROCEDURE: CT HEAD WO CONTRAST, CT FACIAL BONES WO CONTRAST, CTCERVICAL SPINE WO CONTRAST, CT THORACIC SPINE WO CONTRAST, CT LUMBAR SPINE WO CONTRAST, DATE/TIME OF EXAM: 08/08/2022 2:01 PM, LOCATION [facility] INDICATION: T14.90XA: Trauma EXAMINATION: 1. Computed tomography (CT) of the head without contrast 2. CT of the maxillofacial bones, orbits, and paranasal sinuses without contrast 3. CT of the cervical spine without contrast 4. CT of the thoracic spine without contrast 5. CT of the lumbar spine without contrast ADDITIONAL CLINICAL INFORMATION: Ordering Provider Reason For Exam: trauma (accession [id number]),trauma, left face abrasion (accession [id number]) Technologist Note: None. Additional: None. TECHNIQUE: CT of the head, cervical spine, and maxillofacial bones,orbits, and paranasal sinuses was performed without contrast according tostandard protocol. Reformatted axial, sagittal, and coronal images of thethoracic and lumbar spine were obtained by the technologist from a concurrently performed body CT and sent to the workstation for review. CT dosereduction technique was used, including Automated Exposure Control. COMPARISON: No prior study is available for comparison at the time ofthis dictation. FINDINGS: Head: No acute intra- or extra-axial fluid collections are identified. Thereis mild cerebral volume loss with associated ex vacuo ventriculardilatation. The basilar cisterns are patent. No mass effect or midline shift isseen. The velasquez-white matter differentiation is normal. Periventricular white matter hypoattenuation is indicative of chronic small vessel ischemic disease. There is vascular calcification of the carotid siphons. Noacute calvarial fracture is identified. Maxillofacial: Artifacts from the dental amalgam limits evaluation of the oral cavity. Other than bilateral cataract extractions, the orbits appear normal. Minimal mucosal thickening in the ethmoid air cells. The nasal septum is deviated to the right with a septal spur in contact with the base of the right inferior turbinate. Mild hypertrophy of the turbinates. The hard palate, mandible, and temporomandibular joints appear normal. Subtle age indeterminate nasal bone deformities. Please correlate with point tenderness. No acute facial bone fractures are identified. The mastoidair cells are clear. No soft tissue abnormality is identified. Cervical spine: There is gentle cervical kyphosis. Mild anterolisthesis of C3 on C4.Trace retrolisthesis of C5 on C6. Vertebral bodies are normal in heightwithout evidence of acute fracture. Other than middle atlantoaxial joint osteoarthritis, the craniocervical junction appears normal. There ismild degenerative disc disease, worse at C5-C6 and C6-C7. Mild multilevel central canal stenosis is seen. There are varying degrees of mild to advanced facet osteoarthritis. There are varying degrees of mild to advanced uncovertebral joint osteoarthritis with the same degree ofneural foraminal stenosis at these levels. There is atheroscleroticcalcification of the carotid bifurcations. Thoracic spine: Minimal dextrocurvature of the thoracic spine. The alignment isotherwise maintained. Mild marginal spurring. Mild superior endplate compression deformity of the T4 vertebral body with loss of less than 20% of the vertebral body height. Please correlate with point tenderness. The remaining vertebral bodies bodies are normal in height without evidenceof acute fracture. Schmorl's nodes are present at multiple levels. No significant central canal stenosis is seen. There are varying degrees of mild facet osteoarthritis. Mild neural foraminal stenosis at C4 the C5on the right. Otherwise, no high-grade neural foraminal stenosis is seen. There is subsegmental atelectasis in the dependent portions of the lung bases. There is atherosclerotic calcification of the thoracic aorta andits branch vessels. There is left atrial enlargement. Multiple calcified granulomas are seen in the right lung. There is a small hiatal hernia.. Lumbar spine: Straightening of the lumbar lordosis. Trace retrolisthesis of L4 on L5. Minimal retrolisthesis of L5 on S1. Minimal dextrocurvature of the thoracolumbar junction. The alignment is otherwise maintained. Vertebral bodies are normal in height without evidence of acute fracture. There is diffuse disc bulge at multiple levels. Schmorl's nodes are present at multiple levels. No high-grade central canal stenosis is seen. There are varying degrees of mild facet osteoarthritis. There are varying degreesof neural foraminal stenosis at multiple levels. There are degenerative changes of the SI joints. There is atherosclerotic calcification of the abdominal aorta and its branch vessels. IMPRESSION: 1.No acute intracranial hemorrhage, midline shift, or significant mass effect. 2.No acute facial bone fractures identified. 3.Mild age indeterminate superior endplate compression deformity of theT4 vertebral body with loss of less than 20% of the vertebral body height.No retropulsion. Please correlate with point tenderness. 4.Otherwise, no evidence of acute fracture in the cervical, thoracic, or lumbar spine. 5.Please appears to concurrent, dedicated body report for findings inthe chest, abdomen, and pelvis. > Interpreting Provider: Emily Epstein MD on 08/08/2022 2:22 PM An Bertrand MD CT ORDERABLES * CT FACIAL BONES WO CONTRAST (08/08/2022 2:00 PM CDT) Anatomical Region Laterality Modality Head Computed Tomogra phy 08/08/2022 2:03 PM CDT Impressions 08/08/2022 2:22 PM CDT IMPRESSION: 1.No acute intracranial hemorrhage, midline shift, or significant mass effect. 2.No acute facial bone fractures identified. 3.Mild age indeterminate superior endplate compression deformity of the T4 vertebral body with loss of less than 20% of the vertebral body height. No retropulsion. Please correlate with point tenderness. 4.Otherwise, no evidence of acute fracture in the cervical, thoracic, or lumbar spine. 5.Please appears to concurrent, dedicated body report for findings in the chest, abdomen, and pelvis. > Interpreting Provider: Emily Epstein MD on 08/08/2022 2:22 PM Narrative 08/08/2022 2:22 PM CDT PROCEDURE: CT HEAD WO CONTRAST, CT FACIAL BONES WO CONTRAST, CT CERVICAL SPINE WO CONTRAST, CT THORACIC SPINE WO CONTRAST, CT LUMBAR SPINE WO CONTRAST, DATE/TIME OF EXAM: 08/08/2022 2:01 PM, LOCATION [facility] INDICATION: T14.90XA: Trauma EXAMINATION: 1. Computed tomography (CT) of the head without contrast 2. CT of the maxillofacial bones, orbits, and paranasal sinuses without contrast 3. CT of the cervical spine without contrast 4. CT of the thoracic spine without contrast 5. CT of the lumbar spine without contrast ADDITIONAL CLINICAL INFORMATION: Ordering Provider Reason For Exam: trauma (accession [id number]), trauma, left face abrasion (accession [id number]) Technologist Note: None. Additional: None. TECHNIQUE: CT of the head, cervical spine, and maxillofacial bones, orbits, and paranasal sinuses was performed without contrast according to standard protocol. Reformatted axial, sagittal, and coronal images of the thoracic and lumbar spine were obtained by the technologist from a concurrently performed body CT and sent to the workstation for review. CT dose reduction technique was used, including Automated Exposure Control. COMPARISON: No prior study is available for comparison at the time of this dictation. FINDINGS: Head: No acute intra- or extra-axial fluid collections are identified. There is mild cerebral volume loss with associated ex vacuo ventricular dilatation. The basilar cisterns are patent. No mass effect or midline shift is seen. The velasquez-white matter differentiation is normal. Periventricular white matter hypoattenuation is indicative of chronic small vessel ischemic disease. There is vascular calcification of the carotid siphons. No acute calvarial fracture is identified. Maxillofacial: Artifacts from the dental amalgam limits evaluation of the oral cavity. Other than bilateral cataract extractions, the orbits appear normal. Minimal mucosal thickening in the ethmoid air cells. The nasal septum is deviated to the right with a septal spur in contact with the base of the right inferior turbinate. Mild hypertrophy of the turbinates. The hard palate, mandible, and temporomandibular joints appear normal. Subtle age indeterminate nasal bone deformities. Please correlate with point tenderness. No acute facial bone fractures are identified. The mastoid air cells are clear. No soft tissue abnormality is identified. Cervical spine: There is gentle cervical kyphosis. Mild anterolisthesis of C3 on C4. Trace retrolisthesis of C5 on C6. Vertebral bodies are normal in height without evidence of acute fracture. Other than middle atlantoaxial joint osteoarthritis, the craniocervical junction appears normal. There is mild degenerative disc disease, worse at C5-C6 and C6-C7. Mild multilevel central canal stenosis is seen. There are varying degrees of mild to advanced facet osteoarthritis. There are varying degrees of mild to advanced uncovertebral joint osteoarthritis with the same degree of neural foraminal stenosis at these levels. There is atherosclerotic calcification of the carotid bifurcations. Thoracic spine: Minimal dextrocurvature of the thoracic spine. The alignment is otherwise maintained. Mild marginal spurring. Mild superior endplate compression deformity of the T4 vertebral body with loss of less than 20% of the vertebral body height. Please correlate with point tenderness. The remaining vertebral bodies bodies are normal in height without evidence of acute fracture. Schmorl's nodes are present at multiple levels. No significant central canal stenosis is seen. There are varying degrees of mild facet osteoarthritis. Mild neural foraminal stenosis at C4 the C5 on the right. Otherwise, no high-grade neural foraminal stenosis is seen. There is subsegmental atelectasis in the dependent portions of the lung bases. There is atherosclerotic calcification of the thoracic aorta and its branch vessels. There is left atrial enlargement. Multiple calcified granulomas are seen in the right lung. There is a small hiatal hernia.. Lumbar spine: Straightening of the lumbar lordosis. Trace retrolisthesis of L4 on L5. Minimal retrolisthesis of L5 on S1. Minimal dextrocurvature of the thoracolumbar junction. The alignment is otherwise maintained. Vertebral bodies are normal in height without evidence of acute fracture. There is diffuse disc bulge at multiple levels. Schmorl's nodes are present at multiple levels. No high-grade central canal stenosis is seen. There are varying degrees of mild facet osteoarthritis. There are varying degrees of neural foraminal stenosis at multiple levels. There are degenerative changes of the SI joints. There is atherosclerotic calcification of the abdominal aorta and its branch vessels. Procedure Note Emily Epstein MD - 08/08/2022 PROCEDURE: CT HEAD WO CONTRAST, CT FACIAL BONES WO CONTRAST, CTCERVICAL SPINE WO CONTRAST, CT THORACIC SPINE WO CONTRAST, CT LUMBAR SPINE WO CONTRAST, DATE/TIME OF EXAM: 08/08/2022 2:01 PM, LOCATION [facility] INDICATION: T14.90XA: Trauma EXAMINATION: 1. Computed tomography (CT) of the head without contrast 2. CT of the maxillofacial bones, orbits, and paranasal sinuses without contrast 3. CT of the cervical spine without contrast 4. CT of the thoracic spine without contrast 5. CT of the lumbar spine without contrast ADDITIONAL CLINICAL INFORMATION: Ordering Provider Reason For Exam: trauma (accession [id number]),trauma, left face abrasion (accession [id number]) Technologist Note: None. Additional: None. TECHNIQUE: CT of the head, cervical spine, and maxillofacial bones,orbits, and paranasal sinuses was performed without contrast according tostandard protocol. Reformatted axial, sagittal, and coronal images of thethoracic and lumbar spine were obtained by the technologist from a concurrently performed body CT and sent to the workstation for review. CT dosereduction technique was used, including Automated Exposure Control. COMPARISON: No prior study is available for comparison at the time ofthis dictation. FINDINGS: Head: No acute intra- or extra-axial fluid collections are identified. Thereis mild cerebral volume loss with associated ex vacuo ventriculardilatation. The basilar cisterns are patent. No mass effect or midline shift isseen. The velasquez-white matter differentiation is normal. Periventricular white matter hypoattenuation is indicative of chronic small vessel ischemic disease. There is vascular calcification of the carotid siphons. Noacute calvarial fracture is identified. Maxillofacial: Artifacts from the dental amalgam limits evaluation of the oral cavity. Other than bilateral cataract extractions, the orbits appear normal. Minimal mucosal thickening in the ethmoid air cells. The nasal septum is deviated to the right with a septal spur in contact with the base of the right inferior turbinate. Mild hypertrophy of the turbinates. The hard palate, mandible, and temporomandibular joints appear normal. Subtle age indeterminate nasal bone deformities. Please correlate with point tenderness. No acute facial bone fractures are identified. The mastoidair cells are clear. No soft tissue abnormality is identified. Cervical spine: There is gentle cervical kyphosis. Mild anterolisthesis of C3 on C4.Trace retrolisthesis of C5 on C6. Vertebral bodies are normal in heightwithout evidence of acute fracture. Other than middle atlantoaxial joint osteoarthritis, the craniocervical junction appears normal. There ismild degenerative disc disease, worse at C5-C6 and C6-C7. Mild multilevel central canal stenosis is seen. There are varying degrees of mild to advanced facet osteoarthritis. There are varying degrees of mild to advanced uncovertebral joint osteoarthritis with the same degree ofneural foraminal stenosis at these levels. There is atheroscleroticcalcification of the carotid bifurcations. Thoracic spine: Minimal dextrocurvature of the thoracic spine. The alignment isotherwise maintained. Mild marginal spurring. Mild superior endplate compression deformity of the T4 vertebral body with loss of less than 20% of the vertebral body height. Please correlate with point tenderness. The remaining vertebral bodies bodies are normal in height without evidenceof acute fracture. Schmorl's nodes are present at multiple levels. No significant central canal stenosis is seen. There are varying degrees of mild facet osteoarthritis. Mild neural foraminal stenosis at C4 the C5on the right. Otherwise, no high-grade neural foraminal stenosis is seen. There is subsegmental atelectasis in the dependent portions of the lung bases. There is atherosclerotic calcification of the thoracic aorta andits branch vessels. There is left atrial enlargement. Multiple calcified granulomas are seen in the right lung. There is a small hiatal hernia.. Lumbar spine: Straightening of the lumbar lordosis. Trace retrolisthesis of L4 on L5. Minimal retrolisthesis of L5 on S1. Minimal dextrocurvature of the thoracolumbar junction. The alignment is otherwise maintained. Vertebral bodies are normal in height without evidence of acute fracture. There is diffuse disc bulge at multiple levels. Schmorl's nodes are present at multiple levels. No high-grade central canal stenosis is seen. There are varying degrees of mild facet osteoarthritis. There are varying degreesof neural foraminal stenosis at multiple levels. There are degenerative changes of the SI joints. There is atherosclerotic calcification of the abdominal aorta and its branch vessels. IMPRESSION: 1.No acute intracranial hemorrhage, midline shift, or significant mass effect. 2.No acute facial bone fractures identified. 3.Mild age indeterminate superior endplate compression deformity of theT4 vertebral body with loss of less than 20% of the vertebral body height.No retropulsion. Please correlate with point tenderness. 4.Otherwise, no evidence of acute fracture in the cervical, thoracic, or lumbar spine. 5.Please appears to concurrent, dedicated body report for findings inthe chest, abdomen, and pelvis. > Interpreting Provider: Emily Epstein MD on 08/08/2022 2:22 PM An Bertrand MD CT ORDERABLES * CT HEAD WO CONTRAST (08/08/2022 2:00 PM CDT) Anatomical Region Laterality Modality Head Computed Tomogra phy 08/08/2022 2:03 PM CDT Impressions 08/08/2022 2:22 PM CDT IMPRESSION: 1.No acute intracranial hemorrhage, midline shift, or significant mass effect. 2.No acute facial bone fractures identified. 3.Mild age indeterminate superior endplate compression deformity of the T4 vertebral body with loss of less than 20% of the vertebral body height. No retropulsion. Please correlate with point tenderness. 4.Otherwise, no evidence of acute fracture in the cervical, thoracic, or lumbar spine. 5.Please appears to concurrent, dedicated body report for findings in the chest, abdomen, and pelvis. > Interpreting Provider: Emily Epstein MD on 08/08/2022 2:22 PM Narrative 08/08/2022 2:22 PM CDT PROCEDURE: CT HEAD WO CONTRAST, CT FACIAL BONES WO CONTRAST, CT CERVICAL SPINE WO CONTRAST, CT THORACIC SPINE WO CONTRAST, CT LUMBAR SPINE WO CONTRAST, DATE/TIME OF EXAM: 08/08/2022 2:01 PM, LOCATION [facility] INDICATION: T14.90XA: Trauma EXAMINATION: 1. Computed tomography (CT) of the head without contrast 2. CT of the maxillofacial bones, orbits, and paranasal sinuses without contrast 3. CT of the cervical spine without contrast 4. CT of the thoracic spine without contrast 5. CT of the lumbar spine without contrast ADDITIONAL CLINICAL INFORMATION: Ordering Provider Reason For Exam: trauma (accession [id number]), trauma, left face abrasion (accession [id number]) Technologist Note: None. Additional: None. TECHNIQUE: CT of the head, cervical spine, and maxillofacial bones, orbits, and paranasal sinuses was performed without contrast according to standard protocol. Reformatted axial, sagittal, and coronal images of the thoracic and lumbar spine were obtained by the technologist from a concurrently performed body CT and sent to the workstation for review. CT dose reduction technique was used, including Automated Exposure Control. COMPARISON: No prior study is available for comparison at the time of this dictation. FINDINGS: Head: No acute intra- or extra-axial fluid collections are identified. There is mild cerebral volume loss with associated ex vacuo ventricular dilatation. The basilar cisterns are patent. No mass effect or midline shift is seen. The velasquez-white matter differentiation is normal. Periventricular white matter hypoattenuation is indicative of chronic small vessel ischemic disease. There is vascular calcification of the carotid siphons. No acute calvarial fracture is identified. Maxillofacial: Artifacts from the dental amalgam limits evaluation of the oral cavity. Other than bilateral cataract extractions, the orbits appear normal. Minimal mucosal thickening in the ethmoid air cells. The nasal septum is deviated to the right with a septal spur in contact with the base of the right inferior turbinate. Mild hypertrophy of the turbinates. The hard palate, mandible, and temporomandibular joints appear normal. Subtle age indeterminate nasal bone deformities. Please correlate with point tenderness. No acute facial bone fractures are identified. The mastoid air cells are clear. No soft tissue abnormality is identified. Cervical spine: There is gentle cervical kyphosis. Mild anterolisthesis of C3 on C4. Trace retrolisthesis of C5 on C6. Vertebral bodies are normal in height without evidence of acute fracture. Other than middle atlantoaxial joint osteoarthritis, the craniocervical junction appears normal. There is mild degenerative disc disease, worse at C5-C6 and C6-C7. Mild multilevel central canal stenosis is seen. There are varying degrees of mild to advanced facet osteoarthritis. There are varying degrees of mild to advanced uncovertebral joint osteoarthritis with the same degree of neural foraminal stenosis at these levels. There is atherosclerotic calcification of the carotid bifurcations. Thoracic spine: Minimal dextrocurvature of the thoracic spine. The alignment is otherwise maintained. Mild marginal spurring. Mild superior endplate compression deformity of the T4 vertebral body with loss of less than 20% of the vertebral body height. Please correlate with point tenderness. The remaining vertebral bodies bodies are normal in height without evidence of acute fracture. Schmorl's nodes are present at multiple levels. No significant central canal stenosis is seen. There are varying degrees of mild facet osteoarthritis. Mild neural foraminal stenosis at C4 the C5 on the right. Otherwise, no high-grade neural foraminal stenosis is seen. There is subsegmental atelectasis in the dependent portions of the lung bases. There is atherosclerotic calcification of the thoracic aorta and its branch vessels. There is left atrial enlargement. Multiple calcified granulomas are seen in the right lung. There is a small hiatal hernia.. Lumbar spine: Straightening of the lumbar lordosis. Trace retrolisthesis of L4 on L5. Minimal retrolisthesis of L5 on S1. Minimal dextrocurvature of the thoracolumbar junction. The alignment is otherwise maintained. Vertebral bodies are normal in height without evidence of acute fracture. There is diffuse disc bulge at multiple levels. Schmorl's nodes are present at multiple levels. No high-grade central canal stenosis is seen. There are varying degrees of mild facet osteoarthritis. There are varying degrees of neural foraminal stenosis at multiple levels. There are degenerative changes of the SI joints. There is atherosclerotic calcification of the abdominal aorta and its branch vessels. Procedure Note Emily Epstein MD - 08/08/2022 PROCEDURE: CT HEAD WO CONTRAST, CT FACIAL BONES WO CONTRAST, CTCERVICAL SPINE WO CONTRAST, CT THORACIC SPINE WO CONTRAST, CT LUMBAR SPINE WO CONTRAST, DATE/TIME OF EXAM: 08/08/2022 2:01 PM, LOCATION [facility] INDICATION: T14.90XA: Trauma EXAMINATION: 1. Computed tomography (CT) of the head without contrast 2. CT of the maxillofacial bones, orbits, and paranasal sinuses without contrast 3. CT of the cervical spine without contrast 4. CT of the thoracic spine without contrast 5. CT of the lumbar spine without contrast ADDITIONAL CLINICAL INFORMATION: Ordering Provider Reason For Exam: trauma (accession [id number]),trauma, left face abrasion (accession [id number]) Technologist Note: None. Additional: None. TECHNIQUE: CT of the head, cervical spine, and maxillofacial bones,orbits, and paranasal sinuses was performed without contrast according tostandard protocol. Reformatted axial, sagittal, and coronal images of thethoracic and lumbar spine were obtained by the technologist from a concurrently performed body CT and sent to the workstation for review. CT dosereduction technique was used, including Automated Exposure Control. COMPARISON: No prior study is available for comparison at the time ofthis dictation. FINDINGS: Head: No acute intra- or extra-axial fluid collections are identified. Thereis mild cerebral volume loss with associated ex vacuo ventriculardilatation. The basilar cisterns are patent. No mass effect or midline shift isseen. The velasquez-white matter differentiation is normal. Periventricular white matter hypoattenuation is indicative of chronic small vessel ischemic disease. There is vascular calcification of the carotid siphons. Noacute calvarial fracture is identified. Maxillofacial: Artifacts from the dental amalgam limits evaluation of the oral cavity. Other than bilateral cataract extractions, the orbits appear normal. Minimal mucosal thickening in the ethmoid air cells. The nasal septum is deviated to the right with a septal spur in contact with the base of the right inferior turbinate. Mild hypertrophy of the turbinates. The hard palate, mandible, and temporomandibular joints appear normal. Subtle age indeterminate nasal bone deformities. Please correlate with point tenderness. No acute facial bone fractures are identified. The mastoidair cells are clear. No soft tissue abnormality is identified. Cervical spine: There is gentle cervical kyphosis. Mild anterolisthesis of C3 on C4.Trace retrolisthesis of C5 on C6. Vertebral bodies are normal in heightwithout evidence of acute fracture. Other than middle atlantoaxial joint osteoarthritis, the craniocervical junction appears normal. There ismild degenerative disc disease, worse at C5-C6 and C6-C7. Mild multilevel central canal stenosis is seen. There are varying degrees of mild to advanced facet osteoarthritis. There are varying degrees of mild to advanced uncovertebral joint osteoarthritis with the same degree ofneural foraminal stenosis at these levels. There is atheroscleroticcalcification of the carotid bifurcations. Thoracic spine: Minimal dextrocurvature of the thoracic spine. The alignment isotherwise maintained. Mild marginal spurring. Mild superior endplate compression deformity of the T4 vertebral body with loss of less than 20% of the vertebral body height. Please correlate with point tenderness. The remaining vertebral bodies bodies are normal in height without evidenceof acute fracture. Schmorl's nodes are present at multiple levels. No significant central canal stenosis is seen. There are varying degrees of mild facet osteoarthritis. Mild neural foraminal stenosis at C4 the C5on the right. Otherwise, no high-grade neural foraminal stenosis is seen. There is subsegmental atelectasis in the dependent portions of the lung bases. There is atherosclerotic calcification of the thoracic aorta andits branch vessels. There is left atrial enlargement. Multiple calcified granulomas are seen in the right lung. There is a small hiatal hernia.. Lumbar spine: Straightening of the lumbar lordosis. Trace retrolisthesis of L4 on L5. Minimal retrolisthesis of L5 on S1. Minimal dextrocurvature of the thoracolumbar junction. The alignment is otherwise maintained. Vertebral bodies are normal in height without evidence of acute fracture. There is diffuse disc bulge at multiple levels. Schmorl's nodes are present at multiple levels. No high-grade central canal stenosis is seen. There are varying degrees of mild facet osteoarthritis. There are varying degreesof neural foraminal stenosis at multiple levels. There are degenerative changes of the SI joints. There is atherosclerotic calcification of the abdominal aorta and its branch vessels. IMPRESSION: 1.No acute intracranial hemorrhage, midline shift, or significant mass effect. 2.No acute facial bone fractures identified. 3.Mild age indeterminate superior endplate compression deformity of theT4 vertebral body with loss of less than 20% of the vertebral body height.No retropulsion. Please correlate with point tenderness. 4.Otherwise, no evidence of acute fracture in the cervical, thoracic, or lumbar spine. 5.Please appears to concurrent, dedicated body report for findings inthe chest, abdomen, and pelvis. > Interpreting Provider: Emily Epstein MD on 08/08/2022 2:22 PM An Bertrand MD CT ORDERABLES * PTT [facility] (08/08/2022 1:36 PM CDT) APTT 23.3 23.0 - 38.4 Seconds 08/08/2022 2:07 PM CDT [facility] Comment:Suggested therapeuti c range for full dose I.V. unfractionated heparin therapy for venous thromboembolism is 71 to 109 seconds. Blood BLOOD SPECIMEN / Unknown Venipuncture / Unknown 08/08/2022 1:36 PM CDT 08/08/2022 1:41 PM CDT An Bertrand MD LAB - COAGULATION OR DERABLES Performing Organization Address [facility] Co de Phone Number [facility] [address] [place] [address], [facility] [phone] * PT-INR [facility] (08/08/2022 1:36 PM CDT) Pathologist [facility] 13.3 12.1 - 14.8 Seconds 08/08/2022 2:07 PM CDT [facility] INR 1.0 See Comment 08/08/2022 2:07 PM CDT [facility] Comment:The suggested therap eutic range for standard coumadin (warfarin) therapy is an INR of 2.0-3.0. For high-risk patients (Mechanical Mitral Valve Prosthesis, etc.), the suggested prophylactic therapeutic range is an INR of 2.5-3.5. Blood BLOOD SPECIMEN / Unknown Venipuncture / Unknown 08/08/2022 1:36 PM CDT 08/08/2022 1:41 PM CDT An Bertrand MD LAB - COAGULATION OR DERABLES Performing Organization Address [facility] Co de Phone Number [facility] [address] [place] [address], [facility] [phone] * TYPE + SCREEN PANEL (08/08/2022 1:36 PM CDT) Antibody Screen NEG 2:34 PM CDT [facility] BLOOD BANK LAB ABO Rh O POS 08/08/2022 2:34 PM CDT [facility] BLOOD BANK LAB Blood Bank BLOOD SPECIMEN / Unknown Venipuncture / Unknown 08/08/2022 1:36 PM CDT 08/08/2022 1:45 PM CDT An Bertrand MD LAB - BLOOD BANK ORD MAIDA [facility] [address] [place] [address], [place] [phone] * (ABNORMAL) HEPATIC FUNCTION PANEL (08/08/2022 1:36 PM CDT) Pathologist [facility] Protein Total 7.5 6.0 - 8.3 g/dL 023 2:15 PM CDT [facility] Albumin 4.2 3.4 - 5.0 g/dL 08/08/2022 2:15 PM CDT [facility] Bilirubin Total 0.6 0.2 - 1.2 mg/dL 07/12 2:15 PM CDT [facility] Bilirubin Conjugated 0.3 0.1 - 0.5 mg/dL 08/08/2022 2:15 PM CDT [facility] Bilirubin Unconjugated 0.3 Unconjugated Bilirubin is a calculated value: Reference ranges have not been established. mg/dL 08/08/2022 2:15 PM CDT [facility] Alkaline Phosphatase 48 40 - 150 U/L 08/08/2022 2:15 PM CDT [facility] ALT 122(H) 5 - 55 U/L 08/08/2022 2:15 PM CDT [facility] AST 240(H) 5 - 34 U/L 08/08/2022 2:15 PM T [facility] Albumin/Globulin Ratio 1.3 1.1 - 2.3 08/08/2022 2:15 PM CDT [facility] Blood BLOOD SPECIMEN / Unknown Venipuncture / Unknown 08/08/2022 1:36 PM CDT 08/08/2022 1:40 PM CDT An Bertrand MD LAB - CHEMISTRY ORDE ALAN [facility] [address] [place] [address], [facility] [phone] * LIPASE BLOOD (08/08/2022 1:36 PM CDT) Lipase 20 8 - 78 U/L 08/08/2022 2:11 PM CDT [facility] Blood BLOOD SPECIMEN / Unknown Venipuncture / Unknown 08/08/2022 1:36 PM CDT 08/08/2022 1:40 PM CDT [facility] - 08/08/2022 2:11 PM CDT Lipase results from the Dixon Alinity analyzer may not be comparable with other methodologies. An Bertrand MD LAB - CHEMISTRY [place] [address] [address], [place] [phone] * AMYLASE BLOOD (08/08/2022 1:36 PM CDT) Pathologist [facility] Amylase 42 25 - 125 U/L 08/08/2022 2:11 PM CDT [facility] Blood BLOOD SPECIMEN / Unknown Venipuncture / Unknown 08/08/2022 1:36 PM CDT 08/08/2022 1:40 PM CDT An Bertrand MD LAB - CHEMISTRY [place] [address] [address], [place] [phone] * ALCOHOL ETHYL BLOOD (08/08/2022 1:36 PM CDT) Ethanol (mg/dL) <10 <10 mg/dL 2:11 PM CDT [facility] Ethanol Calculated (g/dL) <0.010 <=0.010 g/dL 08/08/2022 2:11 PM CDT [facility] Blood BLOOD SPECIMEN / Unknown Venipuncture / Unknown 08/08/2022 1:36 PM CDT 08/08/2022 1:40 PM CDT Narrative [facility] - 08/08/2022 2:11 PM CDT Ethanol Interp <10: None Detected. Depression of DAIRY FARM OPERATOR: >100 mg/dl Potentially Critical: >250 mg/dl Potentially Fatal >400 mg/dl Ethanol in the patient's blood will contribute to the osmolar gap. Ethanol's contribution to the osmolar gap can be estimated by dividing the concentration of ethanol in mg/dL by 4.6. This test is for clinical use only and does not equal a NESSA for legal purposes. An Bertrand MD LAB - CHEMISTRY [place] [facility] Organization Address City/State/ZIP Co de Phone Number [facility] [address] [place] [address], [facility] [phone] Care Teams Formation Testing Operator Relationship Specialty Start Date End Date Farhad Bridges MD PCP - General Family Medicine 11/29/18 Tiffany Aguirre MD [address] [phone] Cardiovascular Disease 11/29/18
--- OUTSIDE RECORDS SUMMARY | 2024-04-05 18:45 | XMS_ITS | Referral Summary ---
Author Organization [facility] Address [address] [place] [address] Care Team Providers Care Professor Of Biblical Studies Name Role Phone Farhad Bridges MD Primary Care Provider [phone] Danya Aguirre Unavailable Source Comments [facility],non-owned Affiliates and Associated Physician Practices is amultiple site organization consisting of ambulatory clinics and hospital sitesin [place], [place], [place] and [place]. This disclosure is being madepursuant to the Care Everywhere program and may not contain all information available regarding this patient. Last updated 17.[facility] Allergies No known active allergies Medications * [...] and heating? Not hard at all 08/08/2022 [facility] [place] of Occupat ional Health - Occupational Stress [...] place to sleep or slept in a alf (including now)? No 08/08/2022 Sex and Gender [...] Mass Index 29 08/08/2022 1:26 PM CDT Functional Status Functional Status Response Date of Assess ment Is person deaf or have serious hearing difficult y? No 08/08/2022 Is person blind or have serious difficulty seein g? No 08/08/2022 Does person have serious dif ficulty walking/climbing stairs? No 08/08/2022 Does person have difficulty dressing/bathing? No 08/08/2022 Does person have difficulty doing errands alone? No 08/08/2022 Cognitive Status Response Date of Assessm ent Does person have difficulty concentrating/remembering/making decisions? No 08/08/2022 Plan of Treatment Not on file Advance Directives * Full Code (Latest Code Status on File) Date Activated Date Inactivated Comments 08/08/2022 4:34 PM 08/23/2022 4:44 PM Care Teams Professor Of Biblical Studies Relationship Specialty Start Date End Date Farhad Bridges MD PCP - General Family Medicine 11/29/18 Tiffany Aguirre MD [address] [address] Cardiovascular Disease 11/29/18
--- OUTSIDE RECORDS SUMMARY | 2024-04-05 18:45 | XMS_ITS | CONTINUITY OF CARE DOCUMENT ---
Author Name catie misaelantonio Address Unknown Organization [facility] Address [address] [place] [address] Phone [phone] Care Team Providers Care Box Coverer Hand Name Role Phone Fernandez GILLESPIE, Abner Unavailable YUMI XIE MD Unavailable YUMI XIE MD Unavailable [phone] PROBLEMS Condition Status Date Provider Notes Acute upper respiratory infection active [place] HTN essential active YUMI XIE MD Other and unspecified hyperlipidemia active YUMI XIE MD GERD active YUMI XIE MD Alopecia active YUMI XIE MD [facility] Gout active YUMI XIE MD ENCOUNTERS Date Type Provider Location Encounter Diag nosis 4 - 7 In-person encounter Office Visit YUMI XIE MD [facility] 7 - 7 In-person encounter Office Visit YUMI XIE MD [facility] 8 - 7 In-person encounter Office Visit YUMI XIE MD [facility] 2 - 7 In-person encounter Office Visit YUMI XIE MD [facility] 5 - 4 In-person encounter Office Visit YUMI XIE MD [facility] 7 - 4 In-person encounter Office Visit YUMI XIE MD [facility] 0 - 4 In-person encounter Office Visit YUMI XIE MD [facility] 5 - 6 In-person encounter Office Visit YUMI XIE MD [facility] 1 - 1 In-person encounter Office Visit YUMI XIE MD [facility] 3 - 4 In-person encounter Office Visit YUMI XIE MD [facility] 2 - 9 In-person encounter Office Visit YUMI XIE MD [facility] 0 - 5 In-person encounter Office Visit YUMI XIE MD [facility] 0 - 6 In-person encounter Office Visit YUMI XIE MD [facility] 0 - 7 In-person encounter Office Visit YUMI XIE MD [facility] 0 - 9 In-person encounter Office Visit YUMI XIE MD [facility] 9 - 7 In-person encounter Office Visit YUMI XIE MD [facility] 6 - 2 In-person encounter Office Visit YUMI XIE MD [facility] 5 - 2 In-person encounter Office Visit YUMI XIE MD [facility] 1 - 4 In-person encounter Office Visit YUMI XIE MD [facility] 6 - 3 In-person encounter Office Visit YUMI XIE MD [facility] 9 - 3 In-person encounter Office Visit YUMI XIE MD [facility] 6 - 5 In-person encounter Office Visit YUMI XIE MD [facility] 7 - 4 In-person encounter Office Visit YUMI XIE MD [facility] 4 - 3 In-person encounter Office Visit YUMI XIE MD [facility] 4 - 2 In-person encounter Office Visit YUMI XIE MD [facility] 3 - 0 In-person encounter Office Visit YUMI XIE MD [facility] 2 - 4 In-person encounter Office Visit YUMI XIE MD [facility] 0 - 2 In-person encounter Office Visit YUMI XIE MD [facility] 1 - 7 In-person encounter Office Visit YUMI XIE MD [facility] 1 - 3 In-person encounter Office Visit YUMI XIE MD [facility] 9 - 6 In-person encounter Office Visit YUMI XIE MD [facility] 8 - 3 In-person encounter Office Visit YUMI XIE MD [facility] 3 - 8 In-person encounter Office Visit YUMI XIE MD [facility] 9 - 8 In-person encounter Office Visit YUMI XIE MD [facility] 3 - 6 In-person encounter Office Visit YUMI XIE MD [facility] 6 - 8 In-person encounter Office Visit [facility] 8 - 2 In-person encounter Office Visit YUMI XIE MD [facility] 8 - 2 In-person encounter Office Visit YUMI XIE MD [facility] 0 - 9 In-person encounter Office Visit YUMI XIE MD [facility] 9 - 4 In-person encounter Office Visit [facility] 6 - 2 In-person encounter Office Visit YUMI XIE MD [facility] HTN essentialOther and unspecified hyperlipidemiaGERDAlopeciaGout 3 - 2 In-person encounter Office Visit YUMI XIE MD [facility] 7 - 2 In-person encounter Office Visit [facility] 0 - 3 In-person encounter Office Visit [facility] 3 - 7 In-person encounter Office Visit [facility] 4 - 8 In-person encounter Office Visit [facility] 6 - 9 In-person encounter Office Visit [facility] 3 - 0 In-person encounter Office Visit [facility] 1 - 8 In-person encounter Office Visit [facility] 9 - 2 In-person encounter Office Visit [facility] Office 2 - 7 In-person encounter Office Visit [facility] 8 - 0 In-person encounter Office Visit [facility] 8 - 1 In-person encounter Office Visit [facility] RESULTS Date Observation Value Provider Reference Range Interpretation Location 2 thyroid stimulating hormone, serum 3.190 ??IU/ML [facility] 0.270 - 4.200 2 very low density lipoproteins 67.4 mg/dL [facility] 5.0 - 40.0 High 2 LDL/HDL (low-density lipoprotein/high-den sity lipoprotein) ratio 1.7 RATIO [facility] - 2 lipoprotein, beta, serum, point, quantitative, calculated 102.6 (?) [facility] 0.0 - 100.0 High 2 HDL cholesterol, serum 61.0 mg/dL [facility] 35.0 - 55.0 High 2 cholesterol, serum 231.0 mg/dL [facility] 0.0 - 200.0 High 2 triglyceride, serum, fasting 337.0 mg/dL [facility] 0.0 - 150.0 High 2 anion gap, serum 12.1 [facility] - 2 albumin/globulin ratio, serum 1.9 g/dL [facility] 1.1 - 2.5 2 globulin, serum 2.4 [facility] 2.3 - 3.8 2 urea nitrogen/creatinine ratio, serum 14.4 [facility] - 2 Estimated Glomerular Filtration Rate (calc) 91.8 (?) [facility] 59.0 - 2 chloride, serum 99.9 mmol/L [facility] 98.0 - 107.0 2 potassium, serum 4.5 mmol/L [facility] 3.5 - 5.1 2 sodium, serum 143.0 mmol/L [facility] 136.0 - 145.0 2 creatinine, serum 0.9 mg/dL [facility] 0.7 - 1.2 2 carbon dioxide, venous blood 31.0 mmol/L [facility] 22.0 - 29.0 High 2 albumin, serum 4.6 g/dL [facility] 3.5 - 5.2 2 calcium, serum 9.4 mg/dL [facility] 8.6 - 10.2 2 aspartate aminotransferase (SGOT), serum 55.0 1/L [facility] 0.0 - 40.0 High 2 alkaline phosphatase, serum 90.0 1/L [facility] 40.0 - 130.0 2 alanine aminotransferase (SGPT), serum 63.0 1/L [facility] 0.0 - 41.0 High 2 protein, total, serum 7.0 g/dL [facility] 6.6 - 8.7 2 bilirubin, serum, total 0.4 mg/dL [facility] 0.0 - 1.2 2 urea nitrogen, blood 13.0 mg/dL [facility] 6.0 - 20.0 2 blood glucose, random 93.0 mg/dL [facility] 74.0 - 99.0 2 red blood cell distribution width, size density 47.4 fL [facility] - 2 immature granulocytes, percentage of total cells, blood 0.3 % [facility] - 2 nucleated red blood cells as percent of blood leukocytes 0.0 % [facility] - 2 red blood cell (erythrocyte) count, per high power field 0.0 10*3/UL [facility] - 2 eosinophils as percent of blood leukocytes 4.8 % [facility] - 2 neutrophils as percent of blood leukocytes 54.2 % [facility] - 2 Absolute Neutrophils 3.9 CELLS/UL [facility] 1.5 - 7.8 2 basophils as percent of blood leukocytes 1.0 % [facility] - 2 Absolute Basophils 0.1 CELLS/UL [facility] 0.0 - 0.2 2 monocytes as percent of blood leukocytes 8.3 % [facility] - 2 Absolute Monocytes 0.6 CELLS/UL [facility] 0.2 - 1.0 2 lymphocytes as percent of blood leukocytes 31.4 % [facility] - 2 Absolute Lymphocytes 2.3 CELLS/UL [facility] 0.9 - 3.9 2 mean platelet volume 11.9 (?) [facility] - 2 platelet count 195.0 THOUSAND/ UL [facility] 100.0 - 400.0 2 mean corpuscular hemoglobin concentration, RBC 31.6 G/DL [facility] 31.0 - 38.0 2 mean corpuscular hemoglobin, RBC 30.6 pg [facility] 25.0 - 35.0 2 mean corpuscular volume, RBC 96.8 fL [facility] 75.0 - 100.0 2 hematocrit, blood 48.4 % [facility] 35.0 - 55.0 2 hemoglobin, blood 15.3 g/dL [facility] 11.5 - 16.5 2 erythrocyte count, whole blood 5.0 MILLION/U L [facility] 3.5 - 5.5 2 hemoglobin A1C, blood, as % of total hemoglobin 5.3 % [facility] 4.0 - 5.6 4 thyroid stimulating hormone, serum 2.270 u[IU]/mL [facility] 0.450-4.500 4 thyroxine, serum, free 1.06 ng/dL [facility] 0.82-1.77 4 lipoprotein, beta, serum, point, quantitative, calculated 89 mg/dL [facility] 0-99 4 very low density lipoproteins 50 mg/dL [facility] 5-40 High 4 HDL cholesterol, serum 68 mg/dL [facility] >39 4 triglyceride, serum, random 249 mg/dL [facility] 0-149 High 4 cholesterol, serum 207 mg/dL [facility] 100-199 High 4 alanine aminotransferase (SGPT), serum 25 1/L [facility] 0-55 4 aspartate aminotransferase (SGOT), serum 25 1/L [facility] 0-40 4 alkaline phosphatase, serum 57 1/L [facility] 25-150 4 bilirubin, serum, total 0.9 mg/dL [facility] 0.0-1.2 4 albumin/globulin ratio, serum 2.0 [facility] 1.1-2.5 4 globulin, serum 2.3 [facility] 1.5-4.5 4 albumin, serum 4.7 g/dL [facility] 3.5-5.5 4 protein, total, serum 7.0 g/dL [facility] 6.0-8.5 4 calcium, serum 9.9 mg/dL [facility] 8.7-10.2 4 carbon dioxide, venous blood 22 mmol/L [facility] 20-32 4 chloride, serum 103 mmol/L [facility] 97-108 4 potassium, serum 3.9 mmol/L [facility] 3.5-5.2 4 sodium, serum 141 mmol/L [facility] 143-538 9326/07/2 4 urea nitrogen/creatinine ratio, serum 15 [facility] 9-20 4 eGFR if not 86 mL/min/{1 .73_m2} [facility] >59 4 creatinine, serum 0.98 mg/dL [facility] 0.76-1.27 4 urea nitrogen, blood 15 mg/dL [facility] 6-24 4 blood glucose, random 92 mg/dL [facility] 65-99 4 basophil count, absolute 0.0 x10E3/uL [facility] 0.0-0.2 4 Eosinophil Absolute Count 0.3 X10E3/UL [facility] 0.0-0.4 4 monocyte count, blood, automated 0.7 X10E3/UL [facility] 0.1-1.0 4 lymphocyte count, blood, automated 2.6 X10E3/UL [facility] 0.7-4.5 4 Absolute Neutrophils 5.4 X10E3/UL [facility] 1.8-7.8 4 basophils as percent of blood leukocytes 0 % [facility] 0-3 4 eosinophils as percent of blood leukocytes 3 % [facility] 0-7 4 monocytes as percent of blood leukocytes 8 % [facility] 4-13 4 lymphocytes as percent of blood leukocytes 29 % [facility] 14-46 4 neutrophils as percent of blood leukocytes 60 % [facility] 40-74 4 platelet count 270 X10E3/UL [facility] 318-815 9530/07/2 4 red blood cell distribution width 13.5 % [facility] 12.3-15.4 4 mean corpuscular hemoglobin concentration, RBC 34.7 G/DL [facility] 31.5-35.7 4 mean corpuscular hemoglobin, RBC 30.5 pg [facility] 26.6-33.0 4 mean corpuscular volume, RBC 88 fL [facility] 79-97 4 hematocrit, blood 43.8 % [facility] 37.5-51.0 4 hemoglobin, blood 15.2 g/dL [facility] 12.6-17.7 4 erythrocyte (RBC) count 4.99 X10E6/UL [facility] 4.14-5.80 4 leukocyte count, blood 9.1 X10E3/UL [facility] 4.0-10.5 8 thyroxine, serum, total 6.5 ug/dL [facility] (4.5-12.0) 8 thyroid stimulating hormone, serum 1.370 u[IU]/mL [facility] (0.450-4.500) 8 lipoprotein, beta, serum, point, quantitative, calculated 98 mg/dL [facility] (0-99) 8 very low density lipoproteins 37 mg/dL [facility] (5-40) 8 HDL cholesterol, serum 57 mg/dL [facility] (>39) 8 triglyceride, serum, random 186 mg/dL [facility] (0-149) High 8 cholesterol, serum 192 mg/dL [facility] (100-199) 8 alanine aminotransferase (SGPT), serum 18 1/L [facility] (0-55) 8 aspartate aminotransferase (SGOT), serum 17 1/L [facility] (0-40) 8 alkaline phosphatase, serum 55 1/L [facility] (25-150) 8 bilirubin, serum, total 0.4 mg/dL [facility] (0.0-1.2) 8 albumin/globulin ratio, serum 2.0 [facility] (1.1-2.5) 8 globulin, serum 2.2 [facility] (1.5-4.5) 8 albumin, serum 4.4 g/dL [facility] (3.5-5.5) 8 protein, total, serum 6.6 g/dL [facility] (6.0-8.5) 8 calcium, serum 9.2 mg/dL [facility] (8.7-10.2) 8 carbon dioxide, venous blood 25 mmol/L [facility] (20-32) 8 chloride, serum 100 mmol/L [facility] (97-108) 8 potassium, serum 4.3 mmol/L [facility] (3.5-5.2) 8 sodium, serum 140 mmol/L [facility] (135-145) 8 urea nitrogen/creatinine ratio, serum 11 [facility] (9-20) 8 eGFR if 115 mL/min/{1 .73_m2} [facility] ( >59) 8 eGFR if not 100 mL/min/{1 .73_m2} [facility] ( >59) 8 creatinine, serum 0.83 mg/dL [facility] (0.76-1.27) 8 urea nitrogen, blood 9 mg/dL [facility] (6-24) 8 blood glucose, random 75 mg/dL [facility] (65-99) 8 basophil count, absolute 0.1 x10E3/uL [facility] (0.0-0.2) 8 Eosinophil Absolute Count 0.3 X10E3/UL [facility] (0.0-0.4) 8 monocyte count, blood, automated 0.5 X10E3/UL [facility] (0.1-1.0) 8 lymphocyte count, blood, automated 2.0 X10E3/UL [facility] (0.7-4.5) 8 Absolute Neutrophils 2.5 X10E3/UL [facility] (1.8-7.8) 8 basophils as percent of blood leukocytes 1 % [facility] (0-3) 8 eosinophils as percent of blood leukocytes 5 % [facility] (0-7) 8 monocytes as percent of blood leukocytes 10 % [facility] (4-13) 8 lymphocytes as percent of blood leukocytes 38 % [facility] (14-46) 8 neutrophils as percent of blood leukocytes 46 % [facility] (40-74) 8 platelet count 260 X10E3/UL [facility] (140-415) 8 red blood cell distribution width 13.3 % [facility] (11.7-15.0) 8 mean corpuscular hemoglobin concentration, RBC 32.8 G/DL [facility] (32.0-36.0) 8 mean corpuscular hemoglobin, RBC 29.8 pg [facility] (27.0-34.0) 8 mean corpuscular volume, RBC 91 fL [facility] (80-98) 8 hematocrit, blood 47.2 % [facility] (36.0-50.0) 8 hemoglobin, blood 15.5 g/dL [facility] (12.5-17.0) 8 erythrocyte (RBC) count 5.20 X10E6/UL [facility] (4.10-5.60) 8 leukocyte count, blood 5.4 X10E3/UL [facility] (4.0-10.5) 0 thyroxine, serum, total 6.9 ug/dL [facility] (4.5-12.0) 0 thyroid stimulating hormone, serum 2.200 u[IU]/mL [facility] (0.450-4.500) 0 lipoprotein, beta, serum, point, quantitative, calculated 91 mg/dL [facility] (0-99) 0 very low density lipoproteins 53 mg/dL [facility] (5-40) High 0 HDL cholesterol, serum 57 mg/dL [facility] (>39) 0 triglyceride, serum, random 263 mg/dL [facility] (0-149) High 0 cholesterol, serum 201 mg/dL [facility] (100-199) High 0 alanine aminotransferase (SGPT), serum 18 1/L [facility] (0-55) 0 aspartate aminotransferase (SGOT), serum 18 1/L [facility] (0-40) 0 alkaline phosphatase, serum 65 1/L [facility] (25-150) 0 bilirubin, serum, total 0.4 mg/dL [facility] (0.0-1.2) 0 albumin/globulin ratio, serum 1.6 [facility] (1.1-2.5) 0 globulin, serum 2.7 [facility] (1.5-4.5) 0 albumin, serum 4.3 g/dL [facility] (3.5-5.5) 0 protein, total, serum 7.0 g/dL [facility] (6.0-8.5) 0 calcium, serum 9.3 mg/dL [facility] (8.7-10.2) 0 carbon dioxide, venous blood 27 mmol/L [facility] (20-32) 0 chloride, serum 102 mmol/L [facility] (97-108) 0 potassium, serum 4.2 mmol/L [facility] (3.5-5.2) 0 sodium, serum 142 mmol/L [facility] (135-145) 0 urea nitrogen/creatinine ratio, serum 10 [facility] (9-20) 0 estimated glomerular filtration rate >59 mL/min/1. 73 [facility] ( >59) 0 creatinine, serum 0.91 mg/dL [facility] (0.76-1.27) 0 urea nitrogen, blood 9 mg/dL [facility] (6-24) 0 blood glucose, random 89 mg/dL [facility] (65-99) 0 basophil count, absolute 0.0 x10E3/uL [facility] (0.0-0.2) 0 Eosinophil Absolute Count 0.3 X10E3/UL [facility] (0.0-0.4) 0 monocyte count, blood, automated 0.6 X10E3/UL [facility] (0.1-1.0) 0 lymphocyte count, blood, automated 2.2 X10E3/UL [facility] (0.7-4.5) 0 Absolute Neutrophils 3.2 X10E3/UL [facility] (1.8-7.8) 0 basophils as percent of blood leukocytes 1 % [facility] (0-3) 0 eosinophils as percent of blood leukocytes 4 % [facility] (0-7) 0 monocytes as percent of blood leukocytes 9 % [facility] (4-13) 0 lymphocytes as percent of blood leukocytes 35 % [facility] (14-46) 0 neutrophils as percent of blood leukocytes 51 % [facility] (40-74) 0 platelet count 300 X10E3/UL [facility] (140-415) 0 red blood cell distribution width 13.6 % [facility] (11.7-15.0) 0 mean corpuscular hemoglobin concentration, RBC 32.8 G/DL [facility] (32.0-36.0) 0 mean corpuscular hemoglobin, RBC 29.6 pg [facility] (27.0-34.0) 0 mean corpuscular volume, RBC 90 fL [facility] (80-98) 0 hematocrit, blood 47.3 % [facility] (36.0-50.0) 0 hemoglobin, blood 15.5 g/dL [facility] (12.5-17.0) 0 erythrocyte (RBC) count 5.24 X10E6/UL [facility] (4.10-5.60) 0 leukocyte count, blood 6.3 X10E3/UL [facility] (4.0-10.5) HISTORY OF MEDICATION USE Medication Status Instructions Dates Provider Indications Com ments FENOFIBRATE 145 MG ORAL TABLET active take one pill a day 0 Farrah Stephen HYDRALAZINE HCL 50 MG ORAL TABLET active take one pill twice a day 0 Farrah Stephen DIAZEPAM 10 MG ORAL TABLET active ONE TABLET IN THE EVENING NEEDED 8 YUMI XIE MD ZOLOFT 50 MG ORAL TABLET active take one pill a day 8 Farrah Stephen DIOVAN 320 MG ORAL TABLET active take one pill a day 1 Farrah Stephen ALLOPURINOL 300 MG ORAL TABLET active ONE TABLET DAILY 6 YUMI XIE MD AMBIEN 10 MG ORAL TABLET active ONE TABLET IN THE EVENING NEEDED 6 YUMI XIE MD CIALIS 20 MG ORAL TABLET active ONE TABLET DAILY NEEDED 6 YUMI XIE MD OMEPRAZOLE 20 MG ORAL CAPSULE DELAYED RELEASE active ONE TAB. DAILY 6 YUMI XIE MD LISINOPRIL 40 MG ORAL TABLET active ONE TABLET TWICE DAILY 6 YUMI XIE MD SIMVASTATIN 20 MG ORAL TABLET active ONE TABLET DAILY 6 YUMI XIE MD INSURANCE PROVIDERS Payer name Policy type / Coverage type [place] red democr[employer] ID [facility] [id number] 1 [facility] [id number] TREATMENT PLAN Date Name CULTURE, SPUTUM/LOWE R RESPIRATORY TESTOSTERONE, TOTAL HEMOGLOBIN A1c TSH, 3RD GENERATION W/REFLEX TO FT4 LIPID PANEL CBC (INCLUDES DIFF/P LT) COMPREHENSIVE METABO LIC PANEL W/EGFR
--- OUTSIDE RECORDS SUMMARY | 2024-04-05 18:45 | XMS_ITS | Referral Summary ---
Author Organization [facility] Address [address] [place] [address] Phone Care Team Providers Care Quantitative Analyst Marketing Name Role Phone Farhad Bridges MD Primary Care Provider [phone] Dwight Aguirre MD Unavailable Joshua Fung MD Unavailable [phone] Migue Chaudhari MD Unavailable [phone] Allergies No known active allergies Medications diazePAM (VALIUM) 10 mg tablet Take 1 tablet by mouth daily 5 8 Active zolpidem (AMBIEN) 10 mg tabletIndications:Sl eep-Onset Insomnia Take 1 tablet by mouth nightly. 5 8 Active fenofibrate nanocrystallized (TRICOR,TRIGLIDE) 145 mg tablet Take 145 mg by mouth daily. Active allopurinol (ZYLOPRIM) 300 mg tablet Take 300 mg by mouth daily. Active amLODIPine (NORVASC) 10 mg tablet Take 10 mg by mouth daily. Active hydrALAZINE (APRESOLINE) 50 mg tabletIndications:hy pertension Take 50 mg by mouth 2 (two) times a day. Active simvastatin (ZOCOR) 20 mg tablet Take 20 mg by mouth daily. Active sertraline (ZOLOFT) 50 mg tablet Take 50 mg by mouth daily. Active omeprazole (PriLOSEC) 20 mg capsule Take 20 mg by mouth daily Active tamsulosin (FLOMAX) 0.4 mg extended release capsule Take 1 capsule (0.4 mg total) by mouth 2 (two) times a day. 90 capsule 3 9 Active albuterol HFA (PROVENTIL HFA,VENTOLIN HFA,PROAIR HFA) 90 mcg/actuation inhaler INL 1 PUFF PO Q 4 H PRN 5 9 Active tadalafil (CIALIS) 20 mg tablet Take 4 mg by mouth daily 9 Active Toprol XL 100 mg 24 hr tablet 9 Active sildenafiL, pulm.hypertension, (REVATIO) 20 mg tablet TAKE 1 TO 5 TABLETS BY MOUTH ONCE DAILY 9 Active amitriptyline (ELAVIL) 10 mg tablet 0 Active benzonatate (TESSALON) 200 mg capsule TK ONE C PO TID PRN COU 0 Active cefdinir (OMNICEF) 300 mg capsule TK ONE C PO Q 12 H FOR 7 DAYS 0 Active Active Problems Problem Noted Date Diagnosed Date Incontinence of feces with fecal urgency 020 Prostate cancer 11/26/2017 Cancer Staging:Clinical stage from 11/26/2017:Stage IIA(cT2a, cN0, cM0, PSA: 10.1, Grade Group: 1) - Signed by Beatriz Hunt MD on 11/26/2017 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 Immunizations Immunization Administration Dates Next Due Influenza, Quadrivalent, Spl it, Preservative Free, Intradermal 11/27/2015 Social History Tobacco Use Types Packs/Day Years Used Date Smoking Tobacco: Former Cigarettes 0.5 3 Smokeless Tobacco: Never Comments:last smoked 2012 Alcohol Use Standard Drinks/Week Comments Yes 3 (1 standard drink = 0.6 oz pur e alcohol) 2 beers/ night, 2 shot weekend Personal Safety Answer Date Recorded Getting School Help Needed Not on file 04/23 Sex and Gender Information Value Date Recorded Sex Assigned at Not on file 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 Gender Identity Not on file Sexual Orientation Not on file Last Filed Vital Signs Vital Sign Reading Time Taken Comments Blood Pressure 149/105 04/18/2019 1:51 PM CDT pt states that he feels fine Pulse 98 04/18/2019 1:51 PM CDT Temperature 36.9 C (98.5 F) 04/18/2019 1:51 PM CDT Respiratory Rate 22 02/24/2019 1:59 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 Oxygen Saturation 96% 02/24/2019 1:5 9 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 Inhaled Oxygen Concentration - - Weight 88.9 kg (196 lb) 04/18/2019 1:51 PM CDT Height 172.7 cm (5' 8 ) 04/18/2019 1:51 PM CDT Body Mass Index 29.8 04/18/2019 1:51 PM CDT Plan of Treatment Not on file Insurance ANTHEM ACCESS CHOICE Member Subscriber Plan / Payer ( fective 2018-Present) Name:Heladio Cantu Relation to Subscriber:Self Name:Heladio Cantu Payer ID:[id number] (IC) Type:[facility] [employer] Address: [place] [address] ANTHEM ACCESS Member Subscriber Plan / Payer ( fective 2017-Present) Name:Heladio Cantu Relation to Subscriber:Self Name:HELADIO CANTU Payer ID:[id number] (NAIC) Type:[employer] Address: [address] [place] [address] ANTHEM ACCESS CHOICE Care Teams Quantitative Analyst Marketing Relationship Specialty Start Date End Date Farhad Bridges MD [address] [address] PCP - General Family Medicine 03/31/19 Dwight Aguirre MD [address] [address] Consulting Physician Urology 04/18/19 Joshua Fung MD [address] [address] Consulting Physician Urology 04/18/19 Migue Chaudhari MD [address] [address] Consulting Physician Colon and Rectal Surgery 04/24/19
--- OUTSIDE RECORDS SUMMARY | 2024-04-05 18:45 | XMS_ITS ---
Author Organization [facility] Address [address] [place] [address] Phone Care Team Providers Care Rv Service Technician Name Role Phone Farhad Bridges MD Primary Care Provider [phone] Dwight Aguirre MD Unavailable Joshua Fung MD Unavailable [phone] Migue Chaudhari MD Unavailable [phone] Active Problems Problem Noted Date Diagnosed Date Incontinence of feces with fecal urgency 020 Prostate cancer 11/26/2017 Cancer Staging:Clinical stage from 11/26/2017:Stage IIA(cT2a, cN0, cM0, PSA: 10.1, Grade Group: 1) - Signed by Beatriz Hunt MD on 11/26/2017 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 Past Treatment and Therapy Plans No past plan information found. Radiation Treatments * Course C1 PROSTATE 2018 01/05/2018 - 02/15/2018 Treatment Period Energy Fraction Dose Fractions Total Dose Plans Planned PROST:1 01/05/2018 - 02/15/2018 250 28 / 7,000 Reference Points Delivered PROSTATE DPV 01/05/2018 - 02/15/2018 7,000
--- OUTSIDE RECORDS SUMMARY | 2024-04-05 18:45 | XMS_ITS | Clinical Summary ---
Author Organization [facility] Address [address] [place] [address] Phone Care Team Providers Care Data Mining Analyst Name Role Phone Farhad Bridges MD Primary Care Provider [phone] Dwight Aguirre MD Unavailable Joshua Fung MD Unavailable [phone] Migue Chaudhari MD Unavailable [phone] Allergies No known active allergies Medications diazePAM [...] Quadrivalent, Spl it, Preservative Free, Intradermal 11/27/2015 Surgical History Surgery Date Site/Laterality Comments COLONOSCOPY 02/09/2014 - 02/08/2015 VASECTOMY PROSTATE BIOPSY 10/10/2017 - 11/08/2017 HEMORRHOID SURGERY 02/09/1975 - 02/09/1976 Medical History Medical History Date Comments Hypertension Hyperlipidemia Depression Cancer (CMS/HCC) (HCC) prostate GERD (gastroesophageal reflux disease) Urinary tract infection Arthritis Gout Anxiety COPD (chronic obstructive pulmonary disease) (HC C) 2018 Incontinence of feces with fecal urgency 04/24/19 20 Family History Medical History Relation Name Comments Schizophrenia Brother 1 bill Schizophrenia Brother 2 daniel Cancer Daughter 1 Maricarmen colon No Known Problems Daughter 2 Melania Alzheimer's disease Father COPD Mother Diabetes Mother Heart attack Mother Kidney disease Mother Vision loss Mother Heart disease Paternal Grandfather Drug abuse Son 1 Steven Schizophrenia Son 1 Steven No Known Problems Son 2 Aidan Relation Name Status Comments Brother 1 bill Alive Brother 2 daniel Alive Daughter 1 Maricarmen Daughter 2 Melania Alive Father (Age age 42) Maternal Grandfather Maternal Grandmother Mother Alive Paternal Grandfather Paternal Grandmother Son 1 Steven Alive Son 2 Aidan Alive Social History Tobacco Use Types Packs/Day Years [...] on file Legal 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 Gender Identity Not on file Sexual Orientation Not on file Obstetrics History Last Filed Vital Signs Vital Sign Reading Time Taken Comments Blood Pressure 149/105 04/18/2019 1:51 PM CDT pt states that he feels fine Pulse 98 04/18/2019 1:51 PM CDT Temperature 36.9 C (98.5 F) 04/18/2019 1:51 PM CDT Respiratory Rate 22 02/24/2019 1:59 PM LOWER IN SUPERVISOR Oxygen Saturation 96% 02/24/2019 1:5 9 PM LOWER IN SUPERVISOR Inhaled Oxygen Concentration - - Weight 88.9 kg (196 lb) 04/18/2019 1:51 PM CDT Height 172.7 cm (5' 8 ) 04/18/2019 1:51 PM CDT Body Mass Index 29.8 04/18/2019 1:51 PM CDT Plan of Treatment Not on file Insurance [employer] ACCESS CHOICE ANTHEM ACCESS ANTHEM ACCESS CHOICE Care Teams Data Mining Analyst Relationship Specialty Start Date End Date Farhad Bridges MD [address] [id number] PCP - General Family Medicine 03/31/19 Dwight Aguirre MD [address] [place] [address] Consulting Physician Urology 04/18/19 Joshua Fung MD [address] [address] Consulting Physician Urology 04/18/19 Migue Chaudhari MD [address] [address] Consulting Physician Colon and Rectal Surgery 04/24/19
[2024-04-05 22:44] LABS: Basophils Absolute Auto 0.1 K/mm3 (0.0-0.1); Basophils Percent Auto 0.5 % (0.2-1.2); Eosinophils Percent Auto 0.2 % (0-4.4); Hematocrit 44.3 % (42.0-52.0); Immature Granulocyte Absolute 0.15 K/mm3 (0.00-0.031); Immature Granulocyte Percent A 0.9 % (0-0.5); Lymphocytes Percent Auto 8.6 % (18.3-44.2); Mean Corpuscular HGB Conc 33.9 g/dl (32-36); Mean Corpuscular Hemoglobin 30.1 pg (26-34); Mean Corpuscular Volume 88.8 fl (80-100); Mean Platelet Volume 10.4 fl (7.4-10.4); Monocytes Absolute Auto 1.3 K/mm3 (0.1-0.6); Monocytes Percent Auto 7.5 % (2.6-8.5); Neutrophils Absolute Auto 14.3 K/mm3 (1.3-6.7); Neutrophils Percent Auto 82.3 % (45.5-73.1); Platelet Count Result 256 k/mm3 (150-375); Red Blood Count 4.99 M/mm3 (4.6-6.20); Red Cell Distribution Width 14.6 % (11.5-14.5); White Blood Count 17.4 K/mm3 (4.5-10.0)
[2024-04-05 22:54] LABS: Alanine Aminotransferase 24 U/L (6-50); Albumin Level 4.4 g/dL (3.5-5.1); Alkaline Phosphatase 52 U/L (38-126); Anion Gap 12 mmol/L (4-12); Aspartate Amino Transferase 30 U/L (17-59); Blood Urea Nitrogen 16 mg/dL (9-20); Calcium 9.5 mg/dL (8.4-10.2); Carbon Dioxide 24 mmol/L (22-30); Chloride 102 mmol/L (98-107); Estimated CRCL calculation 58 ml/min; Estimated Glomerular Filt Rate > 60; Glucose 105 mg/dL (65-110); Potassium 3.9 mmol/L (3.4-5.0); Sodium 138 mmol/L (137-145)
[2024-04-05 22:59] LABS: Partial Thromboplastin Time 25.8 Seconds (22.3-36.8); Prothrombin Time 14.1 Seconds (11.1-14.7)
[2024-04-05 23:06] LABS: NT Pro B Type Natriuretic Pept 73 pg/mL (19.9-100); Troponin I < 0.012 ng/mL (0.000-0.034)
[2024-04-05 23:07] LABS: Add Urine Microscopic? NO; Appearance Urine Clear (Clear); Bilirubin Urine Negative (Negative); Blood Urine Negative (Negative); Color Urine Yellow (Yellow); Glucose Urine UA Negative (Negative); Ketones Urine Negative (Negative); Leukocyte Esterase Ur Negative LEU/UL (Negative); Nitrate Urine Negative (Negative); Protein Urine Negative (Negative); Specific Grav Ur 1.013 (1.001-1.035); Urobilinogen Urine 0.2 mg/dL (<2.0); pH Urine 8.5 (5.0-9.0)
[2024-04-05 23:21] LABS: Influenza A QL RT-PCR Negative (Negative); Influenza B QL RT-PCR Negative (Negative); RSV RNA, RT-PCR Negative (Negative); SARS-CoV-2 RNA PCR Negative (Negative)
[2024-04-06] VITALS (7 sets, daily range): BP systolic 126–130; BP diastolic 71–84; PULSE 83–98; RESP 24–36; TEMP 36.9; O2SAT 96–99
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
[2024-04-06] MEDS: AZITHROMYCIN 250 MG TABLET 500 MG PO (03:46)
[2024-04-06] MEDS: AMOXICILLIN/CLAVULANATE K 875-125 MG TAB 1 TABLET PO (03:46)
[2024-04-06] MEDS: ALBUTEROL SULFATE NEB 2.5 MG/3 ML INH 5 MG INHALATION (04:02)
[2024-04-06] MEDS: ACETAMINOPHEN 500 MG TABLET 1000 MG PO (04:38)
--- OUTSIDE RECORDS SUMMARY | 2024-04-06 04:48 | XMS_ITS | Referral Summary ---
Author Organization [facility] Address [address] [place] [address] Care Team Providers Care Dyer And Washer Name Role Phone Farhad Bridges MD Primary Care Provider [phone] Danya Aguirre Unavailable Source Comments [facility],non-owned Affiliates and Associated Physician Practices is amultiple site organization consisting of ambulatory clinics and hospital sitesin [place], [place], [place] and [place]. This disclosure is being madepursuant to the Care Everywhere program and may not contain all information available regarding this patient. Last updated 17.[facility] Allergies No known active allergies Medications * [...] and heating? Not hard at all 08/08/2022 [facility] - Occupational Stress [...] place to sleep or slept in a jail (including now)? No 08/08/2022 Sex and Gender [...] 4:34 PM 08/23/2022 4:44 PM Care Teams Dyer And Washer Relationship Specialty Start Date End Date Farhad Bridges MD PCP - General Family Medicine 11/29/18 Tiffany Aguirre MD [address] [address] Cardiovascular Disease 11/29/18
--- OUTSIDE RECORDS SUMMARY | 2024-04-06 04:48 | XMS_ITS ---
Author Organization [facility] Address [address] [place] [address] Phone Care Team Providers Care Professor Of Anthropology Name Role Phone Farhad Bridges MD Primary Care Provider [phone] Dwight Aguirre MD Unavailable Joshua Fung MD Unavailable [phone] Migue Chaudhari MD Unavailable [phone] Active Problems Problem Noted Date Diagnosed Date [...]
--- OUTSIDE RECORDS SUMMARY | 2024-04-06 04:48 | XMS_ITS | Clinical Summary ---
Author Organization [facility] Address [address] [place] [address] Care Team Providers Care Body Piercer Name Role Phone Farhad Bridges MD Primary Care Provider [phone] Danya Aguirre Unavailable Source Comments [facility],non-owned Affiliates and Associated Physician Practices is amultiple site organization consisting of ambulatory clinics and hospital sitesin [place], [place], [place]. This disclosure is being madepursuant to the Care Everywhere program and may not contain all information available regarding this patient. Last updated 17.[facility] Allergies No known active allergies Medications * [...] and heating? Not hard at all 08/08/2022 [facility] - Occupational Stress [...] place to sleep or slept in a long-term (including now)? No 08/08/2022 Sex and Gender [...] 4:34 PM 08/23/2022 4:44 PM Care Teams Body Piercer Relationship Specialty Start Date End Date Farhad Bridges MD PCP - General Family Medicine 11/29/18 Tiffany Aguirre MD [address] [address] Cardiovascular Disease 11/29/18
--- OUTSIDE RECORDS SUMMARY | 2024-04-06 04:48 | XMS_ITS | Referral Summary ---
Author Organization [facility] Address [address] [place] [address] Phone Care Team Providers Care Maple Syrup Maker Name Role Phone Farhad Bridges MD Primary Care Provider [phone] Dwight Aguirre MD Unavailable Joshua Fung MD Unavailable [phone] Migue Chaudhari MD Unavailable [phone] Allergies No known active allergies Medications diazePAM [...] on file Legal Sex Male 8:56 PM CASH APPLICATIONS SPECIALIST Gender Identity Not on file Sexual Orientation Not on file Last Filed Vital Signs Vital Sign Reading Time Taken Comments Blood Pressure 149/105 04/18/2019 1:51 PM CDT pt states that he feels fine Pulse 98 04/18/2019 1:51 PM CDT Temperature 36.9 C (98.5 F) 04/18/2019 1:51 PM CDT Respiratory Rate 22 02/24/2019 1:59 PM CASH APPLICATIONS SPECIALIST Oxygen Saturation 96% 02/24/2019 1:5 9 PM CASH APPLICATIONS SPECIALIST Inhaled Oxygen Concentration - - Weight 88.9 kg (196 lb) 04/18/2019 1:51 PM CDT Height 172.7 cm (5' 8 ) 04/18/2019 1:51 PM CDT Body Mass Index 29.8 04/18/2019 1:51 PM CDT Plan of Treatment Not on file Insurance ANTHEM ACCESS CHOICE ANTHEM ACCESS ANTHEM ACCESS CHOICE Care Teams Maple Syrup Maker Relationship Specialty Start Date End Date Farhad Bridges MD [address] [address] PCP - General Family Medicine 03/31/19 Dwight Aguirre MD [address] [address] Consulting Physician Urology 04/18/19 Joshua Fung MD [address] [address] Consulting Physician Urology 04/18/19 Migue Chaudhari MD [address] [address] Consulting Physician Colon and Rectal Surgery 04/24/19
--- OUTSIDE RECORDS SUMMARY | 2024-04-06 04:48 | XMS_ITS | Clinical Summary ---
Author Organization [facility] Address [address] [place] [address] Phone Care Team Providers Care Family Program Specialist Name Role Phone Farhad Bridges MD Primary Care Provider [phone] Dwight Aguirre MD Unavailable Joshua Fung MD Unavailable [phone] Migue Chaudhari MD Unavailable [phone] Allergies No known active allergies Medications diazePAM [...] on file Legal Sex Male 8:56 PM C CONSULTANT Gender Identity Not on file Sexual Orientation Not on file Obstetrics History Last Filed Vital Signs Vital Sign Reading Time Taken Comments Blood Pressure 149/105 04/18/2019 1:51 PM CDT pt states that he feels fine Pulse 98 04/18/2019 1:51 PM CDT Temperature 36.9 C (98.5 F) 04/18/2019 1:51 PM CDT Respiratory Rate 22 02/24/2019 1:59 PM C CONSULTANT Oxygen Saturation 96% 02/24/2019 1:5 9 PM C CONSULTANT Inhaled Oxygen Concentration - - Weight 88.9 kg (196 lb) 04/18/2019 1:51 PM CDT Height 172.7 cm (5' 8 ) 04/18/2019 1:51 PM CDT Body Mass Index 29.8 04/18/2019 1:51 PM CDT Plan of Treatment Not on file Insurance [facility] ACCESS CHOICE ANTHEM ACCESS ANTHEM ACCESS CHOICE Care Teams Family Program Specialist Relationship Specialty Start Date End Date Farhad Bridges MD [address] [id number] PCP - General Family Medicine 03/31/19 Dwight Aguirre MD [address] [place] [address] Consulting Physician Urology 04/18/19 Joshua Fung MD [address] [address] Consulting Physician Urology 04/18/19 Migue Chaudhari MD [address] [address] Consulting Physician Colon and Rectal Surgery 04/24/19
--- OUTSIDE RECORDS SUMMARY | 2024-04-06 04:48 | XMS_ITS | CONTINUITY OF CARE DOCUMENT ---
Author Name catie misaelantonio Address Unknown Organization [facility] Address [address] [place] [address] Phone [phone] Care Team Providers Care Observer Electrical Prospecting Name Role Phone Fernandez GILLESPIE, Abner Unavailable [phone] YUMI XIE MD Unavailable [phone] YUMI XIE MD Unavailable PROBLEMS Condition Status Date Provider Notes Acute [...] In-person encounter Office Visit YUMI XIE MD [facility] 7 - 7 In-person encounter Office Visit YUMI XIE MD [facility] 8 - 7 In-person encounter Office Visit YUMI XIE MD [facility] 2 - 7 In-person encounter Office Visit YUMI XIE MD [facility] 5 - 4 In-person encounter Office Visit YUMI XIE MD [facility] 7 - 4 In-person encounter Office Visit YUMI XIE MD [facility] 0 - 4 In-person encounter Office Visit YUMI XIE MD [facility] 5 - 6 In-person encounter Office Visit YUMI XIE MD [facility] 1 - 1 In-person encounter Office Visit YUMI XIE MD [facility] 3 - 4 In-person encounter Office Visit YUMI XIE MD [facility] 2 - 9 In-person encounter Office Visit YUMI XIE MD [facility] 0 - 5 In-person encounter Office Visit YUMI XIE MD [facility] 0 - 6 In-person encounter Office Visit YUMI XIE MD [facility] 0 - 7 In-person encounter Office Visit YUMI XIE MD [facility] 0 - 9 In-person encounter Office Visit YUMI XIE MD [facility] 9 - 7 In-person encounter Office Visit YUMI XIE MD [facility] 6 - 2 In-person encounter Office Visit YUMI XIE MD [facility] 5 - 2 In-person encounter Office Visit YUMI XIE MD [facility] 1 - 4 In-person encounter Office Visit YUMI XIE MD [facility] 6 - 3 In-person encounter Office Visit YUMI XIE MD [facility] 9 - 3 In-person encounter Office Visit YUMI XIE MD [facility] 6 - 5 In-person encounter Office Visit YUMI XIE MD [facility] 7 - 4 In-person encounter Office Visit YUMI XIE MD [facility] 4 - 3 In-person encounter Office Visit YUMI XIE MD [facility] 4 - 2 In-person encounter Office Visit YUMI XIE MD [facility] 3 - 0 In-person encounter Office Visit YUMI XIE MD [facility] 2 - 4 In-person encounter Office Visit YUMI XIE MD [facility] 0 - 2 In-person encounter Office Visit YUMI XIE MD [facility] 1 - 7 In-person encounter Office Visit YUMI XIE MD [facility] 1 - 3 In-person encounter Office Visit YUMI XIE MD [facility] 9 - 6 In-person encounter Office Visit YUMI XIE MD [facility] 8 - 3 In-person encounter Office Visit YUMI XIE MD [facility] 3 - 8 In-person encounter Office Visit YUMI XIE MD [facility] 9 - 8 In-person encounter Office Visit YUMI XIE MD [facility] 3 - 6 In-person encounter Office Visit YUMI XIE MD [facility] 6 - 8 In-person encounter Office Visit [facility] 8 - 2 In-person encounter Office Visit YUMI XIE MD [facility] 8 - 2 In-person encounter Office Visit YUMI XIE MD [facility] 0 - 9 In-person encounter Office Visit YUMI XIE MD [facility] 9 - 4 In-person encounter Office Visit [facility] 6 - 2 In-person encounter Office Visit YUMI XIE MD [facility] HTN essentialOther and unspecified hyperlipidemiaGERDAlopeciaGout 3 - 2 In-person encounter Office Visit YUMI XIE MD [facility] 7 - 2 In-person encounter Office Visit [facility] 0 - 3 In-person encounter Office Visit [facility] 3 - 7 In-person encounter Office Visit [facility] 4 - 8 In-person encounter Office Visit [facility] 6 - 9 In-person encounter Office Visit [facility] 3 - 0 In-person encounter Office Visit [facility] 1 - 8 In-person encounter Office Visit [facility] 9 - 2 In-person encounter Office Visit Kimberli [facility] Office 2 - 7 In-person encounter Office Visit [facility] 8 - 0 In-person encounter Office Visit [facility] 8 - 1 In-person encounter Office Visit Kimberli [facility] Office RESULTS Date Observation Value Provider Reference [...] 1.2 2 urea nitrogen, blood 13.0 mg/dL [facility] 6.0 - 20.0 2 blood glucose, random 93.0 mg/dL [facility] 74.0 - 99.0 2 red blood cell distribution width, size density 47.4 fL [facility] - 2 immature granulocytes, percentage of total cells, blood 0.3 % [facility] - 2 nucleated red blood cells as percent of blood leukocytes 0.0 % [facility] - 2 red blood cell (erythrocyte) count, per high power field 0.0 10*3/UL [facility] - 2 eosinophils as percent of blood leukocytes 4.8 % [facility] - 2 neutrophils as percent of blood leukocytes 54.2 % [facility] - 2 Absolute Neutrophils 3.9 CELLS/UL [facility] 1.5 - 7.8 2 basophils as percent of blood leukocytes 1.0 % [facility] - 2 Absolute Basophils 0.1 CELLS/UL [facility] 0.0 - 0.2 2 monocytes as percent of blood leukocytes 8.3 % [facility] - 2 Absolute Monocytes 0.6 CELLS/UL [facility] 0.2 - 1.0 2 lymphocytes as percent of blood leukocytes 31.4 % [facility] - 2 Absolute Lymphocytes 2.3 CELLS/UL [facility] 0.9 - 3.9 2 mean platelet volume 11.9 (?) [facility] - 2 platelet count 195.0 THOUSAND/ UL [...] 3.5-5.2 4 sodium, serum 141 mmol/L [facility] [phone]/07/2 4 urea nitrogen/creatinine ratio, serum 15 [facility] [...] 40-74 4 platelet count 270 X10E3/UL [facility] [phone]/07/2 4 red blood cell distribution width 13.5 [...] Payer name Policy type / Coverage type [place] [employer] ID [facility] [id number] [address] [facility] [id number] TREATMENT PLAN Date Name CULTURE, SPUTUM/LOWE R RESPIRATORY TESTOSTERONE, TOTAL HEMOGLOBIN A1c TSH, 3RD GENERATION W/REFLEX TO FT4 LIPID PANEL CBC (INCLUDES DIFF/P LT) COMPREHENSIVE METABO LIC PANEL W/EGFR
--- OUTSIDE RECORDS SUMMARY | 2024-04-06 04:49 | XMS_ITS | Patient Health Summary ---
Author Organization [facility] Address [address] [place] [address] Care Team Providers Care Cheesemaker Helper Name Role Phone Farhad Bridges MD Primary Care Provider [phone] Danya Aguirre Unavailable Note from [facility],non-owned Affiliates and Associated Physician Practices is amultiple site organization consisting of ambulatory clinics and hospital sitesin [place], [place], [place] and [place]. This disclosure is being madepursuant to the Care Everywhere program and may not contain all information available regarding this patient. Last updated 17.[facility] Allergies No known active allergies Medications * [...] and heating? Not hard at all 08/08/2022 [facility] of Occupat ional Health - Occupational Stress [...] place to sleep or slept in a usp (including now)? No 08/08/2022 Sex and Gender [...] - 10.5 10 3/uL 08/22/2022 3:29 AM [facility] RBC 3.84(L) 4.30 - 5.70 10 6/uL 08/22/2022 3:29 AM [facility] Hemoglobin 11.0(L) 12.0 - 17.6 g/dL 08/22/2022 3:29 AM [facility] Hematocrit 34.8(L) 35.2 - 51.7 % 08/22/2022 3:29 AM [facility] MCV 90.6 80.7 - 98.3 fL 08/22/2022 3:29 AM [facility] MCH 28.6 26.7 - 34.0 pg 08/22/2022 3:29 AM [facility] MCHC 31.6 30.8 - 35.9 g/dL 08/22/2022 3:29 AM [facility] RDW-SD 49.1 36.0 - 50.0 fL 08/22/2022 3:29 AM [facility] RDW-CV 15.1(H) 11.2 - 14.8 % 08/22/2022 3:29 AM [facility] Platelet Count 448(H) 150 - 400 10 3/uL 08/22/2022 3:29 AM [facility] MPV 10.5 9.4 - 12.9 fL 08/22/2022 3:29 AM [facility] nRBC Absolute 0.00 0 10 3/uL 08/22/2022 3:29 AM [facility] nRBC Auto 0.0 0 /100 WBC 08/22/2022 3:29 AM [facility] Neutrophils % 55.2 35.0 - 70.0 % 08/22/2022 3:29 AM [facility] Lymphocytes % 26.6 20.0 - 43.0 % 08/22/2022 3:29 AM [facility] Monocytes % 8.8 5.0 - 13.0 % 08/22/2022 3:29 AM [facility] Eosinophils % 5.7 0.0 - 6.0 % 08/22/2022 3:29 AM [facility] Basophil % 1.2 0.0 - 2.0 % 08/22/2022 3:29 AM [facility] Neutrophils Absolute 3.76 1.60 - 7.00 10 3/uL 08/22/2022 3:29 AM [facility] Lymphocyte Absolute 1.81 1.10 - 3.90 10 3/uL 08/22/2022 3:29 AM [facility] Monocytes Absolute 0.60 0.26 - 1.07 10 3/uL 08/22/2022 3:29 AM [facility] Eosinophils Absolute 0.39 0.00 - 0.47 10 3/uL 08/22/2022 3:29 AM [facility] Basophils Absolute 0.08 0.00 - 0.08 10 3/uL 08/22/2022 3:29 AM [facility] Immature Granulocytes % 2.5(H) 0.0 - 1.0 % 08/22/2022 3:29 AM [facility] Immature Granulocytes Absolute 0.17 08/22/2022 3:29 AM [facility] Blood BLOOD SPECIMEN / Unknown Lab Venipuncture / Unknown 08/22/2022 2:47 AM CDT 08/22/2022 3:18 AM CDT Lalit Galicia MD LAB - HEMATOLOGY ORD ERABLES [facility] [address] [place] [address], [facility] [phone] * CALCIUM IONIZED WHOLE BLOOD (08/18/2022 2:57 AM CDT) Only the most recent of10 resultswithin the time period is included. [facility] Calcium Ionized 1.19 mmol/L 08/18/2022 3:21 AM [facility] pH 7.43 7.35 - 7.45 pH 08/18/2022 3:21 AM [facility] Ionized Calcium pH Adjusted 1.20 1.19 - 1.34 mmol/L 08/18/2022 3:21 AM [facility] Blood BLOOD SPECIMEN / Unknown Lab Venipuncture / Unknown 08/18/2022 2:57 AM CDT 08/18/2022 3:15 AM CDT Lalit Galicia MD LAB - CHEMISTRY [facility] Organization Address City/State/ZIP Co de Phone Number [facility] [address] [place] [address], [facility] [phone] * (ABNORMAL) DIFFERENTIAL MANUAL (08/18/2022 2:57 AM CDT) Only the most recent of4 resultswithin the time period is included. [facility] WBC (corrected for NRBC) 8.1 10 3/uL 08/18/2022 6:35 AM [facility] Total Cell Count 100 08/18/2022 6:35 AM [facility] Neutrophils Absolute Manual 6.89 1.60 - 7.00 10 3/uL 08/18/2022 6:35 AM [facility] Comment:(BANDS+SEGS) x WBC = NEUT # (ANC) Lymphocyte Absolute Manual 0.81(L) 1.10 - 3.90 10 3/uL 08/18/2022 6:35 AM [facility] Monocytes Absolute Manual 0.24(L) 0.26 - 1.07 10 3/uL 08/18/2022 6:35 AM [facility] Eosinophils Absolute Manual 0.16 0.00 - 0.47 10 3/uL 08/18/2022 6:35 AM [facility] Neutrophil % Manual 85(H) 35 - 70 % 08/18/2022 6:35 AM [facility] Lymphocyte % Manual 10(L) 20 - 43 % 08/18/2022 6:35 AM [facility] Monocytes % Manual 3(L) 5 - 13 % 08/18/2022 6:35 AM [facility] Eosinophils % Manual 2 0 - 6 % 08/18/2022 6:35 AM [facility] Platelet Estimate Adequate Adequate 08/18/2022 6:35 AM [facility] RBC Morphology Normal 08/18/2022 6:35 AM [facility] Blood BLOOD SPECIMEN / Unknown Lab Venipuncture / Unknown 08/18/2022 2:57 AM CDT 08/18/2022 3:19 AM CDT Lalit Galicia MD LAB - HEMATOLOGY ORD ERABLES [facility] [address] [place] [address], [facility] [phone] * (ABNORMAL) BASIC METABOLIC PANEL (CALCIUM TOTAL) (08/18/2022 2:57 AM CDT) Only the most recent of13 resultswithin the time period is included. BUN 17 7 - 26 mg/dL 08/18/2022 3:50 AM [facility] Creatinine 0.89 0.71 - 1.16 mg/dL 08/18/2022 3:50 AM [facility] Sodium 146(H) 136 - 145 mmol/L 08/18/2022 3:50 AM [facility] Potassium 3.5 3.5 - 4.5 mmol/L 08/18/2022 3:50 AM [facility] Chloride 104 98 - 107 mmol/L 08/18/2022 3:50 AM [facility] CO2 29 22 - 29 mmol/L 08/18/2022 3:50 AM [facility] Glucose 110 70 - 115 mg/dL 08/18/2022 3:50 AM [facility] Calcium 9.1 8.4 - 10.2 mg/dL 08/18/2022 3:50 AM [facility] Anion Gap 17 8 - 18 08/18/2022 3:50 AM [facility] BUN/Creatinine Ratio 19 7 - 23 08/18/2022 3:50 AM CDT [facility] Osmolality Calculated 304(H) 270 - 300 mOsm/kg 08/18/2022 3:50 AM CDT [facility] eGFR by CKD-EPI >90 >=90 mL/min/1.7 3 m2 08/18/2022 3:50 AM CDT [facility] Blood BLOOD SPECIMEN / Unknown Lab Venipuncture / Unknown 08/18/2022 2:57 AM CDT 08/18/2022 3:19 AM CDT Lalit Galicia MD LAB - CHEMISTRY [facility] [address] [place] [address], [facility] [phone] * PHOSPHORUS BLOOD (08/18/2022 2:57 AM CDT) Only the most recent of11 resultswithin the time period is included. Phosphorus 2.9 2.8 - 5.1 mg/dL 08/18/2022 3:50 AM CDT [facility] Blood BLOOD SPECIMEN / Unknown Lab Venipuncture / Unknown 08/18/2022 2:57 AM CDT 08/18/2022 3:19 AM CDT Lalit Galicia MD LAB - CHEMISTRY [facility] [address] [place] [id number], [place] [phone] * MAGNESIUM BLOOD (08/18/2022 2:57 AM CDT) Only the most recent of11 resultswithin the time period is included. Magnesium 2.1 1.6 - 2.6 mg/dL 08/18/2022 3:50 AM CDT [facility] Blood BLOOD SPECIMEN / Unknown Lab Venipuncture / Unknown 08/18/2022 2:57 AM CDT 08/18/2022 3:19 AM CDT Lalit Galicia MD LAB - CHEMISTRY [facility] Organization Address City/State/ZIP Co de Phone Number [facility] [place] [address], [facility] [phone] * XR CHEST 1VW PORTABLE (08/17/2022 8:10 AM CDT) Only the most recent of12 resultswithin the time period is included. Anatomical Region Laterality Modality Chest Radiographic Sabina ging 08/17/2022 8:19 AM CDT Narrative 08/17/2022 7:53 PM CDT PROCEDURE: XR CHEST 1VW PORTABLE, DATE/TIME OF EXAM: 08/17/2022 8:10 AM, LOCATION [facility] INDICATION: R06.03: Respiratory distress ADDITIONAL CLINICAL INFORMATION: [...] seen. Report dictated by Shan English MD, (vice president diversity). IJustin have personally reviewed and interpreted this examination/study. > Interpreting Provider: Justin Cintron on 08/17/2022 7:53 PM Procedure Note Justin Cintron MD - 08/17/2022 PROCEDURE: XR CHEST 1VW PORTABLE, DATE/TIME OF EXAM: 08/17/2022 8:10 AM, LOCATION [facility] INDICATION: R06.03: Respiratory distress ADDITIONAL CLINICAL INFORMATION: [...] seen. Report dictated by Shan English MD, (vice president diversity). I, Justin Cintron have personally reviewed and interpreted this examination/study. > Interpreting Provider: Justin Cintron on 08/17/2022 7:53 PM Lalit Galicia MD DIAGNOSTIC IMAGING O RDERABLES * (ABNORMAL) BLOOD GASES ART + COOX PANEL (08/16/2022 11:31 PM CDT) Only the most recent of14 resultswithin the time period is included. pH Arterial 7.46(H) 7.35 - 7.45 pH 08/16/2022 11:51 PM [facility] pO2 Arterial 77(L) 80 - 100 mmHg 08/16/2022 11:51 PM [facility] pCO2 Arterial 35 35 - 45 mmHg 11:51 PM [facility] HCO3 Arterial 24.9 20.0 - 30.0 mmol/L 08/16/2022 11:51 PM [facility] BE Arterial 1.3 -2.0 - 2.0 mmol/L 08/16/2022 11:51 PM [facility] Oxyhemoglobin Arterial 94.7 % 08/16/2022 11:51 PM [facility] Dexoyhemoglobin (HHB) % 2.0 % 08/16/2022 11:51 PM [facility] Methemoglobin 1.2 0.0 - 2.0 % 08/16/2022 11:51 PM [facility] Carboxyhemoglobin 2.1(H) 0.0 - 2.0 % 2022 11:51 PM [facility] O2 Content Arterial 15.1 Interpret within clinical context ml/dL 08/16/2022 11:51 PM CDT [facility] Hemoglobin by COOX 11.3(L) 12.0 - 17.6 g/dL 08/16/2022 11:51 PM CDT [facility] O2 Saturation Arterial 98 90 - 100 % 08/16/2022 11:51 PM CDT [facility] FI O2 Arterial 70.0 % 08/16/2022 11:51 PM CDT [facility] Comment:40L Blood, arterial ARTERIAL BLOOD SPECIMEN / Unknown Arterial Puncture / Unknown 08/16/2022 11:31 PM CDT 08/16/2022 11:47 PM CDT Narrative [facility] - 08/16/2022 11:51 PM CDT Carboxyhemoglobin Normal Concentration: Non-smokers: 0-2%; Smokers: 0-9%; Toxic: >20% George Loza SLABBING MACHINE OPERATOR-COSTUME DESIGNER LAB - BLOOD GASES ORDERABLES Performing Organization Address City/State/[facility] Co de Phone Number [address] [address], [facility] [phone] * XR ABDOMEN KUB PORTABLE (08/16/2022 8:50 [...] region. > Dictated by Brandi Moeller MD ([employer] Top Helper) Justin Pfeiffer have personally reviewed and interpreted [...] region. > Dictated by Brandi Moeller MD ([employer] Top Helper) IJustin have personally reviewed and interpreted this examination/study. > Interpreting Provider: Justin Cintron on 08/17/2022 10:39 AM George Loza SLABBING MACHINE OPERATOR-COSTUME DESIGNER DIAGNOSTIC IMAGING ORDERABLES * (ABNORMAL) CBC W/O DIFFERENTIAL (08/13/2022 9:05 AM T) WBC 9.1 3.5 - 10.5 10 3/uL 08/13/2022 9:33 AM [facility] RBC 3.37(L) 4.30 - 5.70 10 6/uL 08/13/2022 9:33 AM [facility] Hemoglobin 9.8(L) 12.0 - 17.6 g/dL 08/13/2022 9:33 AM [facility] Hematocrit 30.1(L) 35.2 - 51.7 % 08/13/2022 9:33 AM [facility] MCV 89.3 80.7 - 98.3 fL 08/13/2022 9:33 AM [facility] MCH 29.1 26.7 - 34.0 pg 08/13/2022 9:33 AM [facility] MCHC 32.6 30.8 - 35.9 g/dL 08/13/2022 9:33 AM [facility] RDW-SD 47.5 36.0 - 50.0 fL 08/13/2022 9:33 AM [facility] RDW-CV 14.6 11.2 - 14.8 % 08/13/2022 9:33 AM [facility] Platelet Count 153 150 - 400 10 3/uL 08/13/2022 9:33 AM CDT [facility] MPV 10.7 9.4 - 12.9 fL 08/13/2022 9:33 AM CDT [facility] nRBC Absolute 0.02(H) 0 10 3/uL 08/13/2022 9:33 AM CDT [facility] nRBC Auto 0.2(H) 0 /100 WBC 08/13/2022 9:33 AM CDT [facility] Blood BLOOD SPECIMEN / Unknown Venipuncture / Unknown 08/13/2022 9:05 AM CDT 08/13/2022 9:27 AM CDT Lalit Galicia MD LAB - HEMATOLOGY ORD ERABLES [address] [address], [facility] [phone] * (ABNORMAL) CK BLOOD (08/13/2022 9:05 AM CDT) Only the most recent of4 resultswithin the time period is included. CK Total 458(H) 30 - 200 U/L 08/13/2022 9:52 AM CDT [facility] Blood BLOOD SPECIMEN / Unknown Venipuncture / Unknown 08/13/2022 9:05 AM CDT 08/13/2022 9:28 AM CDT Joe Crowder PA-C LAB - CHEMISTRY O RDERAFLIP [address] [address], [place] [phone] * (ABNORMAL) CULTURE SPUTUM+GRAM STAIN (08/12/2022 12:00 [...] field Polymorphonuclear cells 08/14/2022 12:19 PM CDT [facility] MICROBIOLOGY Gram Stain Moderate Gram-positive cocci 08/14/2022 12:19 PM CDT [facility] MICROBIOLOGY Gram Stain Moderate Gram-positive bacilli 08/14/2022 12:19 PM CDT [facility] MICROBIOLOGY Gram Stain Light Gram-negative bacilli 08/14/2022 12:19 PM CDT [facility] MICROBIOLOGY Microbiology SPECIMEN FROM ENDOTRACHEAL TUBE / [...] Crowder PA-C LAB - MICROBIOLOG Y ORDERABLES [facility] MICROBIOLOGY [address] [place] [address], [facility] [phone] * MRSA DNA PCR (08/12/2022 10:10 AM CDT) [facility] MRSA DNA by PCR Not detected Not detected 08/12/2022 3:00 PM CDT [facility] MICROBIOLOGY Microbiology SPECIMEN FROM NASAL FOSSAE / Unknown Collection / Unknown 08/12/2022 10:10 AM CDT 08/12/2022 10:14 AM CDT Narrative [facility] MICROBIOLOGY - 08/12/2022 3:00 PM CDT Methicillin-resistant Staphylococcus aureus (MRSA) DNA is not detected (presumed not colonized with MRSA). Lalit Galicia MD LAB - MICROBIOLOGY O RDERABLES [facility] MICROBIOLOGY [address] [place], [place] [address], [facility] [phone] * (ABNORMAL) URINALYSIS W/MICROSCOPIC NO CULTURE (08/12/2022 8:23 AM CDT) Color UA Margi(A) Straw, Yellow 08/12/2022 8:42 AM [facility] Clarity UA Slt Cloudy(A) Clear 08/12/2022 8:42 AM [facility] Specific [place] UA 1.028 1.005 - 1.030 08/12/2022 8:42 AM [facility] pH UA 5.0 5.0 - 8.0 pH 08/12/2022 8:42 AM [facility] Protein UA Negative Negative 08/12/2022 8:42 AM [facility] Glucose UA Negative Negative 08/12/2022 8:42 AM [facility] Ketone UA Trace(A) Negative 08/12/2022 8:42 AM [facility] Bilirubin UA Negative Negative 08/12/2022 8:42 AM [facility] Blood UA Negative Negative 08/12/2022 8:42 AM [facility] Nitrite UA Negative Negative 08/12/2022 8:42 AM [facility] Leukocyte Esterase Negative Negative 08/12/2022 8:42 AM [facility] Urobilinogen UA 2.0(A) Negative mg/dL 08/12/2022 8:42 AM [facility] RBC UA 0-2 None Seen, 0-2, 3-5 /HPF 08/12/2022 8:42 AM [facility] WBC UA 0-5 None Seen, 0-5 /HPF 08/12/2022 8:42 AM [facility] Squamous Epithelial Cells UA 0-2 None Seen, 0-2, 3-5 /HPF 08/12/2022 8:42 AM CDT [facility] Mucus UA 1+ /LPF 08/12/2022 8:42 AM CDT [facility] Urine URINE SPECIMEN OBTAINED BY SINGLE CATHETERIZATION OF URINARY BLADDER / Unknown Collection / Unknown 08/12/2022 8:23 AM CDT 08/12/2022 8:27 AM CDT Narrative [facility] - 08/12/2022 8:42 AM CDT Joe Crowder PA-C LAB - URINALYSIS ORDERABLES [facility] [address] [place] [address], [facility] [phone] * CULTURE BLOOD (08/12/2022 8:03 AM CDT) Only the most recent of2 resultswithin the time period is included. Pathologist [facility] Culture No growth day 5 GIANNA 08/17/2022 10:31 AM CDT [facility] MICROBIOLOGY Blood PERIPHERAL BLOOD / Unknown Venipuncture / Unknown 08/12/2022 8:03 AM CDT 08/12/2022 8:27 AM CDT Joe Crowder PA-C LAB - MICROBIOLOG Y ORDERABLES [facility] MICROBIOLOGY [address] [place] [address], [facility] [phone] * EKG 12-LEAD (08/09/2022 7:50 AM CDT) Ventricular Rate 70 BPM [facility] Atrial Rate 70 BPM [facility] P-R Interval 210 ms [facility] QRS Duration ms 96 ms [facility] Q-T Interval ms 398 ms [facility] QTC Calculation (Bezet) 429 ms [facility] Calculated P [place] 64 degrees [facility] Calculated R [place] 46 degrees [facility] Calculated T [place] 73 degrees [facility] Interpretation EKG SINUS RHYTHM WITH 1ST DEGREE A-V BLOCK NONSPECIFIC T WAVE ABNORMALITY ABNORMAL ECG NO PREVIOUS ECGS AVAILABLE Confirmed by MARK BENITEZ MD ([id number]) on 08/11/2022 1:37:50 PM [facility] 08/09/2022 7:50 AM CDT 08/11/2022 1:37 PM CDT Mark Mcintyre MD ECG ORDERABLES [facility] * XR KNEE LEFT 2VW OR LESS (08/08/2022 3:18 PM CDT) Anatomical Region Laterality Modality Lower Extremity Radiographic Sabina ging 08/08/2022 3:13 PM CDT Impressions 08/08/2022 3:59 PM CDT IMPRESSION: No acute fracture or dislocation identified. Report dictated by Brandi Amador MD (vice president diversity). Rhoda Pfeiffer MD have personally reviewed and interpreted this examination/study. > Interpreting Provider: Rhoda Damon MD on 08/08/2022 3:59 PM Narrative 08/08/2022 3:59 PM CDT PROCEDURE: XR KNEE LEFT 2VW OR LESS, DATE/TIME OF EXAM: 08/08/2022 3:19 PM, LOCATION [facility] INDICATION: T14.90XA: Trauma ADDITIONAL CLINICAL INFORMATION: Ordering [...] DATE/TIME OF EXAM: 08/08/2022 3:19 PM, LOCATION [facility] INDICATION: T14.90XA: Trauma ADDITIONAL CLINICAL INFORMATION: Ordering Provider Reason For Exam: trauma COMPARISON: None. FINDINGS: The osseous structures are intact and well aligned without acutefracture or dislocation. The knee joint space is preserved. No joint effusion is seen. Bone density and texture are normal. IMPRESSION: No acute fracture or dislocation identified. Report dictated by Brandi Amador MD (vice president diversity). Rhoda Pfeiffer MD have personally reviewed and [...] Report dictated by Krzysztof Selby MD, PhD (vice president diversity). Rhoda Pfeiffer MD have personally reviewed and interpreted this examination/study. > Interpreting Provider: Rhoda Damon MD on 08/08/2022 3:25 PM Narrative 08/08/2022 3:25 PM CDT PROCEDURE: XR PELVIS 1 OR 2VW, DATE/TIME OF EXAM: 08/08/2022 2:15 PM, LOCATION [facility] INDICATION: T14.90XA: Trauma ADDITIONAL CLINICAL INFORMATION: Ordering [...] DATE/TIME OF EXAM: 08/08/2022 2:15 PM, LOCATION [facility] INDICATION: T14.90XA: Trauma ADDITIONAL CLINICAL INFORMATION: Ordering [...] Report dictated by Krzysztof Selby MD, PhD (vice president diversity). Rhoda Pfeiffer MD have personally reviewed and interpreted this examination/study. > Interpreting Provider: Rhoda Damon MD on 08/08/2022 3:25 PM An Bertrand MD DIAGNOSTIC IMAGING O RDERABLES * BLOOD TYPE VERIFICATION (08/08/2022 2:04 PM CDT) ABO Rh O POS 08/08/2022 2:4 9 PM CDT [facility] Blood Bank BLOOD SPECIMEN / Unknown 08/08/2022 2:04 PM CDT 08/08/2022 2:04 PM CDT Fouzia Bartlett MD LAB - BLOOD BANK ORD ERABLES [facility] [address] [place] [address], [facility] [phone] * CT CHEST ABDOMEN PELVIS W CONT [...] diverticulitis. Report dictated by Rene Loera MD, (vice president diversity). IJustin have personally reviewed and interpreted this examination/study. > Interpreting Provider: Justin Cintron on 08/08/2022 2:37 PM Narrative 08/08/2022 2:37 PM CDT PROCEDURE: CT CHEST ABDOMEN PELVIS W CONT, DATE/TIME OF EXAM: 08/08/2022 2:01 PM, LOCATION [facility] INDICATION: T14.90XA: Trauma ADDITIONAL CLINICAL INFORMATION: Ordering [...] CONT, DATE/TIME OF EXAM:08/08/2022 2:01 PM, LOCATION [facility] INDICATION: T14.90XA: Trauma ADDITIONAL CLINICAL INFORMATION: Ordering [...] Report dictated by Rene Loera MD, MD (vice president diversity). I, Justin Cintron have personally reviewed and [...] DATE/TIME OF EXAM: 08/08/2022 2:01 PM, LOCATION [facility] INDICATION: T14.90XA: Trauma EXAMINATION: 1. Computed tomography (CT) of the head without contrast 2. CT of the maxillofacial bones, orbits, and paranasal sinuses without contrast 3. CT of the cervical spine without contrast 4. CT of the thoracic spine without contrast 5. CT of the lumbar spine without contrast ADDITIONAL CLINICAL INFORMATION: Ordering Provider Reason For Exam: trauma (accession [id number]), trauma, left face abrasion (accession [id number]) Technologist Note: None. Additional: None. TECHNIQUE: CT [...] DATE/TIME OF EXAM: 08/08/2022 2:01 PM, LOCATION [facility] INDICATION: T14.90XA: Trauma EXAMINATION: 1. Computed tomography (CT) of the head without contrast 2. CT of the maxillofacial bones, orbits, and paranasal sinuses without contrast 3. CT of the cervical spine without contrast 4. CT of the thoracic spine without contrast 5. CT of the lumbar spine without contrast ADDITIONAL CLINICAL INFORMATION: Ordering Provider Reason For Exam: trauma (accession [id number]),trauma, left face abrasion (accession [id number]) Technologist Note: None. Additional: None. TECHNIQUE: CT [...] DATE/TIME OF EXAM: 08/08/2022 2:01 PM, LOCATION [facility] INDICATION: T14.90XA: Trauma EXAMINATION: 1. Computed tomography (CT) of the head without contrast 2. CT of the maxillofacial bones, orbits, and paranasal sinuses without contrast 3. CT of the cervical spine without contrast 4. CT of the thoracic spine without contrast 5. CT of the lumbar spine without contrast ADDITIONAL CLINICAL INFORMATION: Ordering Provider Reason For Exam: trauma (accession [id number]), trauma, left face abrasion (accession [id number]) Technologist Note: None. Additional: None. TECHNIQUE: CT [...] DATE/TIME OF EXAM: 08/08/2022 2:01 PM, LOCATION [facility] INDICATION: T14.90XA: Trauma EXAMINATION: 1. Computed tomography (CT) of the head without contrast 2. CT of the maxillofacial bones, orbits, and paranasal sinuses without contrast 3. CT of the cervical spine without contrast 4. CT of the thoracic spine without contrast 5. CT of the lumbar spine without contrast ADDITIONAL CLINICAL INFORMATION: Ordering Provider Reason For Exam: trauma (accession [id number]),trauma, left face abrasion (accession [id number]) Technologist Note: None. Additional: None. TECHNIQUE: CT [...] DATE/TIME OF EXAM: 08/08/2022 2:01 PM, LOCATION [facility] INDICATION: T14.90XA: Trauma EXAMINATION: 1. Computed tomography (CT) of the head without contrast 2. CT of the maxillofacial bones, orbits, and paranasal sinuses without contrast 3. CT of the cervical spine without contrast 4. CT of the thoracic spine without contrast 5. CT of the lumbar spine without contrast ADDITIONAL CLINICAL INFORMATION: Ordering Provider Reason For Exam: trauma (accession [id number]), trauma, left face abrasion (accession [id number]) Technologist Note: None. Additional: None. TECHNIQUE: CT [...] DATE/TIME OF EXAM: 08/08/2022 2:01 PM, LOCATION [facility] INDICATION: T14.90XA: Trauma EXAMINATION: 1. Computed tomography (CT) of the head without contrast 2. CT of the maxillofacial bones, orbits, and paranasal sinuses without contrast 3. CT of the cervical spine without contrast 4. CT of the thoracic spine without contrast 5. CT of the lumbar spine without contrast ADDITIONAL CLINICAL INFORMATION: Ordering Provider Reason For Exam: trauma (accession [id number]),trauma, left face abrasion (accession [id number]) Technologist Note: None. Additional: None. TECHNIQUE: CT [...] DATE/TIME OF EXAM: 08/08/2022 2:01 PM, LOCATION [facility] INDICATION: T14.90XA: Trauma EXAMINATION: 1. Computed tomography (CT) of the head without contrast 2. CT of the maxillofacial bones, orbits, and paranasal sinuses without contrast 3. CT of the cervical spine without contrast 4. CT of the thoracic spine without contrast 5. CT of the lumbar spine without contrast ADDITIONAL CLINICAL INFORMATION: Ordering Provider Reason For Exam: trauma (accession [id number]), trauma, left face abrasion (accession [id number]) Technologist Note: None. Additional: None. TECHNIQUE: CT [...] DATE/TIME OF EXAM: 08/08/2022 2:01 PM, LOCATION [facility] INDICATION: T14.90XA: Trauma EXAMINATION: 1. Computed tomography (CT) of the head without contrast 2. CT of the maxillofacial bones, orbits, and paranasal sinuses without contrast 3. CT of the cervical spine without contrast 4. CT of the thoracic spine without contrast 5. CT of the lumbar spine without contrast ADDITIONAL CLINICAL INFORMATION: Ordering Provider Reason For Exam: trauma (accession [id number]),trauma, left face abrasion (accession [id number]) Technologist Note: None. Additional: None. TECHNIQUE: CT [...] DATE/TIME OF EXAM: 08/08/2022 2:01 PM, LOCATION [facility] INDICATION: T14.90XA: Trauma EXAMINATION: 1. Computed tomography (CT) of the head without contrast 2. CT of the maxillofacial bones, orbits, and paranasal sinuses without contrast 3. CT of the cervical spine without contrast 4. CT of the thoracic spine without contrast 5. CT of the lumbar spine without contrast ADDITIONAL CLINICAL INFORMATION: Ordering Provider Reason For Exam: trauma (accession [id number]), trauma, left face abrasion (accession [id number]) Technologist Note: None. Additional: None. TECHNIQUE: CT [...] DATE/TIME OF EXAM: 08/08/2022 2:01 PM, LOCATION [facility] INDICATION: T14.90XA: Trauma EXAMINATION: 1. Computed tomography (CT) of the head without contrast 2. CT of the maxillofacial bones, orbits, and paranasal sinuses without contrast 3. CT of the cervical spine without contrast 4. CT of the thoracic spine without contrast 5. CT of the lumbar spine without contrast ADDITIONAL CLINICAL INFORMATION: Ordering Provider Reason For Exam: trauma (accession [id number]),trauma, left face abrasion (accession [id number]) Technologist Note: None. Additional: None. TECHNIQUE: CT [...] An Bertrand MD CT ORDERABLES * PTT [facility] (08/08/2022 1:36 PM CDT) APTT 23.3 23.0 - 38.4 Seconds 08/08/2022 2:07 PM CDT [facility] Comment:Suggested therapeuti c range for full dose I.V. unfractionated heparin therapy for venous thromboembolism is 71 to 109 seconds. Blood BLOOD SPECIMEN / Unknown Venipuncture / Unknown 08/08/2022 1:36 PM CDT 08/08/2022 1:41 PM CDT An Bertrand MD LAB - COAGULATION OR DERABLES Performing Organization Address [facility] Co de Phone Number [facility] [address] [place] [address], [facility] [phone] * PT-INR [facility] (08/08/2022 1:36 PM CDT) Pathologist [facility] PT 13.3 12.1 - 14.8 Seconds 08/08/2022 2:07 PM CDT [facility] INR 1.0 See Comment 08/08/2022 2:07 PM CDT [facility] Comment:The suggested therap eutic range for standard coumadin (warfarin) therapy is an INR of 2.0-3.0. For high-risk patients (Mechanical Mitral Valve Prosthesis, etc.), the suggested prophylactic therapeutic range is an INR of 2.5-3.5. Blood BLOOD SPECIMEN / Unknown Venipuncture / Unknown 08/08/2022 1:36 PM CDT 08/08/2022 1:41 PM CDT An Bertrand MD LAB - COAGULATION OR DERABLES Performing Organization Address City/[facility] Co de Phone Number [facility] [address] [place] [address], [facility] [phone] * TYPE + SCREEN PANEL (08/08/2022 1:36 PM CDT) Antibody Screen NEG 2:34 PM CDT [facility] ABO Rh O POS 08/08/2022 2:34 PM CDT [facility] Blood Bank BLOOD SPECIMEN / Unknown Venipuncture / Unknown 08/08/2022 1:36 PM CDT 08/08/2022 1:45 PM CDT An Bertrand MD LAB - BLOOD BANK ORD MAIDA [facility] [address] [place] [address], [place] [phone] * (ABNORMAL) HEPATIC FUNCTION PANEL (08/08/2022 1:36 PM CDT) Pathologist [facility] Protein Total 7.5 6.0 - 8.3 g/dL 023 2:15 PM CDT [facility] Albumin 4.2 3.4 - 5.0 g/dL 08/08/2022 2:15 PM CDT [facility] Bilirubin Total 0.6 0.2 - 1.2 mg/dL 07/12 2:15 PM CDT [facility] Bilirubin Conjugated 0.3 0.1 - 0.5 mg/dL 08/08/2022 2:15 PM CDT [facility] Bilirubin Unconjugated 0.3 Unconjugated Bilirubin is a calculated value: Reference ranges have not been established. mg/dL 08/08/2022 2:15 PM CDT [facility] Alkaline Phosphatase 48 40 - 150 U/L 08/08/2022 2:15 PM CDT [facility] ALT 122(H) 5 - 55 U/L 08/08/2022 2:15 PM CDT [facility] AST 240(H) 5 - 34 U/L 08/08/2022 2:15 PM T [facility] Albumin/Globulin Ratio 1.3 1.1 - 2.3 08/08/2022 2:15 PM CDT [facility] Blood BLOOD SPECIMEN / Unknown Venipuncture / Unknown 08/08/2022 1:36 PM CDT 08/08/2022 1:40 PM CDT An Bertrand MD LAB - CHEMISTRY ORDE ALAN [facility] [address] [place] [address], [facility] [phone] * LIPASE BLOOD (08/08/2022 1:36 PM CDT) Lipase 20 8 - 78 U/L 08/08/2022 2:11 PM CDT [facility] Blood BLOOD SPECIMEN / Unknown Venipuncture / Unknown 08/08/2022 1:36 PM CDT 08/08/2022 1:40 PM CDT [facility] - 08/08/2022 2:11 PM CDT Lipase results from the Dixon Alinity analyzer may not be comparable with other methodologies. An Bertrand MD LAB - CHEMISTRY [place] [address] [address], [place] [phone] * AMYLASE BLOOD (08/08/2022 1:36 PM CDT) Pathologist [facility] Amylase 42 25 - 125 U/L 08/08/2022 2:11 PM CDT [facility] Blood BLOOD SPECIMEN / Unknown Venipuncture / Unknown 08/08/2022 1:36 PM CDT 08/08/2022 1:40 PM CDT An Bertrand MD LAB - CHEMISTRY [place] [address] [address], [place] [phone] * ALCOHOL ETHYL BLOOD (08/08/2022 1:36 PM CDT) Ethanol (mg/dL) <10 <10 mg/dL 2:11 PM CDT [facility] Ethanol Calculated (g/dL) <0.010 <=0.010 g/dL 08/08/2022 2:11 PM CDT [facility] Blood BLOOD SPECIMEN / Unknown Venipuncture / Unknown 08/08/2022 1:36 PM CDT 08/08/2022 1:40 PM CDT Narrative [facility] - 08/08/2022 2:11 PM CDT Ethanol Interp <10: None Detected. Depression of DEFENSIVE LINE COACH: >100 mg/dl Potentially Critical: >250 mg/dl Potentially [...] Bertrand MD LAB - CHEMISTRY [facility] Organization Address City/State/ZIP Co de Phone Number [facility] [address] [place] [address], [facility] [phone] Care Teams Cheesemaker Helper Relationship Specialty Start Date End Date Farhad Bridges MD PCP - General Family Medicine 11/29/18 Tiffany Aguirre MD [address] [phone] Cardiovascular Disease 11/29/18
== END 2024-04-06 04:56 | disposition left against medical advice (07) ==
LOC: ANHED 04-06 04:46
PROVIDERS: Physician Assistant; Emergency Provider Emergency Medicine; PCP Family Medicine
DX: J18.9 Pneumonia, unspecified organism (principal); J44.9 Chronic obstructive pulmonary disease, unspecified; K21.9 Gastro-esophageal reflux disease without esophagitis; Z85.46 Personal history of malignant neoplasm of prostate; E78.2 Mixed hyperlipidemia; Z87.891 Personal history of nicotine dependence; Z20.822 Contact with and (suspected) exposure to COVID-19
CPT/HCPCS: 36415; 71046; 80053; 81003; 83880; 84484; 85025; 85610; 85730; 87637; 93005; 94640; 99284; A9270

== ENCOUNTER → 2024-04-11 10:52 | Outpatient (CLI) | payer MEDICARE, SELFPAY | LOC: EXPTRAD 10:53 | PROVIDERS: PCP Family Medicine; Visit Provider Family Medicine | DX: G89.29 Other chronic pain (principal); S22.080D Wedge compression fracture of T11-T12 vertebra, subsequent encounter for fracture with routine healing; X58.XXXD Exposure to other specified factors, subsequent encounter | CPT/HCPCS: 72110 ==

== ENCOUNTER 2024-07-01 10:04 | Outpatient (CLI) | payer MEDICARE, SELFPAY ==
--- OUTSIDE RECORDS SUMMARY | 2024-07-01 10:09 | XMS_ITS | Referral Summary ---
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 Gender Identity Not on file Sexual Orientation Not on file Last Filed Vital Signs Vital Sign Reading Time Taken Comments Blood Pressure 149/105 04/18/2019 1:51 PM CDT pt states that he feels fine Pulse 98 04/18/2019 1:51 PM CDT Temperature 36.9 C (98.5 F) 04/18/2019 1:51 PM CDT Respiratory Rate 22 02/24/2019 1:59 PM CHEMICAL RESEARCH WORKER Oxygen Saturation 96% 02/24/2019 1:5 9 PM CHEMICAL RESEARCH WORKER Inhaled Oxygen Concentration - - Weight 88.9 kg (196 lb) 04/18/2019 1:51 PM CDT Height 172.7 cm (5' 8 ) 04/18/2019 1:51 PM CDT Body Mass Index 29.8 04/18/2019 1:51 PM CDT Plan of Treatment Not on file Insurance ANTHEM ACCESS CHOICE ANTHEM ACCESS ANTHEM ACCESS CHOICE Care Teams Development Technologist Relationship Specialty Start Date End Date Farhad Bridges MD [address] [address] PCP - General Family Medicine 03/31/19 Dwight Aguirre MD [address] [address] Consulting Physician Urology 04/18/19 Joshua Fung MD [address] [address] Consulting Physician Urology 04/18/19 Migue Chaudhari MD [address] [address] Consulting Physician Colon and Rectal Surgery 04/24/19
--- OUTSIDE RECORDS SUMMARY | 2024-07-01 10:09 | XMS_ITS | CONTINUITY OF CARE DOCUMENT ---
Author Name catie misaelantonio Address Unknown Organization [facility] Address [address] [place] [address] Phone [phone] Care Team Providers Care Urology Teacher Name Role Phone Fernandez GILLESPIE, Abner Unavailable YUMI XIE MD Unavailable [phone] YUMI XIE MD Unavailable PROBLEMS Condition [...] In-person encounter Office Visit YUMI XIE MD [facility] 7 - 7 In-person encounter Office Visit YUMI XIE MD [facility] 8 - 7 In-person encounter Office Visit YUMI XIE MD [facility] 2 - 7 In-person encounter Office Visit YUMI XIE MD [facility] 5 - 4 In-person encounter Office Visit YUMI XIE MD [facility] 7 - 4 In-person encounter Office Visit YUMI XIE MD [facility] 0 - 4 In-person encounter Office Visit YUMI XIE MD [facility] 5 - 6 In-person encounter Office Visit YUMI XIE MD [facility] 1 - 1 In-person encounter Office Visit YUMI XIE MD [facility] 3 - 4 In-person encounter Office Visit YUMI XIE MD [facility] 2 - 9 In-person encounter Office Visit YUMI XIE MD [facility] 0 - 5 In-person encounter Office Visit YUMI XIE MD [facility] 0 - 6 In-person encounter Office Visit YUMI XIE MD [facility] 0 - 7 In-person encounter Office Visit YUMI XIE MD [facility] 0 - 9 In-person encounter Office Visit YUMI XIE MD [facility] 9 - 7 In-person encounter Office Visit YUMI XIE MD [facility] 6 - 2 In-person encounter Office Visit YUMI XIE MD [facility] 5 - 2 In-person encounter Office Visit YUMI XIE MD [facility] 1 - 4 In-person encounter Office Visit YUMI XIE MD [facility] 6 - 3 In-person encounter Office Visit YUMI XIE MD [facility] 9 - 3 In-person encounter Office Visit YUMI XIE MD [facility] 6 - 5 In-person encounter Office Visit YUMI XIE MD [facility] 7 - 4 In-person encounter Office Visit YUMI XIE MD [facility] 4 - 3 In-person encounter Office Visit YUMI XIE MD [facility] 4 - 2 In-person encounter Office Visit YUMI XIE MD [facility] 3 - 0 In-person encounter Office Visit YUMI XIE MD [facility] 2 - 4 In-person encounter Office Visit YUMI XIE MD [facility] 0 - 2 In-person encounter Office Visit YUMI XIE MD [facility] 1 - 7 In-person encounter Office Visit YUMI XIE MD [facility] 1 - 3 In-person encounter Office Visit YUMI XIE MD [facility] 9 - 6 In-person encounter Office Visit YUMI XIE MD [facility] 8 - 3 In-person encounter Office Visit YUMI XIE MD [facility] 3 - 8 In-person encounter Office Visit YUMI XIE MD [facility] 9 - 8 In-person encounter Office Visit YUMI XIE MD [facility] 3 - 6 In-person encounter Office Visit YUMI XIE MD [facility] 6 - 8 In-person encounter Office Visit Kimberli Art [facility] 8 - 2 In-person encounter Office Visit YUMI XIE MD [facility] 8 - 2 In-person encounter Office Visit YUMI XIE MD [facility] 0 - 9 In-person encounter Office Visit YUMI XIE MD [facility] 9 - 4 In-person encounter Office Visit Kimberli Art [facility] 6 - 2 In-person encounter Office Visit YUMI XIE MD [facility] HTN essentialOther and unspecified hyperlipidemiaGERDAlopeciaGout 3 - 2 In-person encounter Office Visit YUMI XIE MD [facility] 7 - 2 In-person encounter Office Visit Kimberli Art [facility] 0 - 3 In-person encounter Office Visit Kimberli Art [facility] 3 - 7 In-person encounter Office Visit Kimberli Art [facility] 4 - 8 In-person encounter Office Visit Kimberli Art [facility] 6 - 9 In-person encounter Office Visit Kimberli Art [facility] 3 - 0 In-person encounter Office Visit Kimberli Art [facility] 1 - 8 In-person encounter Office Visit Kimberli Art [facility] 9 - 2 In-person encounter Office Visit Kimberli [facility] Office 2 - 7 In-person encounter Office Visit Kimberli Art [facility] 8 - 0 In-person encounter Office Visit Kimberli Art [facility] 8 - 1 In-person encounter Office Visit Kimberli [facility] Office RESULTS Date Observation Value Provider [...] 1.2 2 urea nitrogen, blood 13.0 mg/dL [facility] 6.0 - 20.0 2 blood glucose, random 93.0 mg/dL [facility] 74.0 - 99.0 2 red blood cell distribution width, size density 47.4 fL [facility] - 2 immature granulocytes, percentage of total cells, blood 0.3 % [facility] - 2 nucleated red blood cells as percent of blood leukocytes 0.0 % [facility] - 2 red blood cell (erythrocyte) count, per high power field 0.0 10*3/UL [facility] - 2 eosinophils as percent of blood leukocytes 4.8 % [facility] - 2 neutrophils as percent of blood leukocytes 54.2 % [facility] - 2 Absolute Neutrophils 3.9 CELLS/UL [facility] 1.5 - 7.8 2 basophils as percent of blood leukocytes 1.0 % [facility] - 2 Absolute Basophils 0.1 CELLS/UL [facility] 0.0 - 0.2 2 monocytes as percent of blood leukocytes 8.3 % [facility] - 2 Absolute Monocytes 0.6 CELLS/UL [facility] 0.2 - 1.0 2 lymphocytes as percent of blood leukocytes 31.4 % [facility] - 2 Absolute Lymphocytes 2.3 CELLS/UL [facility] 0.9 - 3.9 2 mean platelet volume 11.9 (?) [facility] - 2 platelet count 195.0 THOUSAND/ [...] 3.5-5.2 4 sodium, serum 141 mmol/L [facility] [phone]/07/2 4 urea nitrogen/creatinine ratio, serum 15 [facility] [...] 40-74 4 platelet count 270 X10E3/UL [facility] [phone]/07/2 4 red blood cell distribution width 13.5 [...] Payer name Policy type / Coverage type [place] [employer] alliance party ID [id number] [facility] [id number] 1 [facility] [id number] TREATMENT PLAN Date Name CULTURE, SPUTUM/LOWE R RESPIRATORY TESTOSTERONE, TOTAL HEMOGLOBIN A1c TSH, 3RD GENERATION W/REFLEX TO FT4 LIPID PANEL CBC (INCLUDES DIFF/P LT) COMPREHENSIVE METABO LIC PANEL W/EGFR
--- OUTSIDE RECORDS SUMMARY | 2024-07-01 10:09 | XMS_ITS | Clinical Summary ---
Author Organization [facility] Address [address] [place] [address] Phone Care Team Providers Care Commercial Painter Name Role Phone Farhad Bridges MD Primary Care Provider [phone] Dwight Aguirre MD Unavailable Joshua Fung MD Unavailable [phone] Migue Chaudhari MD Unavailable [phone] Allergies No known active allergies Medications diazePAM [...] History Date Comments Hypertension Hyperlipidemia Depression Cancer (HCC) prostate GERD (gastroesophageal reflux disease) Urinary [...] on file 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 Gender Identity Not on file Sexual Orientation Not on file Obstetrics History Last Filed Vital Signs Vital Sign Reading Time Taken Comments Blood Pressure 149/105 04/18/2019 1:51 PM CDT pt states that he feels fine Pulse 98 04/18/2019 1:51 PM CDT Temperature 36.9 C (98.5 F) 04/18/2019 1:51 PM CDT Respiratory Rate 22 02/24/2019 1:59 PM MEDICAL MANAGEMENT TRAINER Oxygen Saturation 96% 02/24/2019 1:5 9 PM MEDICAL MANAGEMENT TRAINER Inhaled Oxygen Concentration - - Weight 88.9 kg (196 lb) 04/18/2019 1:51 PM CDT Height 172.7 cm (5' 8 ) 04/18/2019 1:51 PM CDT Body Mass Index 29.8 04/18/2019 1:51 PM CDT Plan of Treatment Not on file Insurance [facility] [employer] CHOICE ANTHEM ACCESS ANTHEM ACCESS CHOICE Care Teams Commercial Painter Relationship Specialty Start Date End Date Farhad Bridges MD [address] [phone] PCP - General Family Medicine 03/31/19 Dwight Aguirre MD [address] [address] Consulting Physician Urology 04/18/19 Joshua Fung MD [address] [phone] Consulting Physician Urology 04/18/19 Migue Chaudhari MD [address] [address] Consulting Physician Colon and Rectal Surgery 04/24/19
--- OUTSIDE RECORDS SUMMARY | 2024-07-01 10:09 | XMS_ITS ---
Author Organization [facility] Address [address] [place] [address] Phone Care Team Providers Care Import/Export Agent Name Role Phone Farhad Bridges MD Primary Care Provider [phone] Dwight Aguirre MD Unavailable Joshua Fung MD Unavailable [phone] Migue Chaudhari MD Unavailable [phone] Active Problems Problem Noted Date Diagnosed Date [...]
--- OUTSIDE RECORDS SUMMARY | 2024-07-01 10:09 | XMS_ITS | Clinical Summary ---
Author Organization [facility] Address [address] [place] [place] [address] Care Team Providers Care Resume Writer Name Role Phone Farhad Bridges MD Primary Care Provider [phone] Danya Aguirre Unavailable Source Comments [facility],non-owned Affiliates and Associated Physician Practices is amultiple site organization consisting of ambulatory clinics and hospital sitesin [place], [place], [place] and [place]. This disclosure is being madepursuant to the Care Everywhere program and may not contain all information available regarding this patient. Last updated 17.[facility] Allergies No known active allergies Medications * Be aware that medications may not be up to date on this document. Alwaysverify current medications with the patient. omeprazole (PriLOSEC) 40 MG capsule Take 1 [...] 4 Grams (4000 mg) / 24 hours. 3 Active folic acid (Folvite) 1 MG tablet 1 (one) tablet by Enteral Tube route once daily 3 Active melatonin 3 MG tablet Take 3 (three) tablets by mouth at bedtime 3 Active oxyCODONE, immediate release, (Roxicodone) 5 MG tabletIndicati ons:Trauma Take 1 (one) tablet by mouth every 6 hours as needed for Pain 12 tablet 3 Active pregabalin (Lyrica) 75 MG capsule Take 1 (one) capsule by mouth 3 times daily 60 capsule 3 Active Active Problems Problem Noted Date Diagnosed [...] Date Alcohol withdrawal delirium 08/18/2022 08/18/2022 Immunizations Immunization Administration Dates Next Due FLU VACCINE QUAD [...] when you are drinking? 1 or 2 3 Q3: How often do you have si x or more drinks on one occasion? Less than monthly 08/09/2022 Overall Financial Resource Strain (CARDIA) Answe r Date Recorded How hard is it for you to pa y for the very basics like food, housing, medical care, and heating? Not hard at all 08/08/2022 [facility] of Occupat ional Health - Occupational Stress [...] place to sleep or slept in a fpc (including now)? 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 Gender Identity Not on file Sexual Orientation [...] 2006 AAA SCREENING 2021 COVID-19 VACCINE (3 - 2023- season) 2023 09/24/2021, 01/09/2021 DEPRESSION SCREENING 02/10/2024 MEDICARE AWV CALENDAR YEAR 2024 INFLUENZA VACCINE (Season Ended) 2024 01/09/2021, 12/02/2019, 11/29/2018, Additional history exists Respiratory Syncytial Virus (RSV) Vaccine Pt: or [...] complete this topic MENINGOCOCCAL (Group B) VACCINE SHARED DECISION-MAKING Aged Out No longer eligible based on patient's age to complete this topic MENINGOCOCCAL GROUPS A/C/Y/W VACCINE Aged Out No longer eligible based on patient's age to complete this topic Insurance ANTHEM AETNA [facility] MANAGED MEDICARE ADV TP THIRD DEMOCRAT LIABILITY Member Subscriber Plan / Payer (Ef fective 2022-Present) Name:Heladio Cantu Member ID:[id number] Relation to Subscriber:Self Name:Heladio Cantu Subscriber ID:[id number] Payer ID:Not on file Group ID:Not on file Type:Third Green Party Liability [phone] Address: [address] [place] [address] [facility] MANAGED MEDICARE ADV ANTHEM Advance Directives * Full Code (Latest Code Status on File) Date Activated Date Inactivated Comments 08/08/2022 4:34 PM 08/23/2022 4:44 PM Care Teams Resume Writer Relationship Specialty Start Date End Date Farhad Bridges MD PCP - General Family Medicine 11/29/18 Tiffany Aguirre MD [address] [phone] Cardiovascular Disease 11/29/18
--- NOTE | 2024-07-01 15:42 | P.PCNPFT_ITS ---
PFT Procedure Performed PFT Procedure Performed Spirometry with Pre/Post Bronchodilator Plethysmography (Lung Vol) Diffusing Cap (DLCO) Flow Vol Loop PFT Interpretation This is a pulmonary function test with pre and post-bronchodilator spirometry, plethysmography and diffusing capacity. The test was performed and results interpreted in accordance with the 2019 and 2005 ATS/ERS Task Force guidelines respectively using the Global Lung Function Initiative-2012 reference equations. Patient demonstrated good effort and cooperation. Reproducibility criteria were met. The quality of the pre bronchodilator spirometry maneuver was Grade A and post bronchodilator spirometry maneuver was Grade A. Findings: Spirometry: There is decreased maximal expiratory airflow at all lung volumes. The contour the inspiratory flow tracing is normal. The pre bronchodilator FVC is 3.08 L, 76% predicted. The pre bronchodilator FEV1 is 2.03 L, 66% predicted. The pre bronchodilator FEV1: FVC ratio 66%. The post bronchodilator FVC is 3.11 L, representing a 1% increase. The post bronchodilator FEV1 is 2.10 L, rep resenting a 4% increase. The post bronchodilator FEV1: FVC ratio 68%. Plethysmography: The total lung capacity is 5.07 L, 76% predicted. The functional residual capacity is 2.44 L, 70% predicted. The residual volume is 1.80 L, 78% predicted. Diffusing capacity: The diffusing capacity unadjusted for hemoglobin and carboxyhemoglobin is 18.8, 73% predicted. The diffusing capacity adjusted for alveolar volume is 4.02, 98% predicted. Impression: The FEV1 is less than 80% predicted and the FEV1: FVC ratio is greater than the lower limit of normal consistent with Preserved Ratio Impaired Spirometry (PRISm) with a normal FVC. There is no significant improvement after inhaling a single dose of albuterol. The lung volumes are normal. The diffusing capacity is normal. There are no prior studies for comparison
== END 2024-07-01 10:05 | disposition home or self-care (01) ==
LOC: ANHPFT 10:05
PROVIDERS: PCP Family Medicine; Visit Provider Nurse Practitioner Family
DX: R94.2 Abnormal results of pulmonary function studies (principal); R06.09 Other forms of dyspnea
CPT/HCPCS: 94060; 94726; 94729

== ENCOUNTER 2024-07-05 16:10 | Outpatient (CLI) | payer MEDICARE, SELFPAY ==
--- NOTE | ~2024-07-05 | CT_ITS ---
CT Scan of the Chest without Contrast: Clinical Indication: Dyspnea Technique: Contiguous sections were acquired throughout the chest without intravenous contrast. Dose reduction technique was used on this scan by utilizing automated exposure control and iterative recon struction technique. The dose-length product (DLP) was 362.61 mGy-cm. COMPARISON: 10/09/2020 Findings: There is no evidence of any significant mediastinal, hilar or axillary lymphadenopathy. The mediastin al soft tissues appear normal. There is no evidence of pleural or pericardial effusion. Multiple calcified granulomas are present, predominantly at the lung bases. There are multiple mild p atchy groundglass opacities predominantly in the right upper lobe and right middle lobe. 9 mm pleural -based nodule at the left lower lobe is present (axial image 80). Images through the upper abdomen reveal small hiatal hernia. There is severe T12 compression fracture , and appears chronic, but new from prior exam. Probable mild compression deformity of L1, also likel y chronic, though new from prior exam. Impression: Mild patchy ground glass opacities predominantly involving the right upper and middle lobes. Findings suggest infectious/inflammatory process. 9 mm indeterminate pleural-based nodule at the left lower lobe. Follow-up CT scan in 3 months recomme nded. There is a prior granulomatous disease. Small hiatal hernia. Reviewed, dictated and finalized at location . Impression: Mild patchy ground glass opacities predominantly involving the right upper and middle lobes. Findings suggest infectious/inflammatory process. 9 mm indeterminate pleural-based nodule at the left lower lobe. Follow-up CT sc an in 3 months recommended. There is a prior granulomatous disease. Small hiatal hernia.
--- OUTSIDE RECORDS SUMMARY | 2024-07-05 16:13 | XMS_ITS ---
Author Organization [facility] Address [address] [place] [address] Phone Care Team Providers Care Performance Improvement Manager Name Role Phone Farhad Bridges MD Primary Care Provider [phone] Dwight Aguirre MD Unavailable Joshua Fung MD Unavailable [phone] Migue Chaudhari MD Unavailable [phone] Active Problems Problem Noted Date Diagnosed Date [...]
--- OUTSIDE RECORDS SUMMARY | 2024-07-05 16:13 | XMS_ITS | CONTINUITY OF CARE DOCUMENT ---
Author Name catie misaelantonio Address Unknown Organization [facility] Address [address] [place] [address] Phone [phone] Care Team Providers Care Rn Circulating Name Role Phone Fernandez GILLESPIE, Abner Unavailable [phone] YUMI XIE MD Unavailable YUMI XIE MD Unavailable PROBLEMS Condition Status [...] In-person encounter Office Visit YUMI XIE MD [facility] 7 - 7 In-person encounter Office Visit YUMI XIE MD [place] [facility] 8 - 7 In-person encounter Office Visit YUMI XIE MD [place] [facility] 2 - 7 In-person encounter Office Visit YUMI XIE MD [place] [facility] 5 - 4 In-person encounter Office Visit YUMI XIE MD [place] [facility] 7 - 4 In-person encounter Office Visit YUMI XIE MD [place] [facility] 0 - 4 In-person encounter Office Visit YUMI XIE MD [place] [facility] 5 - 6 In-person encounter Office Visit YUMI XIE MD [place] [facility] 1 - 1 In-person encounter Office Visit YUMI XIE MD [place] [facility] 3 - 4 In-person encounter Office Visit YUMI XIE MD [place] [facility] 2 - 9 In-person encounter Office Visit YUMI XIE MD [place] [facility] 0 - 5 In-person encounter Office Visit YUMI XIE MD [place] [facility] 0 - 6 In-person encounter Office Visit YUMI XIE MD [place] [facility] 0 - 7 In-person encounter Office Visit YUMI XIE MD [place] [facility] 0 - 9 In-person encounter Office Visit YUMI XIE MD [place] [facility] 9 - 7 In-person encounter Office Visit YUMI XIE MD [place] [facility] 6 - 2 In-person encounter Office Visit YUMI XIE MD [place] [facility] 5 - 2 In-person encounter Office Visit YUMI XIE MD [place] [facility] 1 - 4 In-person encounter Office Visit YUMI XIE MD [place] [facility] 6 - 3 In-person encounter Office Visit YUMI XIE MD [place] [facility] 9 - 3 In-person encounter Office Visit YUMI XIE MD [place] [facility] 6 - 5 In-person encounter Office Visit YUMI XIE MD [place] [facility] 7 - 4 In-person encounter Office Visit YUMI XIE MD [place] [facility] 4 - 3 In-person encounter Office Visit YUMI XIE MD [place] [facility] 4 - 2 In-person encounter Office Visit YUMI XIE MD [place] [facility] 3 - 0 In-person encounter Office Visit YUMI XIE MD [place] [facility] 2 - 4 In-person encounter Office Visit YUMI XIE MD [place] [facility] 0 - 2 In-person encounter Office Visit YUMI XIE MD [place] [facility] 1 - 7 In-person encounter Office Visit YUMI XIE MD [place] [facility] 1 - 3 In-person encounter Office Visit YUMI XIE MD [place] [facility] 9 - 6 In-person encounter Office Visit YUMI XIE MD [place] [facility] 8 - 3 In-person encounter Office Visit YUMI XIE MD [place] [facility] 3 - 8 In-person encounter Office Visit YUMI XIE MD [place] [facility] 9 - 8 In-person encounter Office Visit YUMI XIE MD [place] [facility] 3 - 6 In-person encounter Office Visit YUMI XIE MD [place] [facility] 6 - 8 In-person encounter Office Visit Kimberli Art [place] [facility] 8 - 2 In-person encounter Office Visit YUMI XIE MD [place] [facility] 8 - 2 In-person encounter Office Visit YUMI XIE MD [place] [facility] 0 - 9 In-person encounter Office Visit YUMI XIE MD [place] [facility] 9 - 4 In-person encounter Office Visit Kimberli [facility] [place] [facility] 6 - 2 In-person encounter Office Visit YUMI XIE MD [place] [facility] HTN essentialOther and unspecified hyperlipidemiaGERDAlopeciaGout 3 - 2 In-person encounter Office Visit YUMI XIE MD [place] [facility] 7 - 2 In-person encounter Office Visit Kimberli [facility] [place] [facility] 0 - 3 In-person encounter Office Visit Kimberli [facility] [place] [facility] 3 - 7 In-person encounter Office Visit Kimberli [facility] [place] [facility] 4 - 8 In-person encounter Office Visit Kimberli [facility] [place] [facility] 6 - 9 In-person encounter Office Visit Kimberli [facility] [place] [facility] 3 - 0 In-person encounter Office Visit Kimberli [facility] [place] [facility] 1 - 8 In-person encounter Office Visit Kimberli [facility] [place] [facility] 9 - 2 In-person encounter Office Visit Kimberli [facility] Office 2 - 7 In-person encounter Office Visit Kimberli [facility] [place] [facility] 8 - 0 In-person encounter Office Visit Kimberli [facility] [place] [facility] 8 - 1 In-person encounter Office Visit Kimberli [facility] Office RESULTS Date Observation Value Provider Reference [...] 1.2 2 urea nitrogen, blood 13.0 mg/dL [facility] 6.0 - 20.0 2 blood glucose, random 93.0 mg/dL [facility] 74.0 - 99.0 2 red blood cell distribution width, size density 47.4 fL [facility] - 2 immature granulocytes, percentage of total cells, blood 0.3 % [facility] - 2 nucleated red blood cells as percent of blood leukocytes 0.0 % [facility] - 2 red blood cell (erythrocyte) count, per high power field 0.0 10*3/UL [facility] - 2 eosinophils as percent of blood leukocytes 4.8 % [facility] - 2 neutrophils as percent of blood leukocytes 54.2 % [facility] - 2 Absolute Neutrophils 3.9 CELLS/UL [facility] 1.5 - 7.8 2 basophils as percent of blood leukocytes 1.0 % [facility] - 2 Absolute Basophils 0.1 CELLS/UL [facility] 0.0 - 0.2 2 monocytes as percent of blood leukocytes 8.3 % [facility] - 2 Absolute Monocytes 0.6 CELLS/UL [facility] 0.2 - 1.0 2 lymphocytes as percent of blood leukocytes 31.4 % [facility] - 2 Absolute Lymphocytes 2.3 CELLS/UL [facility] 0.9 - 3.9 2 mean platelet volume 11.9 (?) [facility] - 2 platelet count 195.0 THOUSAND/ [...] 3.5-5.2 4 sodium, serum 141 mmol/L [facility] [phone]/07/2 4 urea nitrogen/creatinine ratio, serum 15 [facility] [...] 40-74 4 platelet count 270 X10E3/UL [facility] [phone]/07/2 4 red blood cell distribution width 13.5 [...] Payer name Policy type / Coverage type [place] red libertarian ID [facility] [id number] 1 [facility] [id number] TREATMENT PLAN Date Name CULTURE, SPUTUM/LOWE R RESPIRATORY TESTOSTERONE, TOTAL HEMOGLOBIN A1c TSH, 3RD GENERATION W/REFLEX TO FT4 LIPID PANEL CBC (INCLUDES DIFF/P LT) COMPREHENSIVE METABO LIC PANEL W/EGFR
--- OUTSIDE RECORDS SUMMARY | 2024-07-05 16:13 | XMS_ITS | Referral Summary ---
Author Organization [facility] Address [address] [place] [address] Phone Care Team Providers Care Bogger Operator Name Role Phone Farhad Bridges MD Primary Care Provider [phone] Dwight Aguirre MD Unavailable Joshua Fung MD Unavailable [phone] Migue Chaudhari MD Unavailable [phone] Allergies No known active allergies Medications diazePAM [...] on file Legal Sex Male 8:56 PM RAG BALER Gender Identity Not on file Sexual Orientation Not on file Last Filed Vital Signs Vital Sign Reading Time Taken Comments Blood Pressure 149/105 04/18/2019 1:51 PM CDT pt states that he feels fine Pulse 98 04/18/2019 1:51 PM CDT Temperature 36.9 C (98.5 F) 04/18/2019 1:51 PM CDT Respiratory Rate 22 02/24/2019 1:59 PM RAG BALER Oxygen Saturation 96% 02/24/2019 1:5 9 PM RAG BALER Inhaled Oxygen Concentration - - Weight 88.9 kg (196 lb) 04/18/2019 1:51 PM CDT Height 172.7 cm (5' 8 ) 04/18/2019 1:51 PM CDT Body Mass Index 29.8 04/18/2019 1:51 PM CDT Plan of Treatment Not on file Insurance ANTHEM ACCESS CHOICE ANTHEM ACCESS ANTHEM ACCESS CHOICE Care Teams Bogger Operator Relationship Specialty Start Date End Date Farhad Bridges MD [address] [address] PCP - General Family Medicine 03/31/19 Dwight Aguirre MD [address] [address] Consulting Physician Urology 04/18/19 Joshua Fung MD [address] [address] Consulting Physician Urology 04/18/19 Migue Chaudhari MD [address] [address] Consulting Physician Colon and Rectal Surgery 04/24/19
--- OUTSIDE RECORDS SUMMARY | 2024-07-05 16:13 | XMS_ITS | Clinical Summary ---
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 Gender Identity Not on file Sexual Orientation Not on file Obstetrics History Last Filed Vital Signs Vital Sign Reading Time Taken Comments Blood Pressure 149/105 04/18/2019 1:51 PM CDT pt states that he feels fine Pulse 98 04/18/2019 1:51 PM CDT Temperature 36.9 C (98.5 F) 04/18/2019 1:51 PM CDT Respiratory Rate 22 02/24/2019 1:59 PM VICE PRESIDENT INTEGRATED Oxygen Saturation 96% 02/24/2019 1:5 9 PM VICE PRESIDENT INTEGRATED Inhaled Oxygen Concentration - - Weight 88.9 kg (196 lb) 04/18/2019 1:51 PM CDT Height 172.7 cm (5' 8 ) 04/18/2019 1:51 PM CDT Body Mass Index 29.8 04/18/2019 1:51 PM CDT Plan of Treatment Not on file Insurance [facility] [employer] CHOICE ANTHEM ACCESS ANTHEM ACCESS CHOICE Care Teams Costumer Relationship Specialty Start Date End Date Farhad Bridges MD [address] [phone] PCP - General Family Medicine 03/31/19 Dwight Aguirre MD [address] [address] Consulting Physician Urology 04/18/19 Joshua Fung MD [address] [phone] Consulting Physician Urology 04/18/19 Migue Chaudhari MD [address] [address] Consulting Physician Colon and Rectal Surgery 04/24/19
--- OUTSIDE RECORDS SUMMARY | 2024-07-05 16:13 | XMS_ITS | Clinical Summary ---
Author Organization [facility] Address [address] [place] [address] Care Team Providers Care Knitting Demonstrator Name Role Phone Farhad Bridges MD Primary Care Provider [phone] Danya Aguirre Unavailable Source Comments [facility],non-owned Affiliates and Associated Physician Practices is amultiple site organization consisting of ambulatory clinics and hospital sitesin [place], [place], [place] and [place]. This disclosure is being madepursuant to the Care Everywhere program and may not contain all information available regarding this patient. Last updated 17.[facility] [employer] Allergies No known active allergies Medications * [...] and heating? Not hard at all 08/08/2022 [facility] [place] of Occupat ional Health - Occupational Stress [...] place to sleep or slept in a prison (including now)? 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 Gender Identity Not on file Sexual Orientation [...] to complete this topic Insurance ANTHEM AETNA [facility] MANAGED MEDICARE ADV TP THIRD ALLIANCE PARTY LIABILITY Member Subscriber Plan / Payer (Ef fective 2022-Present) Name:Heladio Cantu Member ID:[id number] Relation to Subscriber:Self Name:Heladio Cantu Subscriber ID:[id number] Payer ID:Not on file Group ID:Not on file Type:Third Libertarian Liability [phone] Address: [address] [place] [address] [facility] MANAGED MEDICARE ADV ANTHEM Advance Directives * Full Code (Latest Code Status on File) Date Activated Date Inactivated Comments 08/08/2022 4:34 PM 08/23/2022 4:44 PM Care Teams Knitting Demonstrator Relationship Specialty Start Date End Date Farhad Bridges MD PCP - General Family Medicine 11/29/18 Tiffany Aguirre MD [address] [phone] Cardiovascular Disease 11/29/18
== END 2024-07-05 16:11 | disposition home or self-care (01) ==
PROVIDERS: PCP Family Medicine; Visit Provider Nurse Practitioner Family
DX: R06.09 Other forms of dyspnea (principal); J18.9 Pneumonia, unspecified organism
CPT/HCPCS: 71250

== ENCOUNTER 2024-09-14 10:13 | Outpatient (CLI) | payer MEDICARE, SELFPAY ==
--- NOTE | ~2024-09-14 | NM_ITS ---
EXAMINATION: NM megan stress w perfusion DATE: 09/14/2024 12:09 INDICATION: Other forms of dyspnea TECHNIQUE: Rest images were obtained following intravenous administration of 10 mCi Tc99m tetrofosmin (Myoview). The patient was infused intravenously with Lexiscan (Regadenoson). Then, 33.7 mCi Tc99m t etrofosmin (Myoview) was administered intravenously, and stress images were obtained. Data was recons tructed into short axis and horizontal and vertical long axis SPECT images. Gated SPECT images were a lso obtained. COMPARISON: None. FINDINGS: There is no definite reversible or fixed perfusion abnormality to suggest ischemia or infar ction. There is normal left ventricular chamber size, wall motion and ejection fraction. Left ventr icular ejection fraction measures 68%. IMPRESSION: 1. Normal myocardial perfusion at rest and during stress. 2. Left ventricular ejection fraction measuring 68%. Reviewed, dictated and finalized at location A.
--- NOTE | 2024-09-14 10:39 | EST_ITS ---
Patient Info Name: Heladio Cantu Age: 69 years : 1955 Gender: Male Ht: 68 in Wt: 180 lbs BSA: 2.00 m2 HR: 70 bpm BP: 135 / 72 mmHg Exam Date: 09/14/2024 10:39 AM Patient Status: O Admit Date: 09/14/2024 Exam Type: CA stress megan w NM A regadenoson stress test was performed. Staff Referring Physician: Steven Golden Attending Provider: Steven Golden Exercise Technologist: Abigail Lyons Exercise Physician: Rohith Ramirez DO Summary 1. 1. Negative lexiscan stress test for ischemic ST changes by ECG criteria. 2. 2. Stable hemodynamics throughout the test. 3. 3. Nuclear scan to follow and will be reported separately. Please correlate with it. 4. 4. Patient informed of the above results. Protocol: Lexiscan Stress ECG Details Stage: REST Duration (min): 0 min : 26 sec HR (bpm): 70 SBP (mmHg): --- DBP (mmHg): --- Stage: REST Duration (min): 0 min : 45 sec HR (bpm): 71 SBP (mmHg): 135 DBP (mmHg): 72 Stage: REST Duration (min): 5 min : 6 sec HR (bpm): 72 SBP (mmHg): 135 DBP (mmHg): 72 Stage: STAGE 1 Duration (min): 0 min : 59 sec HR (bpm): 85 SBP (mmHg): 132 DBP (mmHg): 72 Stage: RECOVERY Duration (min): 1 min : 0 sec HR (bpm): 91 SBP (mmHg): 132 DBP (mmHg): 72 Stage: RECOVERY Duration (min): 2 min : 0 sec HR (bpm): 89 SBP (mmHg): 132 DBP (mmHg): 72 Stage: RECOVERY Duration (min): 3 min : 0 sec HR (bpm): 88 SBP (mmHg): 116 DBP (mmHg): 63 Stage: RECOVERY Duration (min): 3 min : 2 sec HR (bpm): 88 SBP (mmHg): 116 DBP (mmHg): 63 Rest HR: 72 bpm Peak HR: 91 bpm Rest Sys BP: 135 mmHg Peak Sys BP: 132 mmHg Max Pred HR: 152 bpm % Max Pred HR: 60 % Target HR: 129 bpm Max RPP: 12,012 bpm*mmHg Termination Reason: Completed protocol Cardiac Symptoms: Shortness of breath Total Time: 1 min : 0 sec Rest Terrell BP: 72 mmHg Peak Terrell BP: 72 mmHg Total Dose: 0.4 mg Resting ECG Sinus rhythm. Stress ECG No ST changes. Arrhythmias None. Report Signatures
--- OUTSIDE RECORDS SUMMARY | 2024-09-14 10:43 | XMS_ITS | Clinical Summary ---
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 Gender Identity Not on file Sexual Orientation Not on file Obstetrics History Last Filed Vital Signs Vital Sign Reading Time Taken Comments Blood Pressure 149/105 04/18/2019 1:51 PM CDT pt states that he feels fine Pulse 98 04/18/2019 1:51 PM CDT Temperature 36.9 C (98.5 F) 04/18/2019 1:51 PM CDT Respiratory Rate 22 02/24/2019 1:59 PM PARISH VISITOR Oxygen Saturation 96% 02/24/2019 1:5 9 PM PARISH VISITOR Inhaled Oxygen Concentration - - Weight 88.9 kg (196 lb) 04/18/2019 1:51 PM CDT Height 172.7 cm (5' 8) 04/18/2019 1:51 PM CDT Body Mass Index 29.8 04/18/2019 1:51 PM CDT Plan of Treatment Not on file Insurance [facility] [place] CHOICE ANTHEM ACCESS ANTHEM ACCESS CHOICE Care Teams Hand Pleater Relationship Specialty Start Date End Date Farhad Bridges MD [address] [phone] PCP - General Family Medicine 03/31/19 Dwight Aguirre MD [address] [address] Consulting Physician Urology 04/18/19 Joshua Fung MD [address] [address] Consulting Physician Urology 04/18/19 Migue Chaudhari MD [address] [address] Consulting Physician Colon and Rectal Surgery 04/24/19
--- OUTSIDE RECORDS SUMMARY | 2024-09-14 10:43 | XMS_ITS ---
Author Organization [facility] Address [address] [place] [address] Phone Care Team Providers Care Drum Cleaner Name Role Phone Farhad Bridges MD Primary Care Provider [phone] Dwight Aguirre MD Unavailable Joshua Fung MD Unavailable [phone] Migue Chaudhari MD Unavailable Active Problems Problem Noted Date Diagnosed Date [...]
--- OUTSIDE RECORDS SUMMARY | 2024-09-14 10:43 | XMS_ITS | Clinical Summary ---
Author Organization [facility] Address [address] [place] [address] Care Team Providers Care Test Lead Application Testing Name Role Phone Farhad Bridges MD Primary Care Provider [phone] Danya Aguirre Unavailable Source Comments [facility],non-owned Affiliates and Associated Physician Practices is amultiple site organization consisting of ambulatory clinics and hospital sitesin [place], [place], [place] and [place]. This disclosure is being madepursuant to the Care Everywhere program and may not contain all information available regarding this patient. Last updated 17.[facility] [employer] Allergies No known active allergies Medications * [...] and heating? 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 MANAGED MEDICARE ADV TP THIRD GREEN PARTY LIABILITY Member Subscriber Plan / Payer (Ef fective 2022-Present) Name:Heladio Cantu Member ID:[id number] Relation to Subscriber:Self Name:Heladio Cantu Subscriber ID:[id number] Payer ID:Not on file Group ID:Not on file Type:Third Green Party Liability [phone] Address: [address] [place] [address] [facility] MANAGED MEDICARE ADV ANTHEM Advance Directives * Full Code (Latest Code Status on File) Date Activated Date Inactivated Comments 08/08/2022 4:34 PM 08/23/2022 4:44 PM Care Teams Test Lead Application Testing Relationship Specialty Start Date End Date Farhad Bridges MD PCP - General Family Medicine 11/29/18 Tiffany Aguirre MD [address] [phone] Cardiovascular Disease 11/29/18
== END 2024-09-14 10:14 | disposition home or self-care (01) ==
LOC: ANHCARD 10:15
PROVIDERS: PCP Family Medicine; Visit Provider Nurse Practitioner Family
DX: R06.09 Other forms of dyspnea (principal)
CPT/HCPCS: 78452; 93017; A9502; J2785

== ENCOUNTER 2024-10-06 14:03 | Outpatient (CLI) | payer MEDICARE, SELFPAY ==
--- NOTE | ~2024-10-06 | CT_ITS ---
EXAMINATION: CT diagnostic chest wo con DATE: 10/06/2024 14:34 INDICATION: R91.1 - Solitary pulmonary nodule TECHNIQUE: Computed tomography (CT) of the chest was performed without intravenous contrast. Additional 3D reconstructions utilizing coronal maximum intensity projection (MIP) were performed. Automated exposure control and iterative reconstruction technique were employed. The dose-length product was 18 5.01 mGy-cm. COMPARISON: CT dated 07/05/2024 FINDINGS: Again seen are numerous small calcified nodules in the right lower lobe consistent with old granulomatous disease. No significant interval change in subtle centrilobular centered groundglass opacities throughout the right upper lobe which are likely related to chronic infectious/inflammatory process. U nchanged 9 mm pleural-based nodule along a small band of linear atelectasis/scarring at the posterior lateral left lower lobe. This underlies several old posterior left rib fractures and likely represents scarring related to old trauma. No new or enlarging pulmonary nodules. No pulmonary edema, pleural effusion or pneumothorax. Heart size is normal. Small amount of atherosclerotic coronary artery calcification. No pericardial effusion. Small sliding-type hiatal hernia. Thoracic aorta is normal in caliber. No pathologically enlarged thoracic lymphadenopathy. Visualized upper abdomen is unremarkable. Mild to moderate thoracic spondylosis with stable appearance of a chronic T12 compression fracture and L1 burst fracture. IMPRESSION: 1. No interval change in a 9 mm subpleural nodule underlying a few old healed rib fractures and oriented along a linear band of discoid atelectasis which suggests this represents pleuroparenchymal scarring related to old trauma. Recommend 6 month follow-up low-dose noncontrast chest CT. Reviewed, dictated and finalized at location A. IMPRESSION: 1. No interval change in a 9 mm subpleural nodule underlying a few old healed r ib fractures and oriented along a linear band of discoid atelectasis which sugg ests this represents pleuroparenchymal scarring related to old trauma. Recommen d 6 month follow-up low-dose noncontrast chest CT.
--- OUTSIDE RECORDS SUMMARY | 2024-10-06 14:09 | XMS_ITS | Clinical Summary ---
Author Organization [facility] Address [address] [place] [address] Care Team Providers Care Manager Trade Marketing Name Role Phone Farhad Bridges MD Primary Care Provider Danya Aguirre Unavailable Source Comments [facility],non-owned Affiliates and Associated Physician Practices is amultiple site organization consisting of ambulatory clinics and hospital sitesin [place], [place], [place] and [place]. This disclosure is being madepursuant to the Care Everywhere program and may not contain all information available regarding this patient. Last updated 17.[facility] [employer] Allergies No known active allergies Medications * [...] and heating? Not hard at all 08/08/2022 [facility] [place] of Occupat ional Health - Occupational Stress [...] place to sleep or slept in a retirement (including now)? 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 Male 4:28 PM OPERATIONS INTERN Gender Identity Not on file Sexual Orientation [...] to complete this topic Insurance ANTHEM AETNA [facility] MANAGED MEDICARE ADV TP THIRD ALLIANCE PARTY LIABILITY Member Subscriber Plan / Payer (Ef fective 2022-Present) Name:Heladio Cantu Member ID:[id number] Relation to Subscriber:Self Name:Heladio Cantu Subscriber ID:[id number] Payer ID:Not on file Group ID:Not on file Type:Third Green Party Liability [phone] Address: [address] [place] [address] [facility] MANAGED MEDICARE ADV ANTHEM Advance Directives * Full Code (Latest Code Status on File) Date Activated Date Inactivated Comments 08/08/2022 4:34 PM 08/23/2022 4:44 PM Care Teams Manager Trade Marketing Relationship Specialty Start Date End Date Farhad Bridges MD PCP - General Family Medicine 11/29/18 Tiffany Aguirre MD [address] [id number] Cardiovascular Disease 11/29/18
--- OUTSIDE RECORDS SUMMARY | 2024-10-06 14:09 | XMS_ITS | Clinical Summary ---
Author Organization 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 Gender Identity Not on file Sexual Orientation Not on file Obstetrics History Last Filed Vital Signs Vital Sign Reading Time Taken Comments Blood Pressure 149/105 04/18/2019 1:51 PM CDT pt states that he feels fine Pulse 98 04/18/2019 1:51 PM CDT Temperature 36.9 C (98.5 F) 04/18/2019 1:51 PM CDT Respiratory Rate 22 02/24/2019 1:59 PM LAUNDRY ATTENDANT Oxygen Saturation 96% 02/24/2019 1:5 9 PM LAUNDRY ATTENDANT Inhaled Oxygen Concentration - - Weight 88.9 kg (196 lb) 04/18/2019 1:51 PM CDT Height 172.7 cm (5' 8) 04/18/2019 1:51 PM CDT Body Mass Index 29.8 04/18/2019 1:51 PM CDT Plan of Treatment Not on file Insurance [facility] [employer] CHOICE ANTHEM ACCESS ANTHEM ACCESS CHOICE Care Teams It Systems Engineer Relationship Specialty Start Date End Date Farhad Bridges MD [address] [id number] PCP - General Family Medicine 03/31/19 Dwight Aguirre MD [address] [address] Consulting Physician Urology 04/18/19 Joshua Fung MD [address] [address] Consulting Physician Urology 04/18/19 Migue Chaudhari MD [address] [address] Consulting Physician Colon and Rectal Surgery 04/24/19
== END 2024-10-06 14:04 | disposition home or self-care (01) ==
PROVIDERS: PCP Family Medicine; Visit Provider Nurse Practitioner Family
DX: R91.1 Solitary pulmonary nodule (principal)
CPT/HCPCS: 71250

== ENCOUNTER 2025-01-12 00:06 | Day surgery (SDC) | payer MEDICARE, SELFPAY ==
[2024-12-22 11:26] VITALS: BMI 27.3
--- OUTSIDE RECORDS SUMMARY | 2025-01-12 00:09 | XMS_ITS | Clinical Summary ---
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 Gender Identity Not on file Sexual Orientation Not on file Last Filed Vital Signs Vital Sign Reading Time Taken Comments Blood Pressure 149/105 04/18/2019 1:51 PM CDT pt states that he feels fine Pulse 98 04/18/2019 1:51 PM CDT Temperature 36.9 C (98.5 F) 04/18/2019 1:51 PM CDT Respiratory Rate 22 02/24/2019 1:59 PM PRINCIPAL 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 Oxygen Saturation 96% 02/24/2019 1:5 9 PM PRINCIPAL TECHNICAL WRITER Inhaled Oxygen Concentration - - Weight 88.9 kg (196 lb) 04/18/2019 1:51 PM CDT Height 172.7 cm (5' 8) 04/18/2019 1:51 PM CDT Body Mass Index 29.8 04/18/2019 1:51 PM CDT Plan of Treatment Not on file Insurance [facility] Impres Medical CHOICE ANTHEM ACCESS ANTHEM ACCESS CHOICE Care Teams Pharmaceutical Sales Representative Relationship Specialty Start Date End Date Farhad Bridges MD [address] [place] [address] PCP - General Family Medicine 03/31/19 Dwight Aguirre MD [address] [address] Consulting Physician Urology 04/18/19 Joshua Fung MD [address] [address] Consulting Physician Urology 04/18/19 Migue Chaudhari MD [address] [place] [address] Consulting Physician Colon and Rectal Surgery 04/24/19
--- OUTSIDE RECORDS SUMMARY | 2025-01-12 00:09 | XMS_ITS ---
Author Organization [facility] Address [address] [place] [address] Phone Care Team Providers Care Heel Cementer Name Role Phone Farhad Bridges MD Primary Care Provider [phone] Dwight Aguirre MD Unavailable Joshua Fung MD Unavailable [phone] Migue Chaudhari MD Unavailable [phone] Active Problems Problem Noted Date Diagnosed Date [...]
--- OUTSIDE RECORDS SUMMARY | 2025-01-12 00:10 | XMS_ITS | Clinical Summary ---
Author Organization [facility] Address [address] [place] [place] [address] Care Team Providers Care Pulley Worker Name Role Phone Farhad Bridges MD Primary Care Provider [phone] Danya Aguirre Unavailable Source Comments [facility],non-owned Affiliates and Associated Physician Practices is amultiple site organization consisting of ambulatory clinics and hospital sitesin [place], [place], [place] and [place]. This disclosure is being madepursuant to the Care Everywhere program and may not contain all information available regarding this patient. Last updated 17.[facility] [employer] Allergies No known active allergies Medications * [...] and heating? Not hard at all 08/08/2022 [facility] [place] of Occupat ional Health - Occupational Stress [...] place to sleep or slept in a detention (including now)? 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 Gender Identity Not on file Sexual [...] (1 of 2) 2006 AAA SCREENING 2021 DEPRESSION SCREENING 02/10/2024 MEDICARE AWV CALENDAR YEAR 2024 COVID-19 VACCINE (3 - season) 2024 09/24/2021, 01/09/2021 INFLUENZA VACCINE (#1) 2024 , 12/02/2019, 11/29/2018, [...] to complete this topic Insurance ANTHEM AETNA [facility] MANAGED MEDICARE ADV TP THIRD CONSTITUTION PARTY LIABILITY Member Subscriber Plan / Payer (Ef fective 2022-Present) Name:Heladio Cantu Member ID:[id number] Relation to Subscriber:Self Name:Heladio Cantu Subscriber ID:[id number] Payer ID:Not on file Group ID:Not on file Type:Third Republican Liability [phone] Address: [address] [place] [address] [facility] MANAGED MEDICARE ADV ANTHEM Advance Directives * Full Code (Latest Code Status on File) Date Activated Date Inactivated Comments 08/08/2022 4:34 PM 08/23/2022 4:44 PM Care Teams Pulley Worker Relationship Specialty Start Date End Date Farhad Bridges MD PCP - General Family Medicine 11/29/18 Tiffany Aguirre MD [address] [phone] Cardiovascular Disease 11/29/18
[2025-01-12 10:24] VITALS: BP 139/84; PULSE 105; RESP 20; TEMP 36.5; O2SAT 96; BMI 28.1
[2025-01-12] MEDS: LACTATED RINGERS 1,000 ML 150 ML IV CONT (10:27)
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
--- NOTE | 2025-01-12 12:42 | SUR.OPER ---
ASCENDING COLON POLYP NOT RETRIEVED. DR. HOWARD AWARE.
--- NOTE | 2025-01-12 12:47 | S_PTH ---
PATIENT: Heladio Cantu LOC: [facility] U#:[id number] AGE/SX: 69/M ROOM: RE01/12/[address]: Faisal Torres MD : [id number] BED: DIS: 01/12/2025 SPEC #: [id number] RECD: 01/12/25 13:53 STATUS: LAYLA REOmkar #: [id number] ÁNGEL: 01/12/25 12:[address]: Faisal Torres DEPT: [facility] Surgical RECD BY: Mona Thomas ENTERED: 01/12/25 13:58 SP TYPE: Surgical OTHR DR: Farhad Bridges MD Tissues: A - Colon Polypectomy B - Colon Polypectomy C - Colon Polypectomy Procedures: Hematoxylin and Eosin Stain Gross and Microscopic Level 4
[2025-01-12 12:48] VITALS: BP 113/71; PULSE 81; RESP 18; O2SAT 93
[2025-01-12 12:58] VITALS: BP 122/77; PULSE 79; RESP 22; O2SAT 96
[2025-01-12 13:08] VITALS: BP 130/85; PULSE 78; RESP 23; O2SAT 95
== END 2025-01-12 13:21 | disposition home or self-care (01) ==
PROVIDERS: PCP Family Medicine; Referring Provider Internal Medicine Gastroenterology; Visit Provider Internal Medicine Gastroenterology
PROC: 0DJD8ZZ Inspection of Lower Intestinal Tract, Via Natural or Artificial Opening Endoscopic (ICD-10-PCS; CPT 45378; principal; 2025-01-12 11:30)
DX: Z12.11 Encounter for screening for malignant neoplasm of colon (principal); D12.3 Benign neoplasm of transverse colon; D12.4 Benign neoplasm of descending colon; K63.5 Polyp of colon; K57.30 Diverticulosis of large intestine without perforation or abscess without bleeding; K64.8 Other hemorrhoids
CPT/HCPCS: 45385; 88305; J2704; J7120